=== PATIENT | female | born 1935 | race Caucasian/White ===

== ENCOUNTER → 2016-12-05 | Outpatient (CLI) | payer MEDICARE, BC ==
[2016-12-05 10:08] LABS: Basophils % (A) 1 %; CH 29.6; CHCM 33.4; Eosinophils # (A) 0.1 k/uL (0-0.7); Eosinophils % (A) 3 %; HCT 34.9 % (34.0-46.0); HDW 2.82; HGB 11.6 gm/dL (11.4-16.0); Luc # (Auto) 0.17; Luc % (Auto) 3; Lymphocytes # (A) 1.9 k/uL (1.0-4.8); Lymphocytes % (A) 37 %; MCH 29.6 pg (25.0-35.0); MCHC 33.3 g/dL (31.0-37.0); Mean Platelet Volume 8.1; Monocytes # (A) 0.3 k/uL (0-1.0); Monocytes % (A) 6 %; Neutrophils # (A) 2.6 k/uL (1.3-7.7); Neutrophils % (A) 51 %; RBC 3.92 m/uL (3.80-5.40); RDW 13.5 % (11.5-15.5); WBC 5.2 k/uL (3.8-10.6); WBC (Perox) 5.52
[2016-12-05 11:52] LABS: ALT 43 U/L (9-52); AST 40 U/L (14-36); Alkaline Phosphatase 68 U/L (38-126); Anion Gap 9 mmol/L; Blood Urea Nitrogen 17 mg/dL (7-17); Carbon Dioxide 29 mmol/L (22-30); Chloride 103 mmol/L (98-107); Cholesterol 133 mg/dL (<200); Creatine Kinase 32 U/L (30-135); Glucose 93 mg/dL (74-99); HDL Cholesterol 49 mg/dL (40-60); Iron 91 ug/dL (37-170); Non-African American GFR(MDRD) 43 (>60 ml/min/1.73 sqM); Potassium 4.4 mmol/L (3.5-5.1); Sodium 141 mmol/L (137-145); Total Bilirubin 0.9 mg/dL (0.2-1.3); Total Protein 6.9 g/dL (6.3-8.2); Triglycerides 230 mg/dL (<150)
[2016-12-05 12:06] LABS: % Iron Saturation 24.5 % (20-50); Total Iron Binding Capacity 371 ug/dL (265-497)
[2016-12-05 12:44] LABS: Vitamin B12 >1000 pg/mL
[2016-12-05 13:15] LABS: Hemoglobin A1C 5.3 % (4.2-6.1)
== END | disposition home or self-care (01) ==
LOC: LABWHC1 09:18
PROVIDERS: ATTEND Family Medicine
DX: M81.0 Age-related osteoporosis without current pathological fracture (principal); I10 Essential (primary) hypertension; N18.3 Chronic kidney disease, stage 3 (moderate); D50.9 Iron deficiency anemia, unspecified; E78.5 Hyperlipidemia, unspecified
CPT/HCPCS: 36415; 80053; 80061; 82306; 82550; 82607; 83036; 83540; 83550; 84439; 84443; 85025

== ENCOUNTER → 2017-01-06 | Outpatient (CLI) | payer MEDICARE, BC ==
--- NOTE | 2017-01-07 09:41 | MM ---
Reason for exam: screening (asymptomatic). Last mammogram was performed 1 year ago. History: Patient is postmenopausal. Family history of breast cancer in paternal aunt. Physical Findings: A clinical breast exam by your physician is recommended on an annual basis and results should be correlated with mammographic findings. MG 3D Screening Mammo W/Cad Bilateral CC and MLO view(s) were taken. Prior study comparison: January 04, 2016, bilateral MG 3d screening mammo w/cad. January 01, 2015, bilateral MG screening mammo w CAD. The breast tissue is almost entirely fat. There is no discrete abnormality. No significant changes when compared with prior studies. ASSESSMENT: Negative, BI-RAD 1 RECOMMENDATION: Routine screening mammogram of both breasts in 1 year.
== END | disposition home or self-care (01) ==
LOC: RADMAMWWP 13:24
PROVIDERS: ATTEND Family Medicine
DX: Z12.31 Encounter for screening mammogram for malignant neoplasm of breast (principal)
CPT/HCPCS: 77063; G0202

== ENCOUNTER → 2017-05-18 | Outpatient (CLI) | payer MEDICARE, BC ==
[2017-05-18 09:54] LABS: Basophils % (A) 0 %; CH 29.6; Eosinophils # (A) 0.1 k/uL (0-0.7); Eosinophils % (A) 3 %; HCT 34.3 % (34.0-46.0); HDW 2.78; Hypochromasia Slight; Luc # (Auto) 0.19; Luc % (Auto) 4; Lymphocytes % (A) 39 %; MCH 29.9 pg (25.0-35.0); MCHC 32.1 g/dL (31.0-37.0); MCV 93.2 fL (80.0-100.0); Mean Platelet Volume 8.5; Monocytes # (A) 0.3 k/uL (0-1.0); Monocytes % (A) 6 %; Neutrophils # (A) 2.4 k/uL (1.3-7.7); Neutrophils % (A) 48 %; RBC 3.68 m/uL (3.80-5.40); RDW 13.5 % (11.5-15.5); WBC 5.1 k/uL (3.8-10.6); WBC (Perox) 5.23
[2017-05-18 10:10] LABS: Calcium 9.6 mg/dL (8.4-10.2); Magnesium 1.6 mg/dL (1.6-2.3); Potassium 5.1 mmol/L (3.5-5.1); Total Bilirubin 0.8 mg/dL (0.2-1.3); Total Protein 6.8 g/dL (6.3-8.2)
== END | disposition home or self-care (01) ==
LOC: LABWHC1 09:21
PROVIDERS: ATTEND Family Medicine
DX: N18.3 Chronic kidney disease, stage 3 (moderate) (principal); M75.41 Impingement syndrome of right shoulder; K57.32 Diverticulitis of large intestine without perforation or abscess without bleeding; E78.5 Hyperlipidemia, unspecified
CPT/HCPCS: 36415; 80053; 80061; 82306; 82550; 82607; 83735; 84439; 84443; 85025

== ENCOUNTER → 2017-08-24 | Outpatient (CLI) | payer MEDICARE, BC ==
[2017-08-24 09:54] LABS: Basophils % (A) 1 %; Eosinophils # (A) 0.2 k/uL (0-0.7); Eosinophils % (A) 3 %; HCT 35.4 % (34.0-46.0); HGB 11.8 gm/dL (11.4-16.0); Lymphocytes # (A) 1.7 k/uL (1.0-4.8); Lymphocytes % (A) 31 %; MCH 29.1 pg (25.0-35.0); MCHC 33.2 g/dL (31.0-37.0); MCV 87.7 fL (80.0-100.0); Mean Platelet Volume 8.5; Monocytes # (A) 0.3 k/uL (0-1.0); Monocytes % (A) 5 %; Neutrophils # (A) 3.4 k/uL (1.3-7.7); Neutrophils % (A) 59 %; Platelet Count 193 k/uL (150-450); RBC 4.04 m/uL (3.80-5.40); WBC 5.7 k/uL (3.8-10.6)
[2017-08-24 10:12] LABS: Albumin 4.6 g/dL (3.5-5.0); Calcium 9.8 mg/dL (8.4-10.2); Potassium 4.4 mmol/L (3.5-5.1); Total Bilirubin 0.6 mg/dL (0.2-1.3)
[2017-08-24 10:18] LABS: T4, Free (Free Thyroxine) 0.99 ng/dL (0.78-2.19)
[2017-08-24 15:46] LABS: Iron Saturation 19.51 (12.00-45.00)
== END | disposition home or self-care (01) ==
LOC: LABWHC1 08:51
PROVIDERS: ATTEND Family Medicine
DX: G25.81 Restless legs syndrome (principal); E78.5 Hyperlipidemia, unspecified; I10 Essential (primary) hypertension; D50.9 Iron deficiency anemia, unspecified
CPT/HCPCS: 36415; 80053; 80061; 82607; 83540; 83550; 84439; 84443; 85025; 86304

== ENCOUNTER → 2017-09-17 | Outpatient (CLI) | payer MEDICARE, BC ==
--- NOTE | 2017-09-18 10:44 | BD ---
EXAMINATION TYPE: MG DEXA axial skeleton. DATE OF EXAM: 09/17/2017 COMPARISON: NONE CLINICAL HISTORY: Postmenopausal female. Osteoporosis screening. Height: 59 Weight: 114.6 FRAX RISK QUESTIONS: Alcohol (3 or more units per day): no Family History (Parent hip fracture): yes Glucocorticoids (More than 3mos): no (Ex: prednisone, prednisolone, methylprednisolone, dexamethasone, and hydrocortisone). History of Fracture in Adulthood: yes Secondary Osteoporosis: 1. Type 1 Diabetes: no 2. Hyperthyroidism: no 3. Menopause before 45: no 4. Malnutrition: no 5. Chronic liver disease: no Rheumatoid Arthritis: no Current Tobacco Use: no RISK FACTORS HISTORY OF: Surgery to Spine/Hip(right/left)/Wrist (right/left): no Family History of Osteoporosis: yes Active: sometimes Diet low in dairy products/other sources of calcium: yes Postmenopausal woman: around age 45 Lost more than 2 inches in height since high school: yes Frequent falls: no Poor Health: no Hyperparathyroidism: no Adrenal Insufficiency: no MEDICATIONS: blood pressure, cholesterol meds, vitamins aspirin, leg cramp meds Thyroid Medications: thyroid How Long: since 2008 Additional History: EXAM MEASUREMENTS: Bone mineral densitometry was performed using the [employer]. Bone mineral density as measured about the Lumbar spine is: ----- L1-L4(G/cm2): 1.006 T Score Values are as follows: ----- L2: -1.4 ----- L3: -1.8 ----- L4: -1.6 ----- L1-L4: -1.5 Bone mineral density has: increased 2.4 % since study of: 02.28.2015 Bone mineral density about the R hip (g/cm2): 0.736 Bone mineral density about the L hip (g/cm2): 0.769 T Score values are as follows: -----R Neck: -2.2 -----L Neck: -1.9 -----R Total: -1.3 -----L Total: -1.4 Bone mineral density has: decreased -2.3 % since study of: 02.28.2015 IMPRESSION: Osteopenia (T Score between -2.5 and -1) as noted by T score values with regards to the bilateral hip s. There is slightly increased risk of fracture and the patient may be considered for treatment. Re-Screen 2-5 years. NOTE: T-SCORE=SD OF THE YOUNG ADULT MEAN.
== END | disposition home or self-care (01) ==
LOC: RADBDWWP 14:49
PROVIDERS: ATTEND Family Medicine
DX: M85.852 Other specified disorders of bone density and structure, left thigh (principal); M85.851 Other specified disorders of bone density and structure, right thigh
CPT/HCPCS: 77080

== ENCOUNTER → 2017-09-22 | Outpatient (CLI) | payer MEDICARE, BC ==
[~2017-09-22] MED LIST: DENOSUMAB 60 MG/ML 1 ML SYRINGE SQ ONE
[2017-09-22 14:42] VITALS: BP 136/85; PULSE 65; RESP 16; TEMP 98.1
== END | disposition home or self-care (01) ==
LOC: PROCWHC3 14:04
PROVIDERS: ATTEND Family Medicine
DX: M81.0 Age-related osteoporosis without current pathological fracture (principal)
CPT/HCPCS: 96372; J0897

== ENCOUNTER → 2017-11-10 | Outpatient (CLI) | payer MEDICARE, BC ==
--- NOTE | 2017-11-10 10:43 | XR ---
EXAMINATION TYPE: XR chest 2V DATE OF EXAM: 11/10/2017 COMPARISON: 11/18/2010 HISTORY: Shortness of breath TECHNIQUE: Frontal and lateral views of the chest are obtained. FINDINGS: Scattered senescent parenchymal changes noted. Hyperinflation compatible with COPD. No evidence for infiltrate. No evidence for atelectasis. Heart size is stable. Mediastinal structures are stable and grossly unremarkable. No evidence for hilar prominence. Degenerative changes dorsal spine. IMPRESSION: 1. No evidence for acute pulmonary disease.
== END | disposition home or self-care (01) ==
LOC: RADXRMAIN 09:45
PROVIDERS: ATTEND Family Medicine
DX: R05 Cough (principal); R06.02 Shortness of breath
CPT/HCPCS: 71046

== ENCOUNTER → 2017-11-27 | Outpatient (CLI) | payer MEDICARE, BC ==
--- NOTE | 2017-11-28 15:00 | ECHOF ---
Referral Reason:R06.00 Dyspnea, unspecified MEASUREMENTS -------- HEIGHT: 144.8 cm WEIGHT: 54.0 kg BP: 188/91 RVIDd: 2.4 cm (< 3.3) IVSd: 1.1 cm (0.6 - 1.1) LVIDd: 3.3 cm (3.9 - 5.3) LVPWd: 1.1 cm (0.6 - 1.1) IVSs: 1.3 cm LVIDs: 2.0 cm LVPWs: 1.4 cm LAESV Index (A-L): 21.78 ml/m Ao Diam: 3.0 cm (2.0 - 3.7) AV Cusp: 1.6 cm (1.5 - 2.6) LA Diam: 3.0 cm (2.7 - 3.8) MV E Manuel: 0.67 m/s MV DecT: 292 ms MV A Manuel: 1.08 m/s MV E/A Ratio: 0.62 RAP: 5.00 mmHg RVSP: 35.64 mmHg FINDINGS -------- Sinus rhythm. This was a technically good study. The left ventricular size is normal. There is borderline concentric left ventricular hypertrophy. Overall left ventricular systolic function is normal with, an EF between 55 - 60 %. The right ventricle is normal in size and function. Normal LA size by volume 22+/-6 ml/m2. The right atrium is normal in size. Aortic valve is trileaflet and is mildly thickened. Trace amount of aortic regurgitation. There is no evidence of aortic stenosis. The mitral valve leaflets are mildly thickened. Mild mitral regurgitation is present. Tefd-hd-[id number] tricuspid regurgitation present. There is mild pulmonary hypertension. The right ventricular systolic pressure, as measured by Doppler, is 35.64mmHg. Trace/mild (physiologic) pulmonic regurgitation. The aortic root size is normal. Normal inferior vena cava with normal inspiratory collapse consistent with estimated right atrial pre ssure of 5 mmHg. There is no pericardial effusion. CONCLUSIONS -------- 1. Sinus rhythm. 2. This was a technically good study. 3. The left ventricular size is normal. 4. There is borderline concentric left ventricular hypertrophy. 5. Overall left ventricular systolic function is normal with, an EF between 55 - 60 %. 6. Normal LA size by volume 22+/-6 ml/m2. 7. Aortic valve is trileaflet and is mildly thickened. 8. Trace amount of aortic regurgitation. 9. The mitral valve leaflets are mildly thickened. 10. Mild mitral regurgitation is present. 11. Jwad-cl-gtpbxhpg tricuspid regurgitation present. 12. There is mild pulmonary hypertension. 13. Trace/mild (physiologic) pulmonic regurgitation. 14. The aortic root size is normal. 15. There is no pericardial effusion. DAIRY NUTRITIONIST: Jorge aNranjo RDCS
== END | disposition home or self-care (01) ==
LOC: RADECHMAIN 15:06
PROVIDERS: ATTEND Family Medicine
DX: I08.1 Rheumatic disorders of both mitral and tricuspid valves (principal); I27.20 Pulmonary hypertension, unspecified
CPT/HCPCS: 93306

== ENCOUNTER → 2017-11-30 | Outpatient (CLI) | payer MEDICARE, BC ==
[2017-11-30 09:53] LABS: Basophils % (A) 0 %; Eosinophils # (A) 0.1 k/uL (0-0.7); Eosinophils % (A) 2 %; HCT 37.9 % (34.0-46.0); HGB 12.5 gm/dL (11.4-16.0); Lymphocytes # (A) 1.9 k/uL (1.0-4.8); Lymphocytes % (A) 34 %; MCH 28.7 pg (25.0-35.0); MCHC 33.1 g/dL (31.0-37.0); MCV 86.7 fL (80.0-100.0); Mean Platelet Volume 8.2; Monocytes # (A) 0.3 k/uL (0-1.0); Monocytes % (A) 5 %; Neutrophils % (A) 55 %; Platelet Count 208 k/uL (150-450); RBC 4.37 m/uL (3.80-5.40); RDW 13.2 % (11.5-15.5); WBC 5.4 k/uL (3.8-10.6)
[2017-11-30 10:23] LABS: Albumin 4.6 g/dL (3.5-5.0); Calcium 9.8 mg/dL (8.4-10.2); Magnesium 2.1 mg/dL (1.6-2.3); Potassium 5.1 mmol/L (3.5-5.1); Total Bilirubin 0.8 mg/dL (0.2-1.3); Total Protein 7.1 g/dL (6.3-8.2)
[2017-11-30 10:34] LABS: T4, Free (Free Thyroxine) 1.05 ng/dL (0.78-2.19)
[2017-11-30 15:58] LABS: Vitamin D 25 Hydroxy 17.2 ng/mL (30.0-100.0)
[2017-11-30 18:41] LABS: Hemoglobin A1C 5.3 % (4.0-6.0)
== END | disposition home or self-care (01) ==
LOC: LABWHC1 08:54
PROVIDERS: ATTEND Family Medicine
DX: E78.5 Hyperlipidemia, unspecified (principal); N18.3 Chronic kidney disease, stage 3 (moderate); G25.81 Restless legs syndrome
CPT/HCPCS: 36415; 80053; 80061; 82306; 82607; 83036; 83735; 84439; 84443; 85025

== ENCOUNTER → 2017-12-18 | Outpatient (CLI) | payer MEDICARE, BC ==
--- NOTE | 2017-12-18 12:57 | XR ---
EXAMINATION TYPE: XR chest 2V DATE OF EXAM: 12/18/2017 COMPARISON: NONE TECHNIQUE: PA and lateral views submitted. HISTORY: short of Breath FINDINGS: The lungs are clear and there is no pneumothorax, pleural effusion, or focal pneumonia. Scattered s enescent parenchymal changes noted. Hyperinflation compatible with COPD. There is a hiatal hernia. Surgical clips in the abdomen. IMPRESSION: 1. No acute process.
--- NOTE | 2017-12-18 14:01 | NM ---
EXAMINATION TYPE: NM pul vent and perfuse DATE OF EXAM: 12/18/2017 COMPARISON: Chest x-ray 12/18/2017 HISTORY: Shortness of breath TECHNIQUE: Utilizing inhalation of 36.1 mCi Tc 99m DTPA aerosol and intravenous injection of 4.7 mCi of Tc 99m MAA, ventilation and perfusion images are acquired post injection in multiple projections. FINDINGS: There are matched defects in the upper lobes bilaterally. No sizable mismatch perfusion ventilation d efects. IMPRESSION: Matched defects in the upper lobes bilaterally consistent with intermediate probability for pulmonary embolus. This finding does not exclude chronic thromboembolic pulmonary hypertension.
--- NOTE | 2017-12-18 15:27 | CT ---
EXAMINATION TYPE: CT angio chest DATE OF EXAM: 12/18/2017 COMPARISON: NONE HISTORY: Primary pulmonary hypertension and shortness of breath, abnormal VQ scan CT DLP: 152 mGycm. Automated Exposure Control for Dose Reduction was Utilized. CONTRAST: CTA scan of the thorax is performed with IV Contrast, patient injected with 50 mL of Isovue 370, pulm onary embolism protocol. MIP Images are created on CT scanner and reviewed. FINDINGS: LUNGS: Mild underlying emphysematous changes felt present. The lungs are grossly clear, there is no c oncerning parenchymal mass or nodule identified. There is some lingular linear scarring or atelectasi s near calcified 4 mm nodule or granuloma axial image 105. There is no pleural effusion or pneumotho rax seen. The tracheobronchial tree is patent. MEDIASTINUM: There is satisfactory enhancement of the pulmonary artery and its branches, there is no CT evidence for pulmonary embolism. There are no greater than 1 cm noncalcified hilar or mediastinal lymph nodes. There are calcified subcentimeter left hilar lymph nodes. No cardiomegaly or pericardi al effusion is seen. Coronary artery calcification is present which is noted marker for coronary wero ry disease. There is nonvisualization of right thyroid lobe which may be surgically absent or asymmet rically smaller. Correlate clinically. OTHER: There is moderate size hiatal hernia. There are adjacent calcified subcentimeter lymph nodes o r less likely surgical clips. Correlate clinically. Cholecystectomy clips are present. There is mild perinephric fat stranding seen bilaterally. Osseous structures are demineralized. There is moderate t o severe multilevel spurring. Exaggerated thoracic kyphosis is noted. IMPRESSION: 1. No CT evidence for acute pulmonary embolism. No suspicious acute pulmonary process.
== END | disposition home or self-care (01) ==
LOC: RADNMMAIN 12:24
PROVIDERS: ATTEND Family Medicine
DX: R91.8 Other nonspecific abnormal finding of lung field (principal); I27.0 Primary pulmonary hypertension; R06.02 Shortness of breath; R06.00 Dyspnea, unspecified
CPT/HCPCS: 82565; 84520; 71046; 71275; 36415; 78582; A9540; A9567; Q9967

== ENCOUNTER → 2018-01-20 | Outpatient (CLI) | payer MEDICARE, BC ==
--- NOTE | 2018-01-25 13:30 | MM ---
Reason for exam: screening (asymptomatic). Last mammogram was performed 1 year ago. History: Patient is postmenopausal. Family history of breast cancer in paternal aunt. Physical Findings: A clinical breast exam by your physician is recommended on an annual basis and results should be correlated with mammographic findings. MG Screening Mammo w CAD Bilateral CC and MLO view(s) were taken. Prior study comparison: January 06, 2017, bilateral MG 3d screening mammo w/cad. January 04, 2016, bilateral MG 3d screening mammo w/cad. The breast tissue is almost entirely fat. There is chronic nodularity in the left breast. No significant changes when compared with prior studies. ASSESSMENT: Benign, BI-RAD 2 RECOMMENDATION: Routine screening mammogram of both breasts in 1 year.
== END | disposition home or self-care (01) ==
LOC: RADMAMWWP 12:59
PROVIDERS: ATTEND Family Medicine
DX: Z12.31 Encounter for screening mammogram for malignant neoplasm of breast (principal)
CPT/HCPCS: 77067

== ENCOUNTER → 2018-06-09 | Outpatient (CLI) | payer MEDICARE, BC ==
[2018-06-09 10:01] LABS: Basophils % (A) 0 %; Eosinophils # (A) 0.1 k/uL (0-0.7); Eosinophils % (A) 2 %; HCT 31.9 % (34.0-46.0); HGB 10.6 gm/dL (11.4-16.0); Lymphocytes # (A) 1.1 k/uL (1.0-4.8); Lymphocytes % (A) 25 %; MCH 29.2 pg (25.0-35.0); MCHC 33.2 g/dL (31.0-37.0); MCV 87.9 fL (80.0-100.0); Mean Platelet Volume 8.5; Monocytes # (A) 0.2 k/uL (0-1.0); Monocytes % (A) 5 %; Neutrophils # (A) 2.9 k/uL (1.3-7.7); Neutrophils % (A) 66 %; Platelet Count 169 k/uL (150-450); RBC 3.63 m/uL (3.80-5.40); RDW 13.2 % (11.5-15.5); WBC 4.4 k/uL (3.8-10.6)
[2018-06-09 18:03] LABS: Albumin 4.7 g/dL (3.80-4.90); Albumin/Globulin Ratio 3.13 (1.20-2.10); Anion Gap 7.9 mmol/L (4.00-12.00); Calcium 9.5 mg/dL (8.7-10.3); Carbon Dioxide 27.1 mmol/L (21.6-31.8); Globulin 1.5 g/dL (2.1-3.7); LDL Cholesterol,Calculated 36.6 mg/dL (0.0-131.0); Potassium 4.6 mmol/L (3.5-5.5); Total Bilirubin 0.8 mg/dL (0.3-1.2); Total Protein 6.2 g/dL (6.2-8.2); VLDL Calculation 26.4 mg/dL (5.00-40.00)
[2018-06-09 18:11] LABS: T4, Free (Free Thyroxine) 1.3 ng/dL (0.80-1.80)
== END | disposition home or self-care (01) ==
LOC: LABWHC1 08:48
PROVIDERS: ATTEND Family Medicine
DX: I27.24 Chronic thromboembolic pulmonary hypertension (principal); E78.5 Hyperlipidemia, unspecified
CPT/HCPCS: 36415; 80053; 80061; 82306; 82607; 84439; 84443; 85025; 85379

== ENCOUNTER → 2018-08-26 | Outpatient (CLI) | payer MEDICARE, BC ==
[2018-08-26 09:15] VITALS: BP 143/70; PULSE 78; RESP 18; TEMP 98.3
== END ==
LOC: PROCWHC3 08:42
PROVIDERS: ATTEND Family Medicine
DX: M81.0 Age-related osteoporosis without current pathological fracture (principal)
CPT/HCPCS: 96372; J0897

== ENCOUNTER → 2018-09-27 | Outpatient (CLI) | payer MEDICARE, BC ==
[2018-09-27 11:12] LABS: Basophils % (A) 0 %; Eosinophils # (A) 0.1 k/uL (0-0.7); Eosinophils % (A) 2 %; HCT 34.5 % (34.0-46.0); Lymphocytes # (A) 1.4 k/uL (1.0-4.8); Lymphocytes % (A) 31 %; MCH 28.4 pg (25.0-35.0); MCHC 31.9 g/dL (31.0-37.0); MCV 89.1 fL (80.0-100.0); Mean Platelet Volume 7.5; Monocytes # (A) 0.3 k/uL (0-1.0); Monocytes % (A) 6 %; Neutrophils # (A) 2.7 k/uL (1.3-7.7); Neutrophils % (A) 59 %; Platelet Count 190 k/uL (150-450); RBC 3.87 m/uL (3.80-5.40); RDW 13.4 % (11.5-15.5); WBC 4.5 k/uL (3.8-10.6)
[2018-09-27 17:21] LABS: Albumin 4.5 g/dL (3.80-4.90); Albumin/Globulin Ratio 2.81 (1.60-3.17); Anion Gap 8.1 mmol/L (4.00-12.00); Calcium 8.9 mg/dL (8.7-10.3); Carbon Dioxide 27.9 mmol/L (21.6-31.8); Globulin 1.6 g/dL (1.6-3.3); Potassium 5.1 mmol/L (3.5-5.5); Total Bilirubin 0.5 mg/dL (0.2-1.2); Total Protein 6.1 g/dL (6.2-8.2)
[2018-09-27 17:27] LABS: T4, Free (Free Thyroxine) 1.2 ng/dL (0.80-1.80)
[2018-09-27 22:54] LABS: Hemoglobin A1C 6.2 % (4.0-6.0)
== END | disposition home or self-care (01) ==
LOC: LABWHC1 09:26
PROVIDERS: ATTEND Family Medicine
DX: N18.3 Chronic kidney disease, stage 3 (moderate) (principal); G89.4 Chronic pain syndrome; R73.01 Impaired fasting glucose
CPT/HCPCS: 36415; 80053; 80061; 82607; 83036; 84439; 84443; 85025

== ENCOUNTER → 2018-10-19 | Day surgery (SDC) | payer MEDICARE, BC ==
[2018-10-13 10:13] VITALS: BMI 25.7
[~2018-10-19] MED LIST changes: -DENOSUMAB 60 MG/ML 1 ML SYRINGE SQ ONE; +SODIUM CHLORIDE 0.9% 1,000 ML IV SCH
[2018-10-19 11:31] VITALS: RESP 18; TEMP 98.2
--- NOTE | 2018-10-19 15:55 | P.PCN ---
Preoperative Diagnosis: Diagnosis Recurrent dizzy spells/syncope Twelve-lead ECG shows sinus rhythm normal [place] narrow QRS normal ST segments normal QT interval no delta waves no epsilon waves Tilt table test per protocol Baseline blood pressure 156/82 mmHg, Baseline heart rate 84 beats a minute Patient was tilted upright at 9070 per protocol there was minimal change in her blood pressure no change in her heart rate no evidence for neurocardiogenic syncope No evidence for any dysautonomia Impression Normal 12-lead ECG Normal heart rate and blood pressure response to upright tilting Baseline hypertension
[2018-10-19 16:50] VITALS: BP 112/84; PULSE 76
== END | disposition home or self-care (01) ==
LOC: CATHEP 10:51
PROVIDERS: ATTEND Internal Medicine Clinical Cardiac Electrophysiology
DX: R42 Dizziness and giddiness (principal); I10 Essential (primary) hypertension; Z88.8 Allergy status to other drugs, medicaments and biological substances
CPT/HCPCS: 93660

== ENCOUNTER → 2018-10-20 | Outpatient (CLI) | payer MEDICARE, BC ==
--- NOTE | 2018-10-20 14:02 | US ---
EXAMINATION TYPE: US carotid duplex BILAT DATE OF EXAM: 10/20/2018 COMPARISON: NONE CLINICAL HISTORY: vertigo R42. Tortuous vessels bilaterally. EXAM MEASUREMENTS: RIGHT: Peak Systolic Velocity (PSV) cm/sec ----- Right CCA: 55.1 ----- Right ICA: 70.2 ----- Right ECA: 66.4 ICA/CCA ratio: 1.3 RIGHT: End Diastole cm/sec ----- Right CCA: 22.2 ----- Right ICA: 28.5 ----- Right ECA: 8.3 LEFT: Peak Systolic Velocity (PSV) cm/sec ----- Left CCA: 55.2 ----- Left ICA: 116.0 ----- Left ECA: 73.7 ICA/CCA ratio: 2.1 LEFT: End Diastole cm/sec ----- Left CCA: 17.6 ----- Left ICA: 50.1 ----- Left ECA: 10.7 VERTEBRALS (direction of flow): Right Vertebral: Antegrade Left Vertebral: Antegrade Rhythm: Normal Tortuous vessels visualized bilaterally. Grayscale images show mild peripheral hyperechoic plaque centered at bilateral carotid bulbs. Peak sy stolic velocity of bilateral internal carotid arteries is within normal limits. IMPRESSION: Mild plaque bilaterally without convincing evidence for hemodynamic significant stenosis in either internal carotid artery . Criteria for Assigning % of Stenosis / Diameter reduction (Estimation based on the indirect measurements of the internal carotid artery velocities (ICA PSV). 1. Normal (no stenosis)=ICA PSV < 125 cm/s: ratio < 2.0: ICA EDV<40 cm/s. 2. Less than 50% stenosis=ICA PSV < 125 cm/s: ratio < 2.0: ICA EDV<40 cm/s. 3. 50 to 69% stenosis=ICA PSV of 125 to 230 cm/s: ration 2.0 ? 4.0: ICA EDV 40-100 cm/s. 4. Greater than 70% stenosis to near occlusion= ICA PSV > 230 cm/s: ratio > 4.0: ICA EDV > 100 cm/s. 5. Near occlusion= ICA PSV velocities may be low or undetectable: variable ratio and ICA EDV. 6. Total occlusion=unable to detect flow.
--- NOTE | 2018-10-20 18:07 | ECHOF ---
Referral Reason:I27.24 MEASUREMENTS -------- HEIGHT: 152.4 cm WEIGHT: 54.0 kg BP: RVIDd: 2.9 cm (< 3.3) IVSd: 1.0 cm (0.6 - 1.1) LVIDd: 3.3 cm (3.9 - 5.3) LVPWd: 1.0 cm (0.6 - 1.1) IVSs: 1.4 cm LVIDs: 2.2 cm LVPWs: 1.3 cm LAESV Index (A-L): 15.62 ml/m Ao Diam: 2.5 cm (2.0 - 3.7) AV Cusp: 1.5 cm (1.5 - 2.6) LA Diam: 2.1 cm (2.7 - 3.8) MV EXCURSION: 14.382 mm (> 18.000) MV EF SLOPE: 65 mm/s (70 - 150) EPSS: 0.4 cm MV E Manuel: 0.72 m/s MV DecT: 239 ms MV A Manuel: 0.94 m/s MV E/A Ratio: 0.77 RAP: 5.00 mmHg RVSP: 43.54 mmHg FINDINGS -------- Sinus rhythm. This was a technically good study. The left ventricular size is normal. Left ventricular wall thickness is normal. Overall left vent ricular systolic function is normal with, an EF between 55 - 60 %. The right ventricle is normal in size and function. Normal LA size by volume 22+/-6 ml/m2. RA appears enlarged. The aortic valve is trileaflet, and appears structurally normal. No aortic stenosis or regurgitation. The mitral valve leaflets are mildly thickened. There is trace to mild mitral regurgitation. Jfks-zo-bjjshxnq tricuspid regurgitation present. There is mild pulmonary hypertension. The right ventricular systolic pressure, as measured by Doppler, is 43.54mmHg. Trace/mild (physiologic) pulmonic regurgitation. The aortic root size is normal. Normal inferior vena cava with normal inspiratory collapse consistent with estimated right atrial pre ssure of 5 mmHg. There is no pericardial effusion. CONCLUSIONS -------- 1. Sinus rhythm. 2. This was a technically good study. 3. The left ventricular size is normal. 4. Left ventricular wall thickness is normal. 5. Overall left ventricular systolic function is normal with, an EF between 55 - 60 %. 6. Normal LA size by volume 22+/-6 ml/m2. 7. RA appears enlarged. 8. The aortic valve is trileaflet, and appears structurally normal. No aortic stenosis or regurgitati on. 9. The mitral valve leaflets are mildly thickened. 10. There is trace to mild mitral regurgitation. 11. Zdxz-pw-vsrjbxdf tricuspid regurgitation present. 12. There is mild pulmonary hypertension. 13. The right ventricular systolic pressure, as measured by Doppler, is 43.54mmHg. 14. Trace/mild (physiologic) pulmonic regurgitation. 15. The aortic root size is normal. 16. There is no pericardial effusion. PULMONARY NURSE PRACTITIONER: Jorge Caraballo RDCS
== END | disposition home or self-care (01) ==
LOC: RADUSWWP 12:19
PROVIDERS: ATTEND Family Medicine
DX: I27.20 Pulmonary hypertension, unspecified (principal); I08.1 Rheumatic disorders of both mitral and tricuspid valves; R42 Dizziness and giddiness
CPT/HCPCS: 93306; 93880

== ENCOUNTER → 2018-11-18 | Outpatient (CLI) | payer MEDICARE, BC ==
--- NOTE | 2018-11-18 11:59 | NM ---
EXAMINATION TYPE: NM pul vent and perfuse DATE OF EXAM: 11/18/2018 COMPARISON: Previous nuclear medicine exam 12/18/2017, CT chest 12/18/2017 HISTORY: Abnormal coagulation profile, difficulty breathing TECHNIQUE: Utilizing inhalation of 36.8 mCi Tc 99m DTPA aerosol and intravenous injection of 4.7 mCi of Tc 99m MAA, ventilation and perfusion images are acquired post injection in multiple projections. FINDINGS: Relatively homogenous radio pharmaceutical uptake present within the lungs, perfusion uptake is somew hat more homogenous than ventilation uptake. No ventilation/perfusion mismatches. IMPRESSION: Low probability for pulmonary embolism.
--- NOTE | 2018-11-18 12:49 | XR ---
EXAMINATION TYPE: XR chest 2V DATE OF EXAM: 11/18/2018 COMPARISON: Prior chest x-ray 12/18/2017 HISTORY: Primary pulmonary hypertension, shortness of breath TECHNIQUE: Frontal and lateral views of the chest are obtained. FINDINGS: Findings are similar to prior exam. There is hyperinflation. Surgical clips present near t he gastroesophageal junction level. Aorta is tortuous and dense. Heart size is stable and within norm al limits. No evident airspace disease, pneumothorax, or pleural effusion. Patient is rotated. Surgic al clips present in the right upper quadrant. Distal right clavicle shows probable postop change as o n prior. IMPRESSION: No acute cardiopulmonary process.
== END ==
LOC: RADNMMAIN 09:01
PROVIDERS: ATTEND Family Medicine
DX: R79.1 Abnormal coagulation profile (principal)
CPT/HCPCS: 71046; 78582; A9540; A9567

== ENCOUNTER → 2018-11-26 | Outpatient (CLI) | payer MEDICARE, BC | LOC: NEUROMAIN 11-17 08:15 | PROVIDERS: ATTEND Family Medicine | DX: H55.00 Unspecified nystagmus (principal) | CPT/HCPCS: 92537; 92540 ==

== ENCOUNTER → 2019-04-20 | Outpatient (CLI) | payer MEDICARE, BC ==
--- NOTE | 2019-04-20 10:39 | XR ---
EXAMINATION TYPE: XR cervical spine comp DATE OF EXAM: 04/20/2019 COMPARISON: NONE HISTORY: Pain TECHNIQUE: Four views are submitted. FINDINGS: The odontoid is intact. There are no compression deformities. The prevertebral soft tissue structur es are within normal limits. There is severe multilevel degenerative disc disease involving levels C 3-C6 with moderate changes at C6-C7. Multilevel facet arthropathy noted. Multilevel foraminal encroac hment suggested. Calcification the soft tissues the neck likely related atherosclerotic change of the carotid arteries. IMPRESSION: 1. Multilevel severe degenerative disc disease with foraminal encroachment recommend follow-up MRI. 2. Carotid artery atherosclerotic changes.
== END | disposition home or self-care (01) ==
LOC: RADXRMAIN 10:03
PROVIDERS: ATTEND Family Medicine
DX: M50.31 Other cervical disc degeneration, high cervical region (principal)
CPT/HCPCS: 72050

== ENCOUNTER → 2019-04-28 | Outpatient (CLI) | payer MEDICARE, BC ==
[~2019-04-28] MED LIST changes: +REGADENOSON 0.4 MG/5 ML SYRINGE IV ONE; -SODIUM CHLORIDE 0.9% 1,000 ML IV SCH
--- NOTE | 2019-04-28 13:14 | NM ---
EXAMINATION TYPE: NM stress lexiscan cardiolite DATE OF EXAM: 04/28/2019 COMPARISON: NONE HISTORY: Chest pain TECHNIQUE: After the intravenous administration of 10.23 mCi Tc 99m Sestamibi - Cardiolite resting S PECT images acquired 45 minutes post injection. The patient received 0.4mg Lexiscan, 25.4 mCi Tc 99m Sestamibi - Stress images obtained [address] injection FINDINGS: Review of stress and rest SPECT images demonstrates no distinct perfusion abnormality. Gated analysi s shows normal wall motion with an estimated left ventricular ejection fraction of 70 % on rest image s, 100% on stress images which is likely technical. IMPRESSION: No scintigraphic evidence for reversible ischemia. Elevated ejection fraction, recommend echocardiogr aphic relation.
--- NOTE | 2019-04-29 12:29 | EST ---
EXERCISE STRESS AGE: 83 SEX: F HT: 59" WT: 108 PROTOCOL: Lexiscan Cardiolite Stress Test HEART RATE REST: 68 BLOOD PRESSURE REST: 127/74 MAXIMUM HEART RATE ACHIEVED: 108 MAXIMUM BLOOD PRESSURE: 127/74 INDICATIONS: Chest pain. CLINICAL INFORMATION: STRESS DATA: Heart rate 68, pressure is 127/74 mmHg. Baseline EKG showed sinus mechanism, 0.4 mg of Lexiscan given over 15 seconds per protocol. Max heart rate was 108 beats per minute and maximum pressure was 127/74. Clinically, no symptoms reported. The EKG did not show any significant ST or T-wave abnormalities. CONCLUSION: 1. Nondiagnostic electrocardiogram stress testing in response to Lexiscan. 2. Please follow up on the Cardiolite portion on a separate report from the Radiology Department. MMODL / IJN: [id number] /
== END | disposition home or self-care (01) ==
LOC: RADNMMAIN 08:15
PROVIDERS: ATTEND Family Medicine
DX: R07.9 Chest pain, unspecified (principal)
CPT/HCPCS: 93017; 78452; A9500; J2785

== ENCOUNTER → 2019-05-27 | Outpatient (CLI) | payer MEDICARE, BC ==
--- NOTE | 2019-05-27 15:07 | US ---
EXAMINATION TYPE: US carotid duplex BILAT DATE OF EXAM: 05/27/2019 COMPARISON: US 10/20/2018 CLINICAL HISTORY: I65.29 Carotid stenosis. EXAM MEASUREMENTS: RIGHT: Peak Systolic Velocity (PSV) cm/sec ----- Right CCA: 47.4 ----- Right ICA: 68.8 ----- Right ECA: 136.1 ICA/CCA ratio: 1.5 RIGHT: End Diastole cm/sec ----- Right CCA: 14.7 ----- Right ICA: 18.2 ----- Right ECA: 0.0 LEFT: Peak Systolic Velocity (PSV) cm/sec ----- Left CCA: 66.0 ----- Left ICA: 85.3 ----- Left ECA: 64.4 ICA/CCA ratio: 1.3 LEFT: End Diastole cm/sec ----- Left CCA: 19.7 ----- Left ICA: 30.3 ----- Left ECA: 0.0 VERTEBRALS (direction of flow): Right Vertebral: Antegrade Left Vertebral: Antegrade Rhythm: Normal No significant stenosis seen. Tortuous vessels. IMPRESSION: Mild degree of grayscale atheromatous plaquing with no sonographically evident hemodynam ically significant stenosis within either visualized carotid arterial system. Criteria for Assigning % of Stenosis / Diameter reduction (Estimation based on the indirect measurements of the internal carotid artery velocities (ICA PSV). 1. Normal (no stenosis)=ICA PSV < 125 cm/s: ratio < 2.0: ICA EDV<40 cm/s. 2. Less than 50% stenosis=ICA PSV < 125 cm/s: ratio < 2.0: ICA EDV<40 cm/s. 3. 50 to 69% stenosis=ICA PSV of 125 to 230 cm/s: ration 2.0 ? 4.0: ICA EDV 40-100 cm/s. 4. Greater than 70% stenosis to near occlusion= ICA PSV > 230 cm/s: ratio > 4.0: ICA EDV > 100 cm/s. 5. Near occlusion= ICA PSV velocities may be low or undetectable: variable ratio and ICA EDV. 6. Total occlusion=unable to detect flow.
== END ==
LOC: RADUSWWP 14:05
PROVIDERS: ATTEND Family Medicine
DX: I65.23 Occlusion and stenosis of bilateral carotid arteries (principal)
CPT/HCPCS: 93880

== ENCOUNTER → 2019-09-15 | Outpatient (CLI) | payer MEDICARE, BC ==
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
== END | disposition home or self-care (01) ==
LOC: RADMRIMAIN 12:55
PROVIDERS: ATTEND Family Medicine
DX: M43.12 Spondylolisthesis, cervical region (principal); M47.812 Spondylosis without myelopathy or radiculopathy, cervical region
CPT/HCPCS: 72141

== ENCOUNTER 2019-09-24 06:37 | Inpatient (IN) | payer MEDICARE, BC ==
[2019-09-24] MEDS ORDERED: ASPIRIN 81 MG PO STA (06:59)
[2019-09-24] MEDS ORDERED: amLODIPine 5 MG TAB PO STA (07:00)
--- NOTE | 2019-09-24 07:04 | ED ---
General Adult HPI - General Chief complaint: Chest Pain Stated complaint: shortness of breath Time Seen by Provider: 09/24/19 06:43 Source: patient, RN notes reviewed Mode of arrival: ambulatory Limitations: no limitations - History of Present Illness Initial comments: This is an 83-year-old female presents emergency Department with chief complaint of shortness of breath. Patient states that she developed cold like symptoms over a week ago. She states is progressively gotten worse. She states today that symptoms worsened overnight time states that she feels that she cannot get a deep breath in. She states there is some discomfort associated with this. She does admit that she's had a prior pulmonary embolism in which she was on Eliquis up until last month. Patient states that she does have some bloating, abdominal discomfort. Patient denies any recent fevers or chills but states that she has had some on-and-off throughout her cold. She does admit that she's had prior history of hypertension, hyperlipidemia and which she takes medica tions for she was a smoker at age 15 states that she quit shortly after starting. Patient states that she has not taken her morning blood pressure medication. Patient does feel very anxious at this time. - Related Data Home Medications Medication Instructions Recorded Confirmed Aspirin [Adult Low Dose Aspirin EC] 81 mg PO DAILY 08/26/18 10/13/18 Cholecalciferol [Vitamin D3] 2,000 unit PO MOTUWETH 08/26/18 10/13/18 Cyanocobalamin (Vitamin B-12) 1,000 mcg PO MOWEFR 08/26/18 10/13/18 [Vitamin B-12] Ferrous Sulfate [Iron (65 MG 65 mg PO HS 08/26/18 10/13/18 Elemental)] Levothyroxine Sodium [Tirosint] 25 mcg PO QAM 08/26/18 10/13/18 Pantoprazole Sodium 40 mg PO QAM 08/26/18 10/13/18 Triamterene/Hydrochlorothiazid 1 each PO DAILY PRN 08/26/18 10/13/18 [Triamterene-Hctz 37.5-25 mg Tb] Vit C/E/Zn/Coppr/Lutein/Zeaxan 1 each PO BID 08/26/18 10/13/18 [Preservision Areds 2 Softgel] amLODIPine [Norvasc] 5 mg PO DAILY 08/26/18 10/13/18 rOPINIRole HCL [Requip] 0.5 mg PO HS PRN 08/26/18 10/13/18 Cholecalciferol [Vitamin D3] 4,000 unit PO SUFRSA 10/13/18 10/13/18 HYDROcodone/APAP 5-325MG [[place] 1 tab PO Q6HR PRN 10/13/18 10/13/18 5-325] Simvastatin 10 mg PO HS 10/13/18 10/13/18 Allergies Allergy/AdvReac Type Severity Reaction Status Date / Time egg AdvReac Intermediate Unknown Verified 10/13/18 09:52 milk AdvReac Intermediate Diarrhea Verified 10/13/18 09:52 prednisone AdvReac Intermediate Unknown Verified 10/13/18 09:52 corn AdvReac Nausea & Verified 09/24/19 06:44 Vomiting & Diarrhea duloxetine AdvReac Nausea & Verified 09/24/19 06:44 Vomiting & Diarrhea garlic AdvReac Nausea & Verified 09/24/19 06:44 Vomiting & Diarrhea peanut AdvReac Nausea & Verified 09/24/19 06:44 Vomiting & Diarrhea wheat AdvReac Nausea & Verified 09/24/19 06:44 Vomiting & Diarrhea Review of Systems ROS Statement: Those systems with pertinent positive or pertinent negative responses have been documented in the HPI. ROS Other: All systems not noted in ROS Statement are negative. Past Medical History Past Medical History: Eye Disorder, GERD/Reflux, Hearing Disorder / Deafness, Hyperlipidemia, Hypertension, Memory Impairment, Osteoarthritis (OA), Pneumonia, Pulmonary Embolus (PE), Thyroid Disorder Additional Past Medical History / Comment(s): Hx pneumonia as a child. MACULAR D EGENERATION. Use of hearing aids. OSTEOPOROSIS. "Blood clots in lungs, December 2017." History of Any Multi-Drug Resistant Organisms: None Reported Past Surgical History: Cholecystectomy, Hernia Repair, Orthopedic Surgery, Tubal Ligation Additional Past Surgical History / Comment(s): Hernia repair X2. RIGHT SHOULDER SURGERY. Right thyroidectomy. Past Anesthesia/Blood Transfusion Reactions: No Reported Reaction Past Psychological History: No Psychological Hx Reported Smoking Status: Former smoker Past Alcohol Use History: Rare Past Drug Use History: None Reported - Past Family History Mother Family Medical History: Cancer Additional Family Medical History / Comment(s): LUNG CANCER. Father Family Medical History: Diabetes Mellitus, Myocardial Infarction (NH) General Exam Limitations: no limitations General appearance: alert, in no apparent distress Head exam: Present: atraumatic, normocephalic, normal inspection Eye exam: Present: normal appearance, PERRL, EOMI. Absent: scleral icterus, conjunctival injection, periorbital swelling ENT exam: Present: normal exam, normal oropharynx, mucous membranes moist, TM's normal bilaterally Neck exam: Present: normal inspection, full ROM. Absent: tenderness, meningismus, lymphadenopathy Respiratory exam: Present: normal lung sounds bilaterally. Absent: respiratory distress, wheezes, rales, rhonchi, stridor Cardiovascular Exam: Present: regular rate, normal rhythm, normal heart sounds. Absent: systolic murmur, diastolic murmur, rubs, gallop, clicks GI/Abdominal exam: Present: soft, normal bowel sounds. Absent: distended, tenderness, guarding, rebound, rigid Neurological exam: Present: alert, oriented X3, CN II-XII intact Skin exam: Present: warm, dry, intact, normal color. Absent: rash Course Vital Signs 09/24/19 09/24/19 09/24/19 06:39 07:30 08:42 Temperature 98.2 F Pulse Rate 85 64 65 Respiratory 18 18 16 Rate Blood Pressure 182/109 146/78 169/90 O2 Sat by Pulse 99 100 100 Oximetry 09/24/19 09:01 Temperature Pulse Rate 64 Respiratory 18 Rate Blood Pressure 134/90 O2 Sat by Pulse 100 Oximetry EKG Findings - EKG Comments: EKG Findings:: EKG performed at 6:54 normal sinus rhythm rate of 82 MT 140 QRS 74 QT/QTC 374/[address] elevation or depression Medical Decision Making - Medical Decision Making Patient had workup including labs EKG chest x-ray and CT of the chest. Patient finger for PE, EKG does not show any acute changes at this time. Patient continues to have dyspnea, exertional dyspnea some mild chest. Patient will be admitted for serial enzymes, cardiology evaluation and echocardiogram. - Lab Data Result diagrams: 09/24/19 07:03 09/24/19 07:03 Lab Results 09/24/19 09/24/19 09/24/19 Range/Units 07:03 07:03 07:03 WBC 6.7 (3.8-10.6) k/uL RBC 4.34 (3.80-5.40) m/uL Hgb 12.5 (11.4-16.0) gm/dL Hct 36.8 (34.0-46.0) % MCV 84.9 (80.0-100.0) fL MCH 28.9 (25.0-35.0) pg MCHC 34.0 (31.0-37.0) g/dL RDW 12.6 (11.5-15.5) % Plt Count 190 (150-450) k/uL Neutrophils % 65 % Lymphocytes % 25 % Monocytes % 5 % Eosinophils % 2 % Basophils % 1 % Neutrophils # 4.4 (1.3-7.7) k/uL Lymphocytes # 1.6 (1.0-4.8) k/uL Monocytes # 0.3 (0-1.0) k/uL Eosinophils # 0.1 (0-0.7) k/uL Basophils # 0.0 (0-0.2) k/uL PT 9.5 (9.0-12.0) sec INR 0.9 (<1.2) APTT 22.0 (22.0-30.0) sec D-Dimer 0.73 H (<0.60) mg/L FEU Sodium 128 L (137-145) mmol/L Potassium 4.6 (3.5-5.1) mmol/L Chloride 94 L (98-107) mmol/L Carbon Dioxide 22 (22-30) mmol/L Anion Gap 12 mmol/L BUN 17 (7-17) mg/dL Creatinine 1.00 (0.52-1.04) mg/dL Est GFR (CKD-EPI)AfAm 61 (>60 ml/min/1.73 sqM) Est GFR (CKD-EPI)NonAf 53 (>60 ml/min/1.73 sqM) Glucose 104 H (74-99) mg/dL Calcium 10.3 H (8.4-10.2) mg/dL Magnesium 1.7 (1.6-2.3) mg/dL Total Bilirubin 1.0 (0.2-1.3) mg/dL AST 33 (14-36) U/L ALT 17 (4-34) U/L Alkaline Phosphatase 62 (38-126) U/L Troponin I (0.000-0.034) ng/mL NT-Pro-B Natriuret Pep pg/mL Total Protein 7.4 (6.3-8.2) g/dL Albumin 4.9 (3.5-5.0) g/dL Lipase 70 (23-300) U/L Influenza Type A RNA (Not Detectd) Influenza Type B (PCR) (Not Detectd) 09/24/19 09/24/19 09/24/19 Range/Units 07:03 07:03 07:20 WBC (3.8-10.6) k/uL RBC (3.80-5.40) m/uL Hgb (11.4-16.0) gm/dL Hct (34.0-46.0) % MCV (80.0-100.0) fL MCH (25.0-35.0) pg MCHC (31.0-37.0) g/dL RDW (11.5-15.5) % Plt Count (150-450) k/uL Neutrophils % % Lymphocytes % % Monocytes % % Eosinophils % % Basophils % % Neutrophils # (1.3-7.7) k/uL Lymphocytes # (1.0-4.8) k/uL Monocytes # (0-1.0) k/uL Eosinophils # (0-0.7) k/uL Basophils # (0-0.2) k/uL PT (9.0-12.0) sec INR (<1.2) APTT (22.0-30.0) sec D-Dimer (<0.60) mg/L FEU Sodium (137-145) mmol/L Potassium (3.5-5.1) mmol/L Chloride (98-107) mmol/L Carbon Dioxide (22-30) mmol/L Anion Gap mmol/L BUN (7-17) mg/dL Creatinine (0.52-1.04) mg/dL Est GFR (CKD-EPI)AfAm (>60 ml/min/1.73 sqM) Est GFR (CKD-EPI)NonAf (>60 ml/min/1.73 sqM) Glucose (74-99) mg/dL Calcium (8.4-10.2) mg/dL Magnesium (1.6-2.3) mg/dL Total Bilirubin (0.2-1.3) mg/dL AST (14-36) U/L ALT (4-34) U/L Alkaline Phosphatase (38-126) U/L Troponin I <0.012 (0.000-0.034) ng/mL NT-Pro-B Natriuret Pep 109 pg/mL Total Protein (6.3-8.2) g/dL Albumin (3.5-5.0) g/dL Lipase (23-300) U/L Influenza Type A RNA Not Detected (Not Detectd) Influenza Type B (PCR) Not Detected (Not Detectd) Disposition Clinical Impression: Chest pain, Exertional dyspnea Disposition: ADMITTED IP TO THIS HOSP Condition: Fair Referrals: Chela Carlin MD [Primary Care Provider] - 1-2 days
[2019-09-24 07:12] LABS: Basophils % (A) 1 %; Eosinophils # (A) 0.1 k/uL (0-0.7); Eosinophils % (A) 2 %; HCT 36.8 % (34.0-46.0); HGB 12.5 gm/dL (11.4-16.0); Lymphocytes # (A) 1.6 k/uL (1.0-4.8); Lymphocytes % (A) 25 %; MCH 28.9 pg (25.0-35.0); MCV 84.9 fL (80.0-100.0); Mean Platelet Volume 8.1; Monocytes # (A) 0.3 k/uL (0-1.0); Monocytes % (A) 5 %; Neutrophils # (A) 4.4 k/uL (1.3-7.7); Neutrophils % (A) 65 %; Platelet Count 190 k/uL (150-450); RBC 4.34 m/uL (3.80-5.40); RDW 12.6 % (11.5-15.5); WBC 6.7 k/uL (3.8-10.6)
[2019-09-24 07:27] LABS: Albumin 4.9 g/dL (3.5-5.0); Calcium 10.3 mg/dL (8.4-10.2); Magnesium 1.7 mg/dL (1.6-2.3); Potassium 4.6 mmol/L (3.5-5.1); Total Protein 7.4 g/dL (6.3-8.2)
[2019-09-24 07:28] LABS: INR 0.9 (<1.2); Prothrombin Time 9.5 sec (9.0-12.0)
--- NOTE | 2019-09-24 07:31 | XR ---
EXAMINATION TYPE: XR chest 2V DATE OF EXAM: 09/24/2019 HISTORY: Chest Pain. REFERENCE: Previous study dated 11/18/2018 heart size upper limits of normal. The lungs are clear. Pleu ral spaces are clear. FINDINGS: Heart size is upper limits of normal. The lungs are clear. Pleural spaces are clear. IMPRESSION: NO ACUTE CARDIOTHORACIC ABNORMALITY.
[2019-09-24 08:00] LABS: D-Dimer 0.73 mg/L FEU (<0.60)
--- NOTE | 2019-09-24 09:01 | CT ---
EXAMINATION TYPE: CT chest angio for PE DATE OF EXAM: 09/24/2019 COMPARISON: None. HISTORY: SOB CT DLP: 226 mGycm Automated exposure control for dose reduction was used. CONTRAST: CT Chest for pulmonary embolism performed with with IV Contrast, patient injected with 66 mL of Isovu e 370. FINDINGS: The lungs appear clear. There is no significant axillary, internal mammary, mediastinal or hilar adenopathy. There is no evidence of pulmonary embolus. The aorta is normal in caliber without evidence of dissection. Heart size upper limits of normal. The re is no pleural or pericardial fluid. There is a prominent sliding hiatal hernia. Visualized portions of the upper abdomen are otherwise unremarkable. There is degenerative disc disease and hypertrophic spondylosis within the spine. IMPRESSION: 1. THIS EXAMINATION IS NEGATIVE FOR PULMONARY EMBOLUS. 2. BORDERLINE CARDIOMEGALY. 3. PROMINENT HIATAL HERNIA.
[2019-09-24] MEDS ORDERED: HEPARIN SODIUM,PORCINE 5,000 UNIT/ML 1 ML VIAL IV PRN (09:11)
[2019-09-24] MEDS ORDERED: HEPARIN SODIUM,PORCINE 5,000 UNIT/ML 1 ML VIAL IV ONE (09:11)
[2019-09-24] MEDS ORDERED: NITROGLYCERIN SL TABS 0.4 MG TAB SUBLINGUAL PRN ×2 (09:11→13:47)
[2019-09-24] MEDS ORDERED: HEPARIN SOD,PORK IN 0.45% NACL 25,000 UNIT in 0.45% NACL 1 250ML.BAG IV SCH (09:15)
[2019-09-24] MEDS: SODIUM CHLORIDE 0.9% 1,000 ML IV SCH ×2 (09:31→22:50)
[2019-09-24] MEDS ORDERED: KETOROLAC 30 MG/ML 1 ML VIAL IVP STA (09:33)
[2019-09-24] MEDS ORDERED: FLUTICASONE 50MCG/SPRAY NASAL 16GM EA NOSTRIL PRN (13:47)
[2019-09-24] MEDS ORDERED: TRIAMTERENE-HCTZ 37.5-25MG 1 EACH TAB PO PRN (13:47)
--- NOTE | 2019-09-24 15:49 | P.HPIM ---
History of Present Illness H&P Date: 09/24/19 Chief Complaint: Chest pain shortness of breath This is a pleasant 83-year-old lady one of my clinic patients, has underlying history of hyperlipidemia, hypertension, memory impairment, GERD, osteoporosis, and chronic venous thromboembolic pulmonary hypertension diagnosed in 2018, required 6 months of oral eliquis presenting with shortness of breath, difficulty breathing,, thereafter her shortness of breath has improved, CTA of the time was negative, she has secondary pulmonary hypertension and an elevated d-dimer, and intermediate VQ scan. We have attempted to wean her off the eliquis, and was restarted again in 2018, with completion of the 6 month eliquis treatment in August 2019. Her last dose was approximately 4 weeks ago, patient now comes in with shortness of breath, chest pain, cough, shortness of breath with exertion, patient has dysphagia, pleurisy, patient denies any CHF diagnosis in the past no previous history of [place], heart cath none in the past, stress test was 05/06/2019 with no stress induced induced ischemia and elevated ejection fraction, Other imaging noted on 09/15/2019, cervical spine MRI showing spondylolisthesis all throughout see 3TC 7, with moderate disc space narrowing C3-C4 receive through C5-C6 grade 1O's listhesis, with broad-based disc protrusion effacing the ventral a cholestatic with mild to moderate bilateral neural foraminal narrowing on C3-C4 C4-C5 C5-C6 C6-C7. Carotid ultrasound are shows no hemodynamically significant stenosis within the carotid arterial system In the emergency room, d-dimer was 0.73, INR 0.9, calcium 10.3, creatinine 1.0, glucose 104, sodium low at 128, WBC count of 6.7 troponin 0.012, 0.012,, lipase normal 70, influenza A and B is negative, CORRECTIONAL TREATMENT SPECIALIST proBNP is 109 patient was admitted for chest pain, and exertional dyspnea, chest x-ray, CT A for PE, shows negative for pulmonary emboli, borderline cardiomegaly, prominent hiatal hernia, consult with cardiology, patient's ruled out for myocardial infarction, will reques esophagram dysphagia workup as the patient has dysphagia to solid foods, echocardiogram IgE levels, no evidence of CHF at this time, Review of Systems Constitutional: Reports as per HPI, Denies anorexia, Denies chills, Denies c hronic headaches, Denies chronic pain, Denies daytime sleepiness, Denies fatigue, Denies fever, Denies lethargy, Denies malaise, Denies night sweats, Denies poor appetite, Denies sweats, Denies weakness, Denies weight gain, Denies weight loss Ears, nose, mouth and throat: Reports as per HPI, Reports ant. neck pain (Chronic) Cardiovascular: Reports as per HPI, Reports chest pain, Reports dyspnea on exertion Respiratory: Reports as per HPI, Denies congestion, Denies cough, Denies cough with sputum, Denies dyspnea, Denies excessive sputum, Denies hemoptysis, Denies home oxygen, Denies pain, Denies pain on inspiration, Denies pleurisy, Denies respiratory infections, Denies sleep apnea, Denies snoring, Denies wheezing Gastrointestinal: Reports as per HPI, Reports dyspepsia Genitourinary: Reports as per HPI, Denies abnormal vaginal bleeding, Denies decreased libido, Denies difficulty conceiving, Denies difficulty voiding, Denies dysmenorrhea, Denies dyspareunia, Denies dysuria, Denies flank pain, Denies genital sores, Denies hematuria, Denies hot flashes, Denies incomplete emptying, Denies kidney stones, Denies menorrhagia, Denies mixed incontinence, Denies nocturia, Denies pelvic pain, Denies post void dribbling, Denies , Denies prolapse symptoms, Denies stress incontinence, Denies urge incontinence, Denies urgency, Denies urinary frequency, Denies vaginal discharge, Denies vaginal dryness, Denies vaginal itching, Denies vaginal odor Menstruation: Reports as per HPI, Denies amenorrhea, Denies amenorrhea on BC, Denies currently menstrual, Denies cycle < 21 days, Denies cycle > 35 days, Denies cycle variable, Denies menses 1-7 days, Denies menses 8 or > days, Denies menses variable, Denies period heavy, Denies period light, Denies period normal, Denies period spotting, Denies post hysterectomy, Denies postmenopausal, Denies premenarcheal Musculoskeletal: Reports as per HPI Integumentary: Reports as per HPI, Denies acne, Denies boils, Denies brittle nails, Denies change in hair/nails, Denies color changes, Denies darkening of skin, Denies depigmentation, Denies dryness, Denies foot/leg ulcers, Denies growths, Denies hirsutism, Denies lesions, Denies onychomycosis, Denies pruritus, Denies rash, Denies sores, Denies striae, Denies unusual bruising, Denies wounds Neurological: Reports as per HPI, Denies aphasia, Denies ataxia, Denies balance difficulties, Denies burning pain, Denies change in mentation, Denies change in smell/taste, Denies change in speech, Denies confusion, Denies convulsions, Denies double vision, Denies gait dysfunction, Denies head injury, Denies headaches, Denies hearing difficulties, Denies lack of coordination, Denies loss of vision, Denies memory loss, Denies migraines, Denies motor disturbance, Denies numbness, Denies paralysis, Denies paresthesias, Denies seizures, Denies sensory deficit, Denies spasticity, Denies syncope, Denies tic, Denies tingling, Denies transient paralysis, Denies tremors, Denies vertigo, Denies weakness, Denies visual changes Psychiatric: Reports as per HPI, Denies anhedonia, Denies anxiety, Denies anxiety attacks, Denies change in appetite, Denies change in libido, Denies change in sleep habits, Denies confusion, Denies depression, Denies difficulty concentrating, Denies disorientation, Denies hallucinations, Denies hopelessness, Denies hypersomnia, Denies insomnia, Denies irritability, Denies memory loss, Denies mood swings, Denies paranoia, Denies sadness/tearfulness, Denies sleep disturbances, Denies suicidal ideation Endocrine: Reports as per HPI, Denies cold intolerance, Denies deepening of the voice, Denies excessive sweating, Denies excessive thirst, Denies fatigue, Denies flushing, Denies heat intolerance, Denies high blood sugars, Denies increase in ring/shoe/hat size, Denies low blood sugars, Denies nocturia, Denies palpitations, Denies polydipsia, Denies polyphagia, Denies polyuria, Denies proptosis, Denies recent glucocorticoid use, Denies thyroid mass, Denies weight change Hematologic/Lymphatic: Reports as per HPI Allergic/Immunologic: Reports as per HPI, Denies allergic rhinitis, Denies anaphylaxis, Denies angioedema, Denies gluten intolerance, Denies persistent infections, Denies seasonal allergies, Denies urticaria, Denies wheezing Past Medical History Past Medical History: Eye Disorder, GERD/Reflux, Hearing Disorder / Deafness, Hyperlipidemia, Hypertension, Memory Impairment, Osteoarthritis (OA), Pneumonia, Pulmonary Embolus (PE), Thyroid Disorder Additional Past Medical History / Comment(s): Hx pneumonia as a child. MACULAR DEGENERATION. Use of hearing aids. OSTEOPOROSIS. "Blood clots in lungs, December 2017." History of Any Multi-Drug Resistant Organisms: None Reported Past Surgical History: Cholecystectomy, Hernia Repair, Orthopedic Surgery, Tubal Ligation Additional Past Surgical History / Comment(s): Hernia repair X2. RIGHT SHOULDER SURGERY. Right thyroidectomy. Past Anesthesia/Blood Transfusion Reactions: No Reported Reaction Past Psychological History: No Psychological Hx Reported Smoking Status: Former smoker Past Alcohol Use History: Rare Past Drug Use History: None Reported - Past Family History Mother Family Medical History: Cancer Additional Family Medical History / Comment(s): LUNG CANCER. Father Family Medical History: Diabetes Mellitus, Myocardial Infarction ([place]) Medications and Allergies Home Medications Medication Instructions Recorded Confirmed Type Aspirin [Adult Low Dose Aspirin EC] 81 mg PO BID 08/26/18 09/24/19 History Cholecalciferol [Vitamin D3] 2,000 unit PO MOTUWETH 08/26/18 09/24/19 History Cyanocobalamin (Vitamin B-12) 1,000 mcg PO MOWEFR 08/26/18 09/24/19 History [Vitamin B-12] Ferrous Sulfate [Iron (65 MG 325 mg PO HS 08/26/18 09/24/19 History Elemental)] Levothyroxine Sodium [Tirosint] 25 mcg PO QAM 08/26/18 09/24/19 History Pantoprazole Sodium 40 mg PO QAM 08/26/18 09/24/19 History Triamterene/Hydrochlorothiazid 1 tab PO DAILY PRN 08/26/18 09/24/19 History [Triamterene-Hctz 37.5-25 mg Tb] Vit C/E/Zn/Coppr/Lutein/Zeaxan 1 cap PO BID 08/26/18 09/24/19 History [Preservision Areds 2 Softgel] amLODIPine [Norvasc] 2.5 mg PO DAILY 08/26/18 09/24/19 History rOPINIRole HCL [Requip] 0.5 - 1 mg PO HS PRN 08/26/18 09/24/19 History Cholecalciferol [Vitamin D3] 4,000 unit PO SUFRSA 10/13/18 09/24/19 History Simvastatin 10 mg PO HS 10/13/18 09/24/19 History Fluticasone Nasal Niotaze [Flonase 2 spr EA NOSTRIL DAILY PRN 09/24/19 09/24/19 History Nasal Niotaze] HYDROcodone/APAP 7.5-325MG [Cade 1 tab PO TID PRN 09/24/19 09/24/19 History 7.5-325] Nitroglycerin Sl Tabs [Nitrostat] 0.4 mg SUBLINGUAL Q5M PRN 09/24/19 09/24/19 History Allergies Allergy/AdvReac Type Severity Reaction Status Date / Time egg AdvReac Intermediate Unknown Verified 09/24/19 09:20 milk AdvReac Intermediate Diarrhea Verified 09/24/19 09:20 prednisone AdvReac Intermediate Unknown Verified 09/24/19 09:20 corn AdvReac Nausea & Verified 09/24/19 09:20 Vomiting & Diarrhea duloxetine AdvReac Nausea & Verified 09/24/19 09:20 Vomiting & Diarrhea garlic AdvReac Nausea & Verified 09/24/19 09:20 Vomiting & Diarrhea peanut AdvReac Nausea & Verified 09/24/19 09:20 Vomiting & Diarrhea wheat AdvReac Nausea & Verified 09/24/19 09:20 Vomiting & Diarrhea Physical Exam Vitals: Vital Signs Temp Pulse Resp BP Pulse Ox 09/24/19 10:02 67 18 135/85 100 09/24/19 09:01 64 18 134/90 100 09/24/19 08:42 65 16 169/90 100 09/24/19 07:30 64 18 146/78 100 09/24/19 06:39 98.2 F 85 18 182/109 99 Intake and Output 09/24/19 09/24/19 09/24/19 06:59 14:59 22:59 Intake Total 36.271 Balance 36.271 Intake: Intake, IV Titration 36.271 Amount Heparin Sod,Pork in 0.45% 36.271 NaCl 25,000 unit In 0.45 % NaCl 1 250ml.bag @ 12 UNITS/KG/HR 6.477 mls/hr IV .Q24H [facility] Rx#: [id number] Other: Weight 53.977 kg - Constitutional General appearance: cooperative, no acute distress - EENT Eyes: EOMI, PERRLA, dentition normal, normal appearance ENT: NA/AT, normal oropharynx - Neck Neck: normal ROM - Respiratory Respiratory: bilateral: CTA, negative: diminished, dullness, rales, rhonchi, wheezing - Cardiovascular Rhythm: regular Heart sounds: normal: S1, S2 Abnormal Heart Sounds: no systolic murmur, no diastolic murmur, no rub, no S3 Gallop, no S4 Gallop, no click, no other - Gastrointestinal General gastrointestinal: normal bowel sounds, soft - Integumentary Integumentary: decreased turgor, normal - Neurologic Neurologic: CNII-XII intact - Musculoskeletal Musculoskeletal: gait normal, strength equal bilaterally - Psychiatric Psychiatric: A&O x's 3, appropriate affect, intact judgment & insight Results CBC & Chem 7: 09/24/19 07:03 09/24/19 07:03 Labs: Abnormal Lab Results - Last 24 Hours (Table) 09/24/19 09/24/19 09/24/19 Range/Units 07:03 07:03 14:03 APTT 43.7 H (22.0-30.0) sec D-Dimer 0.73 H (<0.60) mg/L FEU Sodium 128 L (137-145) mmol/L Chloride 94 L (98-107) mmol/L Glucose 104 H (74-99) mg/dL Calcium 10.3 H (8.4-10.2) mg/dL Laboratory Results WBC 6.7 k/uL (3.8-10.6) 09/24/19 07:03 RBC 4.34 m/uL (3.80-5.40) 09/24/19 07:03 Hgb 12.5 gm/dL (11.4-16.0) 09/24/19 07:03 Hct 36.8 % (34.0-46.0) 09/24/19 07:03 MCV 84.9 fL (80.0-100.0) 09/24/19 07:03 MCH 28.9 pg (25.0-35.0) 09/24/19 07:03 MCHC 34.0 g/dL (31.0-37.0) 09/24/19 07:03 RDW 12.6 % (11.5-15.5) 09/24/19 07:03 Plt Count 190 k/uL (150-450) 09/24/19 07:03 Neutrophils % 65 % 09/24/19 07:03 Lymphocytes % 25 % 09/24/19 07:03 Monocytes % 5 % 09/24/19 07:03 Eosinophils % 2 % 09/24/19 07:03 Basophils % 1 % 09/24/19 07:03 Neutrophils # 4.4 k/uL (1.3-7.7) 09/24/19 07:03 Lymphocytes # 1.6 k/uL (1.0-4.8) 09/24/19 07:03 Monocytes # 0.3 k/uL (0-1.0) 09/24/19 07:03 Eosinophils # 0.1 k/uL (0-0.7) 09/24/19 07:03 Basophils # 0.0 k/uL (0-0.2) 09/24/19 07:03 PT 9.5 sec (9.0-12.0) 09/24/19 07:03 INR 0.9 (<1.2) 09/24/19 07:03 APTT 43.7 sec (22.0-30.0) H 09/24/19 14:03 D-Dimer 0.73 mg/L FEU (<0.60) H 09/24/19 07:03 Sodium 128 mmol/L (137-145) L 09/24/19 07:03 Potassium 4.6 mmol/L (3.5-5.1) 09/24/19 07:03 Chloride 94 mmol/L (98-107) L 09/24/19 07:03 Carbon Dioxide 22 mmol/L (22-30) 09/24/19 07:03 Anion Gap 12 mmol/L 09/24/19 07:03 BUN 17 mg/dL (7-17) 09/24/19 07:03 Creatinine 1.00 mg/dL (0.52-1.04) 09/24/19 07:03 Est GFR (CKD-EPI)AfAm 61 (>60 ml/min/1.73 sqM) 09/24/19 07:03 Est GFR (CKD-EPI)NonAf 53 (>60 ml/min/1.73 sqM) 09/24/19 07:03 Glucose 104 mg/dL (74-99) H 09/24/19 07:03 Calcium 10.3 mg/dL (8.4-10.2) H 09/24/19 07:03 Magnesium 1.7 mg/dL (1.6-2.3) 09/24/19 07:03 Total Bilirubin 1.0 mg/dL (0.2-1.3) 09/24/19 07:03 AST 33 U/L (14-36) 09/24/19 07:03 ALT 17 U/L (4-34) 09/24/19 07:03 Alkaline Phosphatase 62 U/L (38-126) 09/24/19 07:03 Troponin I <0.012 ng/mL (0.000-0.034) 09/24/19 14:03 NT-Pro-B Natriuret Pep 109 pg/mL 09/24/19 07:03 Total Protein 7.4 g/dL (6.3-8.2) 09/24/19 07:03 Albumin 4.9 g/dL (3.5-5.0) 09/24/19 07:03 Lipase 70 U/L (23-300) 09/24/19 07:03 Influenza Type A RNA Not Detected (Not Detectd) 09/24/19 07:20 Influenza Type B (PCR) Not Detected (Not Detectd) 09/24/19 07:20 Thrombosis Risk Factor Assmnt - DVT/VTE Prophylaxis DVT/VTE Prophylaxis: Low risk, early ambulation encouraged - Choose All That Apply Each Risk Factor Represents 3 Points: Age 75 years or older Thrombosis Risk Factor Assessment Total Risk Factor Score: 3 Thrombosis Risk Factor Assessment Level: Moderate Risk Assessment and Plan Plan: 1. Acute shortness of breath, with prior history of chronic venous thromboembolic pulmonary hypertension, with treatment provided for the past 2 years off and on, last eliquis dose was in August 2019, during this entire treatment patient did not have any shortness breath with exertion, d-dimer slightly elevated during this admission, however her CTA pulmonary tree is negative for PE, we'll going to obtain a VQ scan and an echocardiogram, evaluate for pulmonary hypertension as well as small pulmonary emboli's, IgE to be done, patient would need full PFTs as an outpatient, NT BNP is normal, stress test May 2019 failed to reveal any reversible ischemia, patient currently is on IV heparin on till the VQ scan is done, patient would have a stress test as recommended by cardiology, 2. Cervical disc disease with retrolisthesis, C3-C4 all through C6-C7, on chronic pain medications 3. Hypothyroidism on levothyroxine 25 mg daily 4. Restless leg syndrome, on Requip 1 mg at bedtime when necessary 5. Hyponatremia most likely secondary to Dyazide, continue to monitor, might need to replace these with Lasix and potassium 6. Hypertension and hyperlipidemia, on amlodipine 2.5 mg daily Lipitor 10 mg daily, Maxide daily 7. Known history of mild to moderate tricuspid regurgitation, mitral valve thickening without any prolapse, no aortic stenosis or regurgitation 8. Dysphagia, to solid foods, esophagram to be done, patient might need endoscopic evaluation, could be done as an outpatient 8 GI prophylaxis and DVT prophylaxis
--- NOTE | 2019-09-24 16:31 | ECHOF ---
Referral Reason:Chest pain, dyspnea MEASUREMENTS -------- HEIGHT: 149.9 cm WEIGHT: 54.0 kg BP: 134/90 RVIDd: 2.8 cm (< 3.3) IVSd: 1.1 cm (0.6 - 1.1) LVIDd: 3.3 cm (3.9 - 5.3) LVPWd: 1.1 cm (0.6 - 1.1) IVSs: 1.3 cm LVIDs: 2.2 cm LVPWs: 1.4 cm LA Diam: 2.3 cm (2.7 - 3.8) LAESV Index (A-L): 18.09 ml/m Ao Diam: 2.6 cm (2.0 - 3.7) AV Cusp: 1.7 cm (1.5 - 2.6) MV EXCURSION: 8.590 mm (> 18.000) MV EF SLOPE: 24 mm/s (70 - 150) EPSS: 0.4 cm MV E Manuel: 0.49 m/s MV DecT: 301 ms MV A Manuel: 0.98 m/s MV E/A Ratio: 0.50 RAP: 5.00 mmHg RVSP: 26.36 mmHg FINDINGS -------- Sinus rhythm. This was a technically good study. The left ventricular size is normal. There is borderline concentric left ventricular hypertrophy. Overall left ventricular systolic function is normal with, an EF between 60 - 65 %. The right ventricle is normal in size. Normal LA size by volume 22+/-6 ml/m2. The right atrium is normal in size. Interatrial and interventricular septum intact. The aortic valve is trileaflet and appears structurally normal. The mitral valve leaflets are mildly thickened. Mild mitral annular calcification present. Mild tricuspid regurgitation present. Right ventricular systolic pressure is normal at < 35 mmHg. Trace/mild (physiologic) pulmonic regurgitation. The aortic root size is normal. Normal inferior vena cava with normal inspiratory collapse consistent with estimated right atrial pre ssure of 5 mmHg. There is no pericardial effusion. CONCLUSIONS -------- 1. Sinus rhythm. 2. This was a technically good study. 3. The left ventricular size is normal. 4. There is borderline concentric left ventricular hypertrophy. 5. Overall left ventricular systolic function is normal with, an EF between 60 - 65 %. 6. The right ventricle is normal in size. 7. Normal LA size by volume 22+/-6 ml/m2. 8. The right atrium is normal in size. 9. Interatrial and interventricular septum intact. 10. The aortic valve is trileaflet and appears structurally normal. 11. The mitral valve leaflets are mildly thickened. 12. Mild mitral annular calcification present. 13. Mild tricuspid regurgitation present. 14. Right ventricular systolic pressure is normal at < 35 mmHg. 15. Trace/mild (physiologic) pulmonic regurgitation. 16. The aortic root size is normal. 17. Normal inferior vena cava with normal inspiratory collapse consistent with estimated right atrial pressure of 5 mmHg. 18. There is no pericardial effusion. BILL BOARD POSTER: Shantal Page RDCS
[2019-09-24] MEDS: HYDROcodone/APAP 7.5-325MG 1 EACH TAB PO PRN ×2 (16:35→22:53)
--- NOTE | 2019-09-24 18:47 | NM ---
EXAMINATION TYPE: NM pul perfusion DATE OF EXAM: 09/24/2019 COMPARISON: NONE HISTORY: Pulmonary hypertension. Chronic venous thromboembolism. Following administration of 5.3 mCi Tc 99m MAA. Images obtained post injection. FINDINGS: There is fairly uniform perfusion of both lungs. I see no segmental type defect. There is no subsegme ntal defect. IMPRESSION: Negative exam. There is a very low probability of pulmonary embolism.
[2019-09-24] MEDS: VIT A,C & E-LUTEIN-MINERALS 1 EACH TAB PO SCH (19:54)
[2019-09-24] MEDS ORDERED: FERROUS SULFATE 325 MG TAB PO SCH (21:00)
[2019-09-24] MEDS ORDERED: ATORVASTATIN 10 MG TAB PO SCH (21:00)
[2019-09-24] MEDS ORDERED: NON FORMULARY DRUG (Aspirin [Adult Low Dose Aspirin Ec] 81 MG) PO SCH (21:00)
--- NOTE | 2019-09-24 22:11 | CONS ---
CONSULTATION Madyson is an 83-year-old lady who was admitted to hospital with shortness of breath. She has history of venous thromboembolism and had been evaluated by Cardiology in the past. She used to be on oral anticoagulant that have been stopped in August. She states that she has been becoming progressively short of breath over the last several weeks. An echocardiogram in October of 2018 revealed normal LV systolic function with moderate pulmonary hypertension. She had a negative stress test in April of 2019 with normal myocardial perfusion function. The patient had a CTA of the chest on this admission that is negative for pulmonary embolism. The patient had a perfusion scan of the lungs in November of last year that showed low probability for chronic thromboembolic disease. The patient had a tilt-table test last year that was negative. At the time of my evaluation, patient appears comfortable at rest, hemodynamically stable and in no apparent distress. PAST MEDICAL HISTORY: Significant for hypertension. CURRENT MEDICATIONS: Include Requip, Norvasc, Dyazide, Protonix, [place], Flonase, and aspirin. ALLERGIES: Are as charted and I reviewed them. FAMILY HISTORY: Negative for premature coronary artery disease. SOCIAL HISTORY: Negative for smoking, EtOH abuse, or drug abuse. REVIEW OF SYSTEMS: HEENT is unremarkable. Cardiac as described above. Respiratory as described above. GI negative. Genitourinary negative. Allergy/Immunology: Negative. Skin negative. Musculoskeletal significant for arthritis. Psychosocial negative. Endocrine negative. Derm: Negative. Constitutional: Negative. ONCOLOGICAL: Negative LUNCHROOM AIDE negative. Rest of the system review is not relevant. EXAM: Comfortable at rest. Vital signs are stable. There is no jugular venous distention. Carotid upstroke is normal. There is no bruit. Chest exam reveals good air entry bilaterally. Heart exam reveals first and second heart sounds. No gallop. No murmur. No rub. Abdomen is soft, nontender. Exam of extremities did not reveal edema. Peripheral pulses are felt. Influenza is negative. Creatinine is normal at 1. Troponin is negative. BNP is normal. Hemoglobin is normal. Chest CTA is negative. EKG shows sinus rhythm with poor R-wave progression. Echo results are pending at this time. ASSESSMENT: Shortness of breath, rule out cardiac causes. PLAN: So far, patient does not have pulmonary embolism. Prior V/Q scans were negative. Echocardiogram in the past revealed mild pulmonary hypertension. I am not quite sure if this quite explains her shortness of breath. She is not anemic, does not have renal insufficiency. I will follow the echo results and decide on further course of action. She is on IV heparin. If the patient was on oral anticoagulants and she was benefitting from it, one option we have is to put her back on the oral anticoagulants and stop the heparin with a presumptive diagnosis of venous thromboembolic disease, but so far we have not found any evidence for this. Thank you for letting me participate in the care of this lady. KELVIN / CHARLES: [id number] /
[2019-09-25 00:42] VITALS: RESP 18
[2019-09-25 06:05] LABS: Basophils % (A) 0 %; Eosinophils # (A) 0.1 k/uL (0-0.7); Eosinophils % (A) 3 %; HCT 31.1 % (34.0-46.0); HGB 10.4 gm/dL (11.4-16.0); Lymphocytes # (A) 1.6 k/uL (1.0-4.8); Lymphocytes % (A) 35 %; MCH 28.7 pg (25.0-35.0); MCHC 33.4 g/dL (31.0-37.0); MCV 86.1 fL (80.0-100.0); Mean Platelet Volume 8.9; Monocytes # (A) 0.3 k/uL (0-1.0); Monocytes % (A) 7 %; Neutrophils # (A) 2.3 k/uL (1.3-7.7); Neutrophils % (A) 52 %; Platelet Count 167 k/uL (150-450); RBC 3.61 m/uL (3.80-5.40); RDW 12.9 % (11.5-15.5); WBC 4.5 k/uL (3.8-10.6)
[2019-09-25] MEDS ORDERED: LEVOTHYROXINE 25 MCG TAB PO SCH (06:30)
[2019-09-25 07:21] LABS: Cholesterol 128 mg/dL (<200); HDL Cholesterol 51 mg/dL (40-60); LDL Cholesterol,Calculated 56 mg/dL (0-99); Triglycerides 105 mg/dL (<150)
[2019-09-25] MEDS ORDERED: amLODIPine 2.5 MG TAB PO SCH (09:00)
[2019-09-25] MEDS ORDERED: ASPIRIN 325 MG TAB PO SCH (09:00)
[2019-09-25] MEDS ORDERED: PANTOPRAZOLE 40 MG TABLET PO SCH (09:00)
[2019-09-25] MEDS: VIT A,C & E-LUTEIN-MINERALS 1 EACH TAB PO SCH (09:47)
[2019-09-25 11:19] VITALS: TEMP 98.2
[2019-09-25 12:14] VITALS: BP 138/71; PULSE 66
--- NOTE | 2019-09-25 14:34 | P.PN ---
Subjective Progress Note Date: 09/25/19 This is an 83-year-old female with past medical history of venous thromboembolism. Patient presented to the hospital due to shortness of breath progressive over the last several weeks. Echocardiogram in October 2018 revealed normal LV systolic function and moderate pulmonary hypertension. She had a negative stress test in April 2019 with normal myocardial perfusion function. She had a CTA at that time that was negative for pulmonary embolism. Perfusion scan in the lungs in November 2018 showed low probability chronic thromboembolic disease. She had a tilt table test last year that was negative. Patient presents to the hospital due to shortness of breath. She underwent a VQ scan that showed low probability. Echocardiogram reveals EF of 60-65%, mild tricuspid regurgitation, RVSP less than 35. Patient denies any new complaints. Patient denies having any chest pain or shortness of breath. No lightheadedness or dizziness. Gen: This is an 83-year-old female. Patient is resting in bed and appears to be comfortable and in no acute distress. VS: Afebrile, heart rate 68, blood pressure 137/60, pulse ox 100% on room air. HEENT: Head is atraumatic, normocephalic. Pupils equal, round. Sclerae is anicteric. NECK: Supple. No JVD. No lymphadenopathy. No thyromegaly. LUNGS: Clear to auscultation. No wheezes or rhonchi. No intercostal retractions. HEART: Regular rate and rhythm. No murmur. ABDOMEN: Soft. Bowel sounds are present. No masses. No tenderness. EXTREMITIES: No pedal edema. No calf tenderness. NEUROLOGICAL: Patient is awake, alert and oriented x3. Cranial nerves 2 through 12 are grossly intact. Assessment: Shortness of breath, ruled out cardiac cause Pulmonary embolism ruled out by VQ scan Plan: Patient is cleared for discharge from cardiology Continue current medications Nurse practitioner note has been reviewed, I agree with documented findings and plan of care. Patient was seen and examined. Objective - Vital Signs Vital signs: Vital Signs Temp 98.2 F 09/25/19 08:00 Pulse 68 09/25/19 08:00 Resp 18 09/25/19 08:00 BP 137/68 09/25/19 08:00 Pulse Ox 100 09/25/19 08:00 Intake & Output 09/24/19 09/25/19 09/25/19 18:59 06:59 18:59 Intake Total 36.271 114.406 240 Balance 36.271 114.406 240 Weight 53.977 kg 51.4 kg Intake: Intake, IV Titration 36.271 114.406 Amount Heparin Sod,Pork in 0.45% 36.271 114.406 NaCl 25,000 unit In 0.45 % NaCl 1 250ml.bag @ 12 UNITS/KG/HR 6.477 mls/hr IV .Q24H [facility] Rx#: [id number] Oral 240 Other: Voiding Method Toilet Toilet Toilet # Voids 1 - Exam Gen: This is a [ ] VS: HEENT: Head is atraumatic, normocephalic. Pupils equal, round. Sclerae is anicteric. NECK: Supple. No JVD. No lymphadenopathy. No thyromegaly. LUNGS: Clear to auscultation. No wheezes or rhonchi. No intercostal retractions. HEART: Regular rate and rhythm. No murmur. ABDOMEN: Soft. Bowel sounds are present. No masses. No tenderness. EXTREMITIES: No pedal edema. No calf tenderness. NEUROLOGICAL: Patient is awake, alert and oriented x3. Cranial nerves 2 through 12 are grossly intact. - Labs CBC & Chem 7: 09/25/19 05:19 09/24/19 07:03 Labs: Abnormal Lab Results - Last 24 Hours (Table) 09/24/19 09/25/19 09/25/19 Range/Units 14:03 05:19 05:19 RBC 3.61 L (3.80-5.40) m/uL Hgb 10.4 L (11.4-16.0) gm/dL Hct 31.1 L (34.0-46.0) % APTT 43.7 H 70.7 H (22.0-30.0) sec
--- NOTE | 2019-09-25 14:36 | P.DS ---
Providers Date of admission: 09/24/19 09:08 Expected date of discharge: 09/25/19 Attending physician: Chela Carlin Consults: 09/24/19 09:11 Consult Physician Urgent Consulting Provider: Jose Karimi Consult Reason/Comments: chest pain Do you want consulting provider notified?: Yes Primary care physician: Chela Carlin [place] [facility] Course: This is a pleasant 83-year-old lady one of my clinic patients, has underlying history of hyperlipidemia, hypertension, memory impairment, GERD, osteoporosis, and chronic venous thromboembolic pulmonary hypertension diagnosed in 2017, required 6 months of oral eliquis presenting with shortness of breath, difficulty breathing,, thereafter her shortness of breath has improved, CTA of the time was negative, she has secondary pulmonary hypertension and an elevated d-dimer, and intermediate VQ scan. We have attempted to wean her off the eliquis, and was restarted again in 2018, with completion of the 6 month eliquis treatment in August 2019. Her last dose was approximately 4 weeks ago, patient now comes in with shortness of breath, chest pain, cough, shortness of breath with exertion, patient has dysphagia, pleurisy, patient denies any CHF diagnosis in the past no previous history of FL, heart cath none in the past, stress test was 05/06/2019 with no stress induced induced ischemia and elevated ejection fraction, Other imaging noted on 09/15/2019, cervical spine MRI showing spondylolisthesis all throughout see 3TC 7, with moderate disc space narrowing C3-C4 receive through C5-C6 grade 1O's listhesis, with broad-based disc prot rusion effacing the ventral a cholestatic with mild to moderate bilateral neural foraminal narrowing on C3-C4 C4-C5 C5-C6 C6-C7. Carotid ultrasound are shows no hemodynamically significant stenosis within the carotid arterial system In the emergency room, d-dimer was 0.73, INR 0.9, calcium 10.3, creatinine 1.0, glucose 104, sodium low at 128, WBC count of 6.7 troponin 0.012, 0.012,, lipase normal 70, influenza A and B is negative, [employer] proBNP is 109 patient was admitted for chest pain, and exertional dyspnea, chest x-ray, CT A for PE, shows negative for pulmonary emboli, borderline cardiomegaly, prominent hiatal hernia, consult with cardiology, patient's ruled out for myocardial infarction, will reques esophagram dysphagia workup as the patient has dysphagia to solid foods, echocardiogram IgE levels, no evidence of CHF at this time, 03/25:She underwent a VQ scan that showed low probability. Echocardiogram reveals EF of 60-65%, mild tricuspid regurgitation, RVSP less than 35. Patient denies any new complaints. Patient denies having any chest pain or shortness of breath. No lightheadedness or dizziness. Afebrile, heart rate 68, blood pressure 137/60, pulse ox 100% on room air. Repeat blood work reveals hemoglobin 10.4. Lipid panel normal. Patient will be discharged home today in stable condition. Esophagram will be scheduled as an outpatient. Discharge diagnoses: 1. Acute shortness of breath, with prior history of chronic venous thromboembolic pulmonary hypertension, with treatment provided for the past 2 years off and on, last eliquis dose was in August 2019, during this entire treatment patient did not have any shortness breath with exertion, d-dimer slightly elevated during this admission, however her CTA pulmonary tree is negative for PE, we'll going to obtain a VQ scan and an echocardiogram, evaluate for pulmonary hypertension as well as small pulmonary emboli's, IgE to be done, patient would need full PFTs as an outpatient, NT BNP is normal, stress test May 2019 failed to reveal any reversible ischemia, patient currently is on IV heparin on till the VQ scan is done, patient would have a stress test as recommended by cardiology, 2. Cervical disc disease with retrolisthesis, C3-C4 all through C6-C7, on chronic pain medications 3. Hypothyroidism on levothyroxine 25 mg daily 4. Restless leg syndrome, on Requip 1 mg at bedtime when necessary 5. Hyponatremia most likely secondary to Dyazide, continue to monitor, might need to replace these with Lasix and potassium 6. Hypertension and hyperlipidemia, on amlodipine 2.5 mg daily Lipitor 10 mg daily, Maxide daily 7. Known history of mild to moderate tricuspid regurgitation, mitral valve thickening without any prolapse, no aortic stenosis or regurgitation 8. Dysphagia, to solid foods--outpatient esophagram Discharge plan: Home Impression and plan of care have been directed as dictated by the signing physician. Lise Iqbal nurse practitioner acting as scribe for signing physician., Patient Condition at Discharge: Good Plan - Discharge Summary Discharge Rx Participant: Yes New Discharge Prescriptions: New Loratadine-Pseudoeph 5-120 mg [Claritin-D 12 Hour] 1 tab PO DAILY #30 tab Continue rOPINIRole HCL [Requip] 0.5 - 1 mg PO HS PRN PRN Reason: See Comments Vit C/E/Zn/Coppr/Lutein/Zeaxan [Preservision Areds 2 Softgel] 1 cap PO BID Cyanocobalamin (Vitamin B-12) [Vitamin B-12] 1,000 mcg PO MOWEFR Aspirin [Adult Low Dose Aspirin EC] 81 mg PO BID Ferrous Sulfate [Iron (65 MG Elemental)] 325 mg PO HS amLODIPine [Norvasc] 2.5 mg PO DAILY Levothyroxine Sodium [Tirosint] 25 mcg PO QAM Pantoprazole Sodium 40 mg PO QAM Cholecalciferol [Vitamin D3 (25 Mcg = 1000 Iu)] 2,000 unit PO MOTUWETH Triamterene/Hydrochlorothiazid [Triamterene-Hctz 37.5-25 mg Tb] 1 tab PO DAILY PRN PRN Reason: Edema Simvastatin 10 mg PO HS Cholecalciferol [Vitamin D3 (25 Mcg = 1000 Iu)] 4,000 unit PO SUFRSA Nitroglycerin Sl Tabs [Nitrostat] 0.4 mg SUBLINGUAL Q5M PRN PRN Reason: Chest Pain HYDROcodone/APAP 7.5-325MG [[place] 7.5-325] 1 tab PO TID PRN PRN Reason: Pain Changed Fluticasone Nasal [place] [Flonase Nasal [place]] 2 spr EA NOSTRIL BID #0 Discharge Medication List Aspirin [Adult Low Dose Aspirin EC] 81 mg PO BID 08/26/18 [History] Cholecalciferol [Vitamin D3 (25 Mcg = 1000 Iu)] 2,000 unit PO MOTUWETH 08/26/18 [History] Cyanocobalamin (Vitamin B-12) [Vitamin B-12] 1,000 mcg PO MOWEFR 08/26/18 [History] Ferrous Sulfate [Iron (65 MG Elemental)] 325 mg PO HS 08/26/18 [History] Levothyroxine Sodium [Tirosint] 25 mcg PO QAM 08/26/18 [History] Pantoprazole Sodium 40 mg PO QAM 08/26/18 [History] Triamterene/Hydrochlorothiazid [Triamterene-Hctz 37.5-25 mg Tb] 1 tab PO DAILY PRN 08/26/18 [History] Vit C/E/Zn/Coppr/Lutein/Zeaxan [Preservision Areds 2 Softgel] 1 cap PO BID 08/26/18 [History] amLODIPine [Norvasc] 2.5 mg PO DAILY 08/26/18 [History] rOPINIRole HCL [Requip] 0.5 - 1 mg PO HS PRN 08/26/18 [History] Cholecalciferol [Vitamin D3 (25 Mcg = 1000 Iu)] 4,000 unit PO SUFRSA 10/13/18 [History] Simvastatin 10 mg PO HS 10/13/18 [History] HYDROcodone/APAP 7.5-325MG [[place] 7.5-325] 1 tab PO TID PRN 09/24/19 [History] Nitroglycerin Sl Tabs [Nitrostat] 0.4 mg SUBLINGUAL Q5M PRN 09/24/19 [History] Fluticasone Nasal [place] [Flonase Nasal [place]] 2 spr EA NOSTRIL BID #0 09/25/19 [Rx] Loratadine-Pseudoeph 5-120 mg [Claritin-D 12 Hour] 1 tab PO DAILY #30 tab 09/25/19 [Rx] Follow up Appointment(s)/Referral(s): Chela Carlin MD [Primary Care Provider] - 1 Week Activity/Diet/Wound Care/Special Instructions: Esophagram to be scheduled as Outpatient PLEASE CALL [phone] to schedule appointment Discharge Disposition: HOME SELF-CARE
[2019-09-26] MEDS ORDERED: CHOLECALCIFEROL 1,000 UNIT TAB PO SCH (09:00)
== END 2019-09-25 15:44 | disposition home or self-care (01) | DRG 204 ==
LOC: EC 06:37 → 3SCARD 09:08
PROVIDERS: ADMIT Family Medicine; ATTEND Family Medicine
DX: R06.02 Shortness of breath (principal); E87.1 Hypo-osmolality and hyponatremia; I27.24 Chronic thromboembolic pulmonary hypertension; I07.1 Rheumatic tricuspid insufficiency; G25.81 Restless legs syndrome; I10 Essential (primary) hypertension; E78.5 Hyperlipidemia, unspecified; R13.10 Dysphagia, unspecified; E89.0 Postprocedural hypothyroidism; M50.31 Other cervical disc degeneration, high cervical region; H35.30 Unspecified macular degeneration; H91.90 Unspecified hearing loss, unspecified ear; M81.0 Age-related osteoporosis without current pathological fracture; K21.9 Gastro-esophageal reflux disease without esophagitis; M19.90 Unspecified osteoarthritis, unspecified site; Z79.82 Long term (current) use of aspirin; Z79.890 Hormone replacement therapy; Z79.899 Other long term (current) drug therapy; Z86.718 Personal history of other venous thrombosis and embolism; Z86.711 Personal history of pulmonary embolism; Z90.49 Acquired absence of other specified parts of digestive tract; Z87.891 Personal history of nicotine dependence; Z87.01 Personal history of pneumonia (recurrent); Z98.51 Tubal ligation status; Z91.012 Allergy to eggs; Z91.011 Allergy to milk products; Z91.010 Allergy to peanuts; Z88.8 Allergy status to other drugs, medicaments and biological substances; Z91.018 Allergy to other foods; Z80.1 Family history of malignant neoplasm of trachea, bronchus and lung; Z82.49 Family history of ischemic heart disease and other diseases of the circulatory system; Z83.3 Family history of diabetes mellitus
CPT/HCPCS: 36415; 71046; 71275; 78580; 80053; 80061; 82785; 83690; 83735; 83880; 84484; 85025; 85379; 85610; 85730; 87502; 93005; 93306; 96365; 96375; 96376; 99285

== ENCOUNTER → 2019-09-28 | Outpatient (CLI) | payer MEDICARE, BC ==
--- NOTE | 2019-09-28 11:09 | FL ---
EXAMINATION TYPE: FL barium swallow DATE OF EXAM: 09/28/2019 CLINICAL HISTORY: Prior hiatal hernia repair. Difficulty breathing. Dysphagia. TECHNIQUE: A single contrast esophagram is performed utilizing air and barium. A total of 45 second s of fluoroscopic time was utilized during procedure. 26 fluoroscopic images were saved during the ex amination. COMPARISON: None FINDINGS: The esophagus shows normal motility and emptying into the stomach. No evidence of strictur e noted. There is a recurrent moderate hiatal hernia most evident on supine imaging. No significant g astroesophageal reflux was seen during real time performance of this study. 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 IMPRESSION: 1. Recurrent moderate hiatal hernia. 2. Incidentally noted cricopharyngeal bar.
== END | disposition home or self-care (01) ==
LOC: RADUSWWP 09:49
PROVIDERS: ATTEND Family Medicine
DX: K44.9 Diaphragmatic hernia without obstruction or gangrene (principal); R13.10 Dysphagia, unspecified
CPT/HCPCS: 74220

== ENCOUNTER 2019-10-12 21:00 | Inpatient (IN) | payer MEDICARE, BC ==
--- NOTE | 2019-10-12 21:27 | ED ---
Chest Pain HPI - General Chief Complaint: Chest Pain Stated Complaint: L shoulder pain Time Seen by Provider: 10/12/19 21:08 Source: patient, family, EMS Mode of arrival: EMS Limitations: no limitations - History of Present Illness Initial Comments: This patient is an 83-year-old woman who presents to be evaluated for left chest pain. When I interview the patient, she states that it had come on around 4 PM. The patient had been throwing up with the pain came on. Patient did not recall having an injury to the left shoulder. Patient's also states she was complaining of left chest pain and she does recall this when reminded. Patient states that she took 3 nitroglycerin tablets which did not seem to affect the symptoms. She denies dyspnea, diaphoresis, palpitations, lightheadedness or syncope. MD Complaint: chest pain Onset/Timin -: hour(s) Pain Location: left chest Consistency: now resolved Improves With: nothing Worsens With: nothing Anginal Symptoms: vomiting Treatments Prior to Arrival: nitroglycerin - Related Data Home Medications Medication Instructions Recorded Confirmed Aspirin [Adult Low Dose Aspirin EC] 81 mg PO BID 08/26/18 09/24/19 Cholecalciferol [Vitamin D3 (25 2,000 unit PO MOTUWETH 08/26/18 09/24/19 Mcg = 1000 Iu)] Cyanocobalamin (Vitamin B-12) 1,000 mcg PO MOWEFR 08/26/18 09/24/19 [Vitamin B-12] Ferrous Sulfate [Iron (65 MG 325 mg PO HS 08/26/18 09/24/19 Elemental)] Levothyroxine Sodium [Tirosint] 25 mcg PO QAM 08/26/18 09/24/19 Pantoprazole Sodium 40 mg PO QAM 08/26/18 09/24/19 Triamterene/Hydrochlorothiazid 1 tab PO DAILY PRN 08/26/18 09/24/19 [Triamterene-Hctz 37.5-25 mg Tb] Vit C/E/Zn/Coppr/Lutein/Zeaxan 1 cap PO BID 08/26/18 09/24/19 [Preservision Areds 2 Softgel] amLODIPine [Norvasc] 2.5 mg PO DAILY 08/26/18 09/24/19 rOPINIRole HCL [Requip] 0.5 - 1 mg PO HS PRN 08/26/18 09/24/19 Cholecalciferol [Vitamin D3 (25 4,000 unit PO SUFRSA 10/13/18 09/24/19 Mcg = 1000 Iu)] Simvastatin 10 mg PO HS 10/13/18 09/24/19 HYDROcodone/APAP 7.5-325MG [[place] 1 tab PO TID PRN 09/24/19 09/24/19 7.5-325] Nitroglycerin Sl Tabs [Nitrostat] 0.4 mg SUBLINGUAL Q5M PRN 09/24/19 09/24/19 Previous Rx's Medication Instructions Recorded Fluticasone Nasal [place] [Flonase 2 spr EA NOSTRIL BID #0 09/25/19 Nasal [place]] Loratadine-Pseudoeph 5-120 mg 1 tab PO DAILY #30 tab 09/25/19 [Claritin-D 12 Hour] Allergies Allergy/AdvReac Type Severity Reaction Status Date / Time egg AdvReac Intermediate Unknown Verified 10/12/19 21:12 milk AdvReac Intermediate Diarrhea Verified 10/12/19 21:12 prednisone AdvReac Intermediate Unknown Verified 10/12/19 21:12 corn AdvReac Nausea & Verified 10/12/19 21:12 Vomiting & Diarrhea duloxetine AdvReac Nausea & Verified 10/12/19 21:12 Vomiting & Diarrhea garlic AdvReac Nausea & Verified 10/12/19 21:12 Vomiting & Diarrhea peanut AdvReac Nausea & Verified 10/12/19 21:12 Vomiting & Diarrhea wheat AdvReac Nausea & Verified 10/12/19 21:12 Vomiting & Diarrhea Review of Systems ROS Statement: Those systems with pertinent positive or pertinent negative responses have been documented in the HPI. ROS Other: All systems not noted in ROS Statement are negative. Constitutional: Denies: fever, chills Respiratory: Denies: cough, dyspnea, wheezes Cardiovascular: Reports: as per HPI, chest pain. Denies: palpitations, edema, syncope Gastrointestinal: Reports: nausea, vomiting. Denies: abdominal pain, diarrhea, constipation Genitourinary: Denies: dysuria, hematuria Musculoskeletal: Denies: back pain Skin: Denies: rash Neurological: Denies: headache, weakness, numbness EKG Findings - EKG Results: EKG: interpreted by ERMD, WNL, sinus rhythm (Rate 75 bpm), normal axis, normal QRS, normal ST/T, no acute changes Past Medical History Past Medical History: Eye Disorder, GERD/Reflux, Hearing Disorder / Deafness, Hyperlipidemia, Hypertension, Memory Impairment, Osteoarthritis (OA), Pneumonia, Pulmonary Embolus (PE), Thyroid Disorder Additional Past Medical History / Comment(s): Hx pneumonia as a child. MACULAR DEGENERATION. Use of hearing aids. OSTEOPOROSIS. "Blood clots in lungs, December 2017." History of Any Multi-Drug Resistant Organisms: None Reported Past Surgical History: Cholecystectomy, Hernia Repair, Orthopedic Surgery, Tubal Ligation Additional Past Surgical History / Comment(s): Hernia repair X2. RIGHT SHOULDER SURGERY. Right thyroidectomy. Past Anesthesia/Blood Transfusion Reactions: No Reported Reaction Past Psychological History: No Psychological Hx Reported Smoking Status: Former smoker Past Alcohol Use History: Rare Past Drug Use History: None Reported - Past Family History Mother Family Medical History: Cancer Additional Family Medical History / Comment(s): LUNG CANCER. Father Family Medical History: Diabetes Mellitus, Myocardial Infarction ([place]) General Exam Limitations: no limitations General appearance: alert, in no apparent distress Head exam: Present: atraumatic, normocephalic Eye exam: Present: normal appearance. Absent: scleral icterus, conjunctival injection ENT exam: Present: normal oropharynx Neck exam: Present: normal inspection Respiratory exam: Present: normal lung sounds bilaterally. Absent: respiratory distress, wheezes, rales, rhonchi, stridor Cardiovascular Exam: Present: regular rate, normal rhythm, normal heart sounds. Absent: systolic murmur, diastolic murmur, rubs, gallop GI/Abdominal exam: Present: soft. Absent: distended, tenderness, guarding, rebound, rigid, mass Extremities exam: Present: normal inspection, normal capillary refill. Absent: pedal edema, calf tenderness Back exam: Present: normal inspection. Absent: CVA tenderness (R), CVA tenderness (L) Neurological exam: Present: alert Skin exam: Present: warm, dry, intact, normal color. Absent: rash Course Vital Signs 10/12/19 10/12/19 21:04 22:03 Temperature 98.7 F Pulse Rate 82 77 Respiratory 20 18 Rate Blood Pressure 169/108 117/90 O2 Sat by Pulse 100 97 Oximetry Disposition Clinical Impression: Hyponatremia, Chest pain Disposition: ADMITTED IP TO THIS HOSP Condition: Poor Is patient prescribed a controlled substance at d/c from ED?: No Referrals: Chela Carlin MD [Primary Care Provider] - 1-2 days
[2019-10-12 21:49] LABS: Albumin 4.9 g/dL (3.5-5.0); Calcium 10.1 mg/dL (8.4-10.2); Magnesium 1.5 mg/dL (1.6-2.3); Potassium 3.8 mmol/L (3.5-5.1); Total Bilirubin 0.7 mg/dL (0.2-1.3); Total Protein 7.1 g/dL (6.3-8.2)
--- NOTE | 2019-10-12 21:56 | XR ---
EXAMINATION TYPE: XR chest 2V DATE OF EXAM: 10/12/2019 COMPARISON: NONE HISTORY: Short of breath and cough TECHNIQUE: FINDINGS: Heart is normal. Lungs are clear of infiltrate. There is no pleural effusion. Thoracic aort a is atheromatous. There are chest leads. There is mild spurring in the thoracic spine. There is no c ompression fracture. IMPRESSION: No active cardiopulmonary disease. Normal heart.
--- NOTE | 2019-10-12 21:58 | XR ---
EXAMINATION TYPE: XR shoulder complete LT DATE OF EXAM: 10/12/2019 COMPARISON: NONE HISTORY: Shoulder pain TECHNIQUE: 3 views FINDINGS: I see no fracture nor dislocation. There is minor spurring at the glenohumeral joint. There is spurring at the AC joint. This calcification at the greater tuberosity of the humerus. IMPRESSION: Mild osteoarthritis. Calcific tendinitis. No fracture seen.
[2019-10-12 22:00] LABS: INR 0.9 (<1.2); Prothrombin Time 9.8 sec (9.0-12.0)
[2019-10-12 22:02] LABS: Partial Thromboplastin Time 21.7 sec (22.0-30.0)
[2019-10-12 22:03] LABS: Basophils % (A) 0 %; Eosinophils % (A) 0 %; HCT 34.5 % (34.0-46.0); HGB 12.3 gm/dL (11.4-16.0); Hyperchromasia Slight; Lymphocytes % (A) 11 %; MCH 28.9 pg (25.0-35.0); MCHC 35.7 g/dL (31.0-37.0); Mean Platelet Volume 8.5; Monocytes # (A) 0.3 k/uL (0-1.0); Monocytes % (A) 4 %; Neutrophils # (A) 7.5 k/uL (1.3-7.7); Neutrophils % (A) 83 %; Platelet Count 244 k/uL (150-450); RBC 4.27 m/uL (3.80-5.40); RDW 12.2 % (11.5-15.5); WBC 9.1 k/uL (3.8-10.6)
[2019-10-12 22:05] LABS: MCV 80.9 fL (80.0-100.0)
[2019-10-12] MEDS ORDERED: SODIUM CHLORIDE 0.9% 500 ML 500 ML IV STA (22:27)
[2019-10-12] MEDS ORDERED: NALOXONE 0.4 MG/ML 1 ML VIAL IV PRN (22:38)
[2019-10-12] MEDS ORDERED: ACETAMINOPHEN TAB 325 MG TAB PO PRN (22:38)
[2019-10-12] MEDS ORDERED: NITROGLYCERIN SL TABS 0.4 MG TAB SUBLINGUAL PRN (22:41)
[2019-10-12 22:54] LABS: Creatinine,Urine Random 33.3 mg/dL
[2019-10-12] MEDS: SODIUM CHLORIDE 0.9% 1,000 ML IV SCH (23:40)
[2019-10-13] MEDS ORDERED: LEVOTHYROXINE 50 MCG TAB PO SCH (06:30)
[2019-10-13] MEDS ORDERED: Magnesium Replacement Protocol 1 EACH MISC MISCELLANE PRN (06:33)
[2019-10-13] MEDS ORDERED: BENZOCAINE/MENTHOL LOZENG 1 EACH LOZENGE MUCOUS MEM PRN (06:35)
[2019-10-13 06:38] LABS: Basophils % (A) 0 %; Eosinophils % (A) 1 %; HCT 30.9 % (34.0-46.0); HGB 10.9 gm/dL (11.4-16.0); Lymphocytes # (A) 1.4 k/uL (1.0-4.8); Lymphocytes % (A) 17 %; MCH 29.1 pg (25.0-35.0); MCHC 35.4 g/dL (31.0-37.0); MCV 82.3 fL (80.0-100.0); Mean Platelet Volume 8.7; Monocytes # (A) 0.5 k/uL (0-1.0); Monocytes % (A) 6 %; Neutrophils % (A) 75 %; Platelet Count 202 k/uL (150-450); RBC 3.76 m/uL (3.80-5.40)
[2019-10-13] MEDS: LEVOTHYROXINE 25 MCG TAB PO SCH (06:43)
[2019-10-13] MEDS: MAGNESIUM SULFATE-D5W PMX 1 GM in DEXTROSE/WATER 1 100ML.BAG IVPB SCH ×2 (06:45→08:41)
[2019-10-13 06:46] LABS: Albumin 3.9 g/dL (3.5-5.0); Calcium 9.1 mg/dL (8.4-10.2); Potassium 3.4 mmol/L (3.5-5.1); Total Bilirubin 0.6 mg/dL (0.2-1.3)
[2019-10-13] MEDS: PANTOPRAZOLE 40 MG TABLET PO SCH (08:42)
[2019-10-13] MEDS: amLODIPine 5 MG TAB PO SCH (08:42)
[2019-10-13] MEDS: ASPIRIN 81 MG PO SCH ×2 (08:42→20:15)
[2019-10-13] MEDS: CHOLECALCIFEROL 1,000 UNIT TAB PO SCH (08:42)
[2019-10-13] MEDS: SODIUM CHLORIDE 0.9% 1,000 ML IV SCH (08:45)
[2019-10-13] MEDS ORDERED: ASPIRIN 81 MG PO SCH (09:00)
--- NOTE | 2019-10-13 13:30 | P.HPIM ---
History of Present Illness H&P Date: 10/13/19 Chief Complaint: Left shoulder pain This is an 83-year-old female patient of Dr. Carlin with past medical history of hypertension, hyperlipidemia, gastroesophageal reflux disease, hypothyroidism, macular degeneration, osteoporosis, PE December 2017. Patient had a recent hospitalization September 24 through September 25 for acute shortness of breath with negative CTA, hyponatremia secondary to Dyazide. Patient states that she developed left shoulder pains that were sharp. She denies any chest pain, no shortness of breath. She denies any history of COPD of emphysema. She does not utilize nebulizer or oxygen. She complains of a sore throat and mild hoarseness. She has had some weight loss since recently hospitalized of 7 pounds. Patient utilizes Dyazide at home on an as-needed basis for lower extremity edema. Patient states that she has not been urinating very much. She states she has been constipated but did have a bowel movement today. She does have chronic memory trouble. She denies any recent syncopal episodes. She lives at home with her . Patient presented to [facility] emergency center for evaluation. Initial blood pressure 169/108, afebrile, heart rate 82, pulse ox 100% on room air. CBC unremarkable, sodium 118, potassium 3.8, chloride 78, CO2 26, BUN 19 creatinine 0.98, glucose 115, osmolality 249, magnesium 1.5, AST 40, troponin negative, TSH 1.380. Urine osmolality 204, urine creatinine 33.3, urine sodium 23, potassium 26. Group A strep rapid screen is negative. Patient was placed on the cardiac stepdown unit and consult with nephrology. Repeat blood work this morning reveals sodium of 124, potassium 3.4 and chloride 88, CO2 26. Review of Systems Constitutional: Reports fatigue, Reports weakness, Reports weight loss, Denies chills, Denies fever Eyes: denies blurred vision, denies pain Ears, nose, mouth and throat: Reports dysphagia, Reports sore throat, Denies epistaxis, Denies nasal congestion Cardiovascular: Denies chest pain, Denies edema, Denies leg edema, Denies lightheadedness, Denies syncope Respiratory: Denies cough, Denies cough with sputum, Denies excessive sputum, Denies hemoptysis, Denies home oxygen Gastrointestinal: Reports constipation, Reports loss of appetite, Denies abdominal pain, Denies diarrhea, Denies nausea, Denies vomiting Genitourinary: Denies dysuria, Denies hematuria, Denies urgency, Denies urinary frequency Musculoskeletal: Reports muscle weakness, Denies frequent falls, Denies myalgias Integumentary: Denies pruritus, Denies rash, Denies wounds Neurological: Denies change in mentation, Denies change in speech, Denies numbness, Denies seizures, Denies weakness Psychiatric: Denies anxiety, Denies depression Endocrine: Denies fatigue, Denies weight change Past Medical History Past Medical History: Eye Disorder, GERD/Reflux, Hearing Disorder / Deafness, Hyperlipidemia, Hypertension, Memory Impairment, Osteoarthritis (OA), Pneumonia, Pulmonary Embolus (PE), Thyroid Disorder Additional Past Medical History / Comment(s): Hx pneumonia as a child. MACULAR DEGENERATION. Use of hearing aids. OSTEOPOROSIS. "Blood clots in lungs, December 2017." History of Any Multi-Drug Resistant Organisms: None Reported Past Surgical History: Cholecystectomy, Hernia Repair, Orthopedic Surgery, Tubal Ligation Additional Past Surgical History / Comment(s): Hernia repair X2. RIGHT SHOULDER SURGERY. Right thyroidectomy. Past Anesthesia/Blood Transfusion Reactions: No Reported Reaction Past Psychological History: No Psychological Hx Reported Smoking Status: Never smoker Past Alcohol Use History: Rare Additional Past Alcohol Use History / Comment(s): Patient smoked briefly only while she was in school. She drinks alcohol about 2 times per year. She lives at home with her . She does not utilize CPAP, oxygen, nebulizer. 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 Past Drug Use History: None Reported - Past Family History Mother Family Medical History: Cancer Additional Family Medical History / Comment(s): Mother at age 90 from lung cancer, nonsmoker. Father Family Medical History: Diabetes Mellitus, Myocardial Infarction (DC) Additional Family Medical History / Comment(s): Father at age 82 from myocardial infarction. Brother(s) Additional Family Medical History / Comment(s): Patient has 1 brother and he lives in [place]. He has some type of cancer patient does not know details. Sister(s) Additional Family Medical History / Comment(s): Patient has 2 sisters living with no major medical problems. Patient has one sister that from COPD. Patient has 4 children with no major medical problems. Medications and Allergies Home Medications Medication Instructions Recorded Confirmed Type Cholecalciferol [Vitamin D3 (25 2,000 unit PO MOTUWETH 08/26/18 10/12/19 History Mcg = 1000 Iu)] Cyanocobalamin (Vitamin B-12) 1,000 mcg PO MOWEFR 08/26/18 10/12/19 History [Vitamin B-12] Ferrous Sulfate [Iron (65 MG 325 mg PO Q48H 08/26/18 10/12/19 History Elemental)] Pantoprazole Sodium 40 mg PO DAILY 08/26/18 10/12/19 History Vit C/E/Zn/Coppr/Lutein/Zeaxan 1 cap PO BID 08/26/18 10/12/19 History [Preservision Areds 2 Softgel] amLODIPine [Norvasc] 2.5 mg PO HS 08/26/18 10/12/19 History rOPINIRole HCL [Requip] 0.5 - 1 mg PO HS PRN 08/26/18 10/12/19 History Cholecalciferol [Vitamin D3 (25 4,000 unit PO SUFRSA 10/13/18 10/12/19 History Mcg = 1000 Iu)] HYDROcodone/APAP 7.5-325MG [Vidalia 1 tab PO TID PRN 09/24/19 10/12/19 History 7.5-325] Nitroglycerin Sl Tabs [Nitrostat] 0.4 mg SUBLINGUAL Q5M PRN 09/24/19 10/12/19 History Loratadine-Pseudoeph 5-120 mg 1 tab PO DAILY #30 tab 09/25/19 10/12/19 Rx [Claritin-D 12 Hour] Aspirin 162 mg PO BID 10/12/19 10/12/19 History Fluticasone Nasal [place] [Flonase 2 sprays EA NOSTRIL BID 10/12/19 10/12/19 History Nasal [place]] Levothyroxine Sodium 25 mcg PO DAILY 10/12/19 10/12/19 History Simvastatin [Zocor] 10 mg PO HS 10/12/19 10/12/19 History Triamterene-Hctz 37.5-25Mg 1 cap PO DAILY PRN 10/12/19 10/12/19 History [Dyazide 37.5-25 Capsule] Allergies Allergy/AdvReac Type Severity Reaction Status Date / Time egg AdvReac Intermediate Unknown Verified 10/12/19 23:10 milk AdvReac Intermediate Diarrhea Verified 10/12/19 23:10 prednisone AdvReac Intermediate Unknown Verified 10/12/19 23:10 corn AdvReac Nausea & Verified 10/12/19 23:10 Vomiting & Diarrhea duloxetine AdvReac Nausea & Verified 10/12/19 23:10 Vomiting & Diarrhea garlic AdvReac Nausea & Verified 10/12/19 23:10 Vomiting & Diarrhea peanut AdvReac Nausea & Verified 10/12/19 23:10 Vomiting & Diarrhea wheat AdvReac Nausea & Verified 10/12/19 23:10 Vomiting & Diarrhea Physical Exam Vitals: Vital Signs Temp Pulse Pulse Resp BP BP Pulse Ox 10/13/19 08:00 98.5 F 77 18 138/68 98 10/13/19 04:00 98.3 F 80 16 132/61 98 10/13/19 00:00 98.7 F 83 18 161/77 98 10/12/19 23:52 93 L 10/12/19 23:00 98.6 F 71 16 117/82 98 10/12/19 22:03 77 18 117/90 97 10/12/19 21:04 98.7 F 82 20 169/108 100 Intake and Output 10/12/19 10/13/19 10/13/19 22:59 06:59 14:59 Intake Total 358 Output Total 800 Balance -800 358 Intake: Oral 358 Output: Urine 800 Other: # Voids 1 Weight 51.256 kg 48.2 kg Gen: This is a frail-appearing 83-year-old female. Patient is resting in bed sleeping and awakens easily to verbal stimuli. HEENT: Head is atraumatic, normocephalic. Pupils equal, round. Sclerae is anicteric. Patient is significantly hard of hearing. NECK: Supple. No JVD. No lymphadenopathy. No thyromegaly. LUNGS: Clear to auscultation. No wheezes or rhonchi. No intercostal retractions. HEART: Regular rate and rhythm. No murmur. ABDOMEN: Soft. Bowel sounds are present. No masses. No tenderness. EXTREMITIES: No pedal edema. No calf tenderness. NEUROLOGICAL: Patient is awake, alert and oriented x3. Cranial nerves 2 through 12 are grossly intact. Results CBC & Chem 7: 10/13/19 06:01 10/13/19 06:01 Labs: Abnormal Lab Results - Last 24 Hours (Table) 10/12/19 10/12/19 10/12/19 Range/Units 21:18 21:18 21:18 RBC (3.80-5.40) m/uL Hgb (11.4-16.0) gm/dL Hct (34.0-46.0) % APTT 21.7 L (22.0-30.0) sec Sodium 118 L* (137-145) mmol/L Potassium (3.5-5.1) mmol/L Chloride 78 L (98-107) mmol/L BUN 19 H (7-17) mg/dL Glucose 115 H (74-99) mg/dL Osmolality 249 L* (280-301) mosm/kg Magnesium 1.5 L (1.6-2.3) mg/dL AST 40 H (14-36) U/L Total Protein (6.3-8.2) g/dL 10/13/19 10/13/19 Range/Units 06:01 06:01 RBC 3.76 L (3.80-5.40) m/uL Hgb 10.9 L (11.4-16.0) gm/dL Hct 30.9 L (34.0-46.0) % APTT (22.0-30.0) sec Sodium 124 L (137-145) mmol/L Potassium 3.4 L (3.5-5.1) mmol/L Chloride 88 L (98-107) mmol/L BUN (7-17) mg/dL Glucose (74-99) mg/dL Osmolality (280-301) mosm/kg Magnesium (1.6-2.3) mg/dL AST (14-36) U/L Total Protein 6.0 L (6.3-8.2) g/dL Microbiology - Last 24 Hours (Table) 10/12/19 23:20 Group A Strep Throat Culture - Preliminary Throat Thrombosis Risk Factor Assmnt - DVT/VTE Prophylaxis DVT/VTE Prophylaxis: Pharmacologic Prophylaxis ordered - Choose All That Apply Each Risk Factor Represents 3 Points: Age 75 years or older Thrombosis Risk Factor Assessment Total Risk Factor Score: 3 Thrombosis Risk Factor Assessment Level: Moderate Risk Assessment and Plan Plan: 1. Hyponatremia. Patient is currently on IV fluids. Recheck sodium this afternoon and in the morning. Consult with nephrology 2. Left shoulder pain most likely secondary to osteoarthritis. Patient denies having chest pain. 3. Recent hospitalization for shortness of breath with negative CTA followed by a negative VQ scan for PE. 4. Hypertension. Continue amlodipine 2.5 mg daily. 5. Hyperlipidemia. Continue atorvastatin 10 mg at bedtime. 6. Hypothyroidism. Continue levothyroxine at current dose. 7. Cervical disc disease with retrolisthesis, stable. Continue Vidalia as needed for pain. 8. History of dysphagia to solid foods. 9. Sore throat with negative strep screen. Cepacol lozenges. 10. DVT prophylaxis. Heparin subcu. Patient will be admitted to the hospital for a minimum of 2 night stay. Discharge plan: To be determined. PT and OT added. Impression and plan of care have been directed as dictated by the signing physician. Lise Iqbal nurse practitioner acting as scribe for signing physician.
[2019-10-13 15:25] LABS: Calcium 9.2 mg/dL (8.4-10.2); Potassium 3.4 mmol/L (3.5-5.1)
[2019-10-13] MEDS ORDERED: FUROSEMIDE 10 MG/ML 2 ML VIAL IV ONE (15:28)
[2019-10-13] MEDS: FLUTICASONE 50MCG/SPRAY NASAL 16GM EA NOSTRIL SCH ×2 (15:41→20:15)
[2019-10-13] MEDS: HYDROcodone/APAP 7.5-325MG 1 EACH TAB PO PRN ×2 (15:45→22:51)
[2019-10-13] MEDS: IPRATROPIUM-ALBUTEROL 3 ML NEB INHALATION SCH ×2 (16:22→20:33)
[2019-10-13] MEDS: HEPARIN SODIUM,PORCINE 5,000 UNIT/ML 1 ML VIAL SQ SCH (20:15)
[2019-10-13] MEDS: ATORVASTATIN 10 MG TAB PO SCH (20:15)
[2019-10-13] MEDS: FERROUS SULFATE 325 MG TAB PO SCH (20:15)
[2019-10-13] MEDS ORDERED: SIMVASTATIN 10 MG PO SCH (21:00)
[2019-10-13] MEDS ORDERED: POTASSIUM CHLORIDE ER 20 MEQ TAB.ER PO STA (21:50)
--- NOTE | 2019-10-13 23:14 | CONS ---
CONSULTATION REASON FOR CONSULT: Hyponatremia. HISTORY OF PRESENT ILLNESS: Patient is an 83-year-old female who was admitted to the hospital yesterday with a history of shortness of breath and left shoulder pain. Patient has not been eating much over the past few days, as she did have some sore throat. Patient is maintained on Dyazide at home, but she states that she has not been taking it regularly. At this time not able to get a detailed history from the patient. She denies any previous history of hyponatremia. Serum sodium on admission was 118 mEq/L yesterday. It was up to 124 this morning and then 125 at about 3 p.m. today. Overall patient states she feels slightly better. Urine osmolality was 204. Blood pressure has been slightly on the lower side more recently, but previously it was not low; in fact on the higher side. Patient is off of thiazide diuretics currently. Patient was maintained on normal saline; however, it appears that later on today she got a dose of IV Lasix and her fluids are now discontinued. PAST MEDICAL HISTORY: Hypertension, gastroesophageal reflux disease, hearing disorder, hyperlipidemia, dementia, pneumonia, history of PE, hypothyroidism, macular degeneration, osteoporosis. PAST SURGICAL HISTORY: Cholecystectomy, hernia repair, tubal ligation, right shoulder surgery, right thyroidectomy. SOCIAL HISTORY: Negative for smoking, drug abuse or alcohol abuse. MEDICATIONS: Medications at home prior to admission included vitamin D3, vitamin B12, pantoprazole, Norvasc, Requip, Claritin, Synthroid, Zocor, Dyazide. ALLERGIES: MULTIPLE, INCLUDING EGG, MILK, PREDNISONE, CORN, DULOXETINE, GARLIC, PEANUT, WHEAT. REVIEW OF SYSTEMS: As per HPI. PHYSICAL EXAMINATION: On examination, patient is currently comfortable, awake, not in any acute distress. Blood pressure this afternoon was 105/58, heart rate of 80 per minute. Patient is afebrile. EXAMINATION OF THE HEART: S1 and S2. EXAMINATION OF LUNGS: Bilateral breath sounds are heard. ABDOMEN: Soft, non-tender. Examination of lower extremities shows no significant edema. STITCH MARKER exam is grossly intact. LABS: Sodium of 125 this evening. Yesterday it was 118. Potassium 3.4, BUN 14, serum creatinine 0.89. Hemoglobin was 10.9 g/dL. ASSESSMENT: 1. Hyponatremia; appears to be hypovolemic and improved with normal saline. It looks like saline has now been discontinued and patient also received a dose of IV Lasix. Therefore she may have had an element of hypervolemia sometime this evening. We can maintain her off of normal saline for now and repeat labs in a.m. I will check a chest x-ray as well in a.m. Patient is encouraged to increase her oral protein intake. TSH was not elevated. A serum cortisol level will be ordered as well. Review of previous labs shows no prior history of hyponatremia, although we do have a serum sodium of 128 on 09/24/2019, but prior to that it was around 140. Patient should stay off of the thiazide diuretics at home and she can use loop diuretics for volume overload. 2. Hypokalemia secondary to poor oral intake and use of thiazide diuretics prior to admission. Will replace. Do not see any supplementation. 3. Hypertension; blood pressure not significantly elevated. Continue current antihypertensive regimen. PLAN: Continue off of saline for now, as it was discontinued later on this evening. Check chest x-ray in a.m. Replace potassium and check serum cortisol level. Thank you for this consultation. Will continue to follow the patient with you during her hospitalization. MMODL / IJN: [id number] /
[2019-10-14 06:24] LABS: Calcium 9.6 mg/dL (8.4-10.2); Potassium 3.9 mmol/L (3.5-5.1)
[2019-10-14] MEDS: LEVOTHYROXINE 25 MCG TAB PO SCH (06:25)
--- NOTE | 2019-10-14 07:50 | XR ---
EXAMINATION TYPE: XR chest 1V DATE OF EXAM: 10/14/2019 COMPARISON: Prior chest x-ray 10/12/2019 HISTORY: Congestive heart failure TECHNIQUE: Single frontal view of the chest is obtained. FINDINGS: There is no significant interval change. Patient is rotated. There are overlying cardiac l francisco j. Aorta is dense. Heart size within normal limits. No airspace disease, pneumothorax, or pleural effusion. IMPRESSION: Stable exam, no acute cardiopulmonary disease.
[2019-10-14] MEDS: HEPARIN SODIUM,PORCINE 5,000 UNIT/ML 1 ML VIAL SQ SCH ×2 (07:58→21:42)
[2019-10-14] MEDS: ASPIRIN 81 MG PO SCH ×2 (07:58→21:43)
[2019-10-14] MEDS: PANTOPRAZOLE 40 MG TABLET PO SCH (07:59)
[2019-10-14] MEDS: FLUTICASONE 50MCG/SPRAY NASAL 16GM EA NOSTRIL SCH ×2 (07:59→21:44)
[2019-10-14] MEDS: CYANOCOBALAMIN 500 MCG TAB PO SCH (07:59)
[2019-10-14] MEDS: CHOLECALCIFEROL 1,000 UNIT TAB PO SCH (07:59)
[2019-10-14] MEDS: amLODIPine 5 MG TAB PO SCH (07:59)
[2019-10-14] MEDS: IPRATROPIUM-ALBUTEROL 3 ML NEB INHALATION SCH ×4 (08:37→20:12)
[2019-10-14] MEDS ORDERED: FUROSEMIDE 10 MG/ML 4 ML VIAL IV STA (10:55)
--- NOTE | 2019-10-14 11:39 | P.PN ---
Subjective Progress Note Date: 10/14/19 This is an 83-year-old female patient of Dr. Carlin with past medical history of hypertension, hyperlipidemia, gastroesophageal reflux disease, hypothyroidism, macular degeneration, osteoporosis, PE December 2017. Patient had a recent hospitalization September 24 through September 25 for acute shortness of breath with negative CTA, hyponatremia secondary to Dyazide. Patient states that she developed left shoulder pains that were sharp. She denies any chest pain, no shortness of breath. She denies any history of COPD of emphysema. She does not utilize nebulizer or oxygen. She complains of a sore throat and mild hoarseness. She has had some weight loss since recently hospitalized of 7 pounds. Patient utilizes Dyazide at home on an as-needed basis for lower extremity edema. Patient states that she has not been urinating very much. She states she has been constipated but did have a bowel movement today. She does have chronic memory trouble. She denies any recent syncopal episodes. She lives at home with her . Patient presented to [facility] emergency center for evaluation. Initial blood pressure 169/108, afebrile, heart rate 82, pulse ox 100% on room air. CBC unremarkable, sodium 118, potassium 3.8, chloride 78, CO2 26, BUN 19 creatinine 0.98, glucose 115, osmolality 249, magnesium 1.5, AST 40, troponin negative, TSH 1.380. Urine osmolality 204, urine creatinine 33.3, urine sodium 23, potassium 26. Group A strep rapid screen is negative. Patient was placed on the cardiac stepdown unit and consult with nephrology. Repeat blood work this morning reveals sodium of 124, potassium 3.4 and chloride 88, CO2 26. 28: Yesterday afternoon, patient was complaining of shortness of breath and IV fluids were discontinued and patient given 1 dose of IV Lasix 20 mg. Patient continues to have coughing that seems to be causing her shortness of breath. Saline lock remains in place. We did order a second dose of Lasix 40 mg this morning. Chest x-ray showed no acute cardiopulmonary disease. Pulse ox is 100% on room air. Heart rate 72, blood pressure 109/62, afebrile. Sodium today is at 127. Patient is followed by nephrology. Patient is worked with physical therapy and recommendations for home. Anticipate patient will be ready for discharge tomorrow. Objective - Vital Signs Vital signs: Vital Signs Temp 97.5 F L 10/14/19 08:00 Pulse 72 10/14/19 08:00 Resp 18 10/14/19 08:00 BP 109/62 10/14/19 08:00 Pulse Ox 100 10/14/19 08:00 Intake & Output 10/13/19 10/14/19 10/14/19 18:59 06:59 18:59 Intake Total 838 400 360 Output Total 325 200 Balance 838 75 160 Weight 47.7 kg Intake: Oral 838 400 360 Output: Urine 325 200 Other: # Voids 5 1 # Bowel Movements 4 1 - Exam Review of Systems Constitutional: Reports fatigue, Reports weakness, Reports weight loss, Denies chills, Denies fever Eyes: denies blurred vision, denies pain Ears, nose, mouth and throat: Reports dysphagia, Reports sore throat, Denies epistaxis, Denies nasal congestion Cardiovascular: Denies chest pain, Denies edema, Denies leg edema, Denies lightheadedness, Denies syncope Respiratory: Reports cough, denies cough with sputum, Denies excessive sputum, Denies hemoptysis, Denies home oxygen Gastrointestinal: Reports constipation, Reports loss of appetite, Denies abdominal pain, Denies diarrhea, Denies nausea, Denies vomiting Genitourinary: Denies dysuria, Denies hematuria, Denies urgency, Denies urinary frequency Musculoskeletal: Reports muscle weakness, Denies frequent falls, Denies myalgias Integumentary: Denies pruritus, Denies rash, Denies wounds Neurological: Denies change in mentation, Denies change in speech, Denies numbness, Denies seizures, Denies weakness Psychiatric: Denies anxiety, Denies depression Endocrine: Denies fatigue, Denies weight change Physical exam Gen: This is a frail-appearing 83-year-old female. Patient is resting in bed sleeping and awakens easily to verbal stimuli. is at bedside. HEENT: Head is atraumatic, normocephalic. Pupils equal, round. Sclerae is anicteric. Patient is significantly hard of hearing. NECK: Supple. No JVD. No lymphadenopathy. No thyromegaly. LUNGS: Slightly diminished in the bases. No intercostal retractions. HEART: Regular rate and rhythm. No murmur. ABDOMEN: Soft. Bowel sounds are present. No masses. No tenderness. EXTREMITIES: No pedal edema. No calf tenderness. NEUROLOGICAL: Patient is awake, alert and oriented x3. Cranial nerves 2 through 12 are grossly intact. - Labs CBC & Chem 7: 10/13/19 06:01 10/14/19 05:37 Labs: Abnormal Lab Results - Last 24 Hours (Table) 10/13/19 10/14/19 Range/Units 14:52 05:37 Sodium 125 L 127 L (137-145) mmol/L Potassium 3.4 L (3.5-5.1) mmol/L Chloride 89 L 91 L (98-107) mmol/L Microbiology - Last 24 Hours (Table) 10/12/19 23:20 Group A Strep Throat Culture - Preliminary Throat Assessment and Plan Plan: 1. Hyponatremia. IV fluids discontinued. Recheck in the morning. Consult with nephrology appreciated. 2. Left shoulder pain most likely secondary to osteoarthritis. Patient denies having chest pain. 3. Recent hospitalization for shortness of breath with negative CTA followed by a negative VQ scan for PE. 4. Hypertension. Continue amlodipine 2.5 mg daily. 5. Hyperlipidemia. Continue atorvastatin 10 mg at bedtime. 6. Hypothyroidism. Continue levothyroxine at current dose. 7. Cervical disc disease with retrolisthesis, stable. Continue [place] as needed for pain. 8. History of dysphagia to solid foods. 9. Sore throat with negative strep screen. Cepacol lozenges. 10. DVT prophylaxis. Heparin subcu. 11. Cough with shortness of breath most likely due to tracheobronchitis. Chest x-ray negative. Discharge plan: Home without home care most likely on Thursday. Impression and plan of care have been directed as dictated by the signing physician. Lise Iqbal nurse practitioner acting as scribe for signing physician.
[2019-10-14 14:06] VITALS: BMI 21.2
[2019-10-14] MEDS: HYDROcodone/APAP 7.5-325MG 1 EACH TAB PO PRN ×2 (16:17→21:42)
--- NOTE | 2019-10-14 16:27 | PN ---
PROGRESS NOTE Patient is seen for followup for hyponatremia which was hypovolemic initially. However, patient developed volume overload yesterday and she received one dose of IV Lasix and IV fluids were discontinued. She states she is feeling better. Her breathing has improved. Serum sodium is up to 127 today. PHYSICAL EXAMINATION: On examination, blood pressure was 123/84, heart rate 72 per minute. Patient is afebrile. EXAMINATION OF THE HEART: S1 and S2. EXAMINATION OF LUNGS: Bilateral breath sounds are heard. ABDOMEN: Soft, non-tender. Examination of lower extremities shows no evidence of edema. [employer] exam is grossly intact. LABS: Sodium 127, potassium 3.9, chloride 91, BUN 14, creatinine 0.9 mg/dL. ASSESSMENT: 1. Hyponatremia, initially hypovolemic and improved with normal saline; however, patient developed congestive heart failure and volume overload yesterday. She received a dose of IV Lasix and IV fluids were discontinued. She is feeling much better today. Serum sodium continues to rise. We will repeat it in a.m. Continue off of IV fluids and diuretics for now. Encourage increased protein intake. 2. Hypokalemia secondary to poor oral intake and use of thiazide diuretics prior to admission. PLAN: Continue off of thiazides. Continue off of IV fluids and other diuretics as well. Repeat labs in a.m. MMODL / IJN: [id number] /
[2019-10-14] MEDS: ATORVASTATIN 10 MG TAB PO SCH (21:42)
[2019-10-14] MEDS: FERROUS SULFATE 325 MG TAB PO SCH (21:42)
[2019-10-15] MEDS: LEVOTHYROXINE 25 MCG TAB PO SCH (06:03)
[2019-10-15 06:39] LABS: Calcium 9.5 mg/dL (8.4-10.2); Potassium 3.5 mmol/L (3.5-5.1)
[2019-10-15] MEDS: IPRATROPIUM-ALBUTEROL 3 ML NEB INHALATION SCH ×4 (08:29→19:47)
[2019-10-15] MEDS: amLODIPine 5 MG TAB PO SCH (09:11)
[2019-10-15] MEDS: HEPARIN SODIUM,PORCINE 5,000 UNIT/ML 1 ML VIAL SQ SCH ×2 (09:11→21:50)
[2019-10-15] MEDS: ASPIRIN 81 MG PO SCH ×2 (09:11→21:51)
[2019-10-15] MEDS: CHOLECALCIFEROL 1,000 UNIT TAB PO SCH (09:12)
[2019-10-15] MEDS: PANTOPRAZOLE 40 MG TABLET PO SCH (09:12)
[2019-10-15] MEDS: FLUTICASONE 50MCG/SPRAY NASAL 16GM EA NOSTRIL SCH ×2 (09:12→21:51)
[2019-10-15] MEDS: HYDROcodone/APAP 7.5-325MG 1 EACH TAB PO PRN ×3 (09:12→21:49)
[2019-10-15] MEDS: CYANOCOBALAMIN 500 MCG TAB PO SCH (09:12)
--- NOTE | 2019-10-15 10:44 | P.PN ---
Subjective Progress Note Date: 10/15/19 This is an 83-year-old female patient of Dr. Carlin with past medical history of hypertension, hyperlipidemia, gastroesophageal reflux disease, hypothyroidism, macular degeneration, osteoporosis, PE December 2017. Patient had a recent hospitalization September 24 through September 25 for acute shortness of breath with negative CTA, hyponatremia secondary to Dyazide. Patient states that she developed left shoulder pains that were sharp. She denies any chest pain, no shortness of breath. She denies any history of COPD of emphysema. She does not utilize nebulizer or oxygen. She complains of a sore throat and mild hoarseness. She has had some weight loss since recently hospitalized of 7 pounds. Patient utilizes Dyazide at home on an as-needed basis for lower extremity edema. Patient states that she has not been urinating very much. She states she has been constipated but did have a bowel movement today. She does have chronic memory trouble. She denies any recent syncopal episodes. She lives at home with her . Patient presented to [facility] emergency center for evaluation. Initial blood pressure 169/108, afebrile, heart rate 82, pulse ox 100% on room air. CBC unremarkable, sodium 118, potassium 3.8, chloride 78, CO2 26, BUN 19 creatinine 0.98, glucose 115, osmolality 249, magnesium 1.5, AST 40, troponin negative, TSH 1.380. Urine osmolality 204, urine creatinine 33.3, urine sodium 23, potassium 26. Group A strep rapid screen is negative. Patient was placed on the cardiac stepdown unit and consult with nephrology. Repeat blood work this morning reveals sodium of 124, potassium 3.4 and chloride 88, CO2 26. 10/14: Yesterday afternoon, patient was complaining of shortness of breath and IV fluids were discontinued and patient given 1 dose of IV Lasix 20 mg. Patient continues to have coughing that seems to be causing her shortness of breath. Saline lock remains in place. We did order a second dose of Lasix 40 mg this morning. Chest x-ray showed no acute cardiopulmonary disease. Pulse ox is 100% on room air. Heart rate 72, blood pressure 109/62, afebrile. Sodium today is at 127. Patient is followed by nephrology. Patient is worked with physical therapy and recommendations for home. Anticipate patient will be ready for discharge tomorrow. : patient is sitting up in bed , with poor appetite and her sodium is down to 126 today from 128, we will liberate salt intake we will continue with Fluid restriction to 1000 ml in 24 hours and will check serum osmolality and urine osmolality and if her sodium is stable tomorrow will discharge home in AM, she may need Samska(Tolvaptan). Objective - Vital Signs Vital signs: Vital Signs Temp 97.9 F 10/14/19 16:00 Pulse 77 10/15/19 05:00 Resp 18 10/15/19 05:00 BP 106/60 10/15/19 05:00 Pulse Ox 97 10/15/19 05:00 Intake & Output 10/14/19 10/15/19 10/15/19 18:59 06:59 18:59 Intake Total 1080 Output Total 200 Balance 880 Weight 47.7 kg 47.6 kg Intake: Oral 1080 Output: Urine 200 Other: # Voids 2 1 # Bowel Movements 1 - Exam - Exam Review of Systems Constitutional: Reports fatigue, Reports weakness, Reports weight loss, Denies chills, Denies fever Eyes: denies blurred vision, denies pain Ears, nose, mouth and throat: Reports dysphagia, Reports sore throat, Denies epistaxis, Denies nasal congestion Cardiovascular: Denies chest pain, Denies edema, Denies leg edema, Denies lightheadedness, Denies syncope Respiratory: Reports cough, denies cough with sputum, Denies excessive sputum, Denies hemoptysis, Denies home oxygen Gastrointestinal: Reports constipation, Reports loss of appetite, Denies abd ominal pain, Denies diarrhea, Denies nausea, Denies vomiting Genitourinary: Denies dysuria, Denies hematuria, Denies urgency, Denies urinary frequency Musculoskeletal: Reports muscle weakness, Denies frequent falls, Denies myalgias Integumentary: Denies pruritus, Denies rash, Denies wounds Neurological: Denies change in mentation, Denies change in speech, Denies numbness, Denies seizures, Denies weakness Psychiatric: Denies anxiety, Denies depression Endocrine: Denies fatigue, Denies weight change Physical exam Gen: This is a frail-appearing 83-year-old female. Patient is resting in bed sleeping and awakens easily to verbal stimuli. is at bedside. HEENT: Head is atraumatic, normocephalic. Pupils equal, round. Sclerae is anicteric. Patient is significantly hard of hearing. NECK: Supple. No JVD. No lymphadenopathy. No thyromegaly. LUNGS: Slightly diminished in the bases. No intercostal retractions. HEART: Regular rate and rhythm. No murmur. ABDOMEN: Soft. Bowel sounds are present. No masses. No tenderness. EXTREMITIES: No pedal edema. No calf tenderness. NEUROLOGICAL: Patient is awake, alert and oriented x3. Cranial nerves 2 through 12 are grossly intact. - Labs CBC & Chem 7: 10/13/19 06:01 10/15/19 05:51 Labs: Abnormal Lab Results - Last 24 Hours (Table) 10/15/19 Range/Units 05:51 Sodium 126 L (137-145) mmol/L Chloride 89 L (98-107) mmol/L Creatinine 1.08 H (0.52-1.04) mg/dL Assessment and Plan Assessment: Assessment and Plan Plan: 1. Hyponatremia. 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 2. Left shoulder pain most likely secondary to osteoarthritis. Patient denies having chest pain. 3. Recent hospitalization for shortness of breath with negative CTA followed by a negative VQ scan for PE. 4. Hypertension. Continue amlodipine 2.5 mg daily. 5. Hyperlipidemia. Continue atorvastatin 10 mg at bedtime. 6. Hypothyroidism. Continue levothyroxine at current dose. 7. Cervical disc disease with retrolisthesis, stable. Continue [place] as needed for pain. 8. History of dysphagia to solid foods. 9. Sore throat with negative strep screen. Cepacol lozenges. 10. DVT prophylaxis. Heparin subcu. 11. Cough with shortness of breath most likely due to tracheobronchitis. Chest x-ray negative. 12. If sodium is better or same tomorrow will send home.
--- NOTE | 2019-10-15 13:07 | P.PN ---
Subjective Progress Note Date: 10/15/19 Follow-up for hyponatremia. Sodium stable around 125-127. No nausea vomiting or diarrhea. Admits drinking a lot of fluids and was on sites at home. Objective - Vital Signs Vital signs: Vital Signs Temp 97.7 F 10/15/19 11:43 Pulse 88 10/15/19 11:43 Resp 18 10/15/19 11:43 BP 104/73 10/15/19 11:43 Pulse Ox 98 10/15/19 11:43 Intake & Output 10/14/19 10/15/19 10/15/19 18:59 06:59 18:59 Intake Total 1080 180 Output Total 200 Balance 880 180 Weight 47.7 kg 47.6 kg Intake: Oral 1080 180 Output: Urine 200 Other: # Voids 2 1 # Bowel Movements 1 - Exam No acute distress S1-S2 heard Lungs clear No edema - Labs CBC & Chem 7: 10/13/19 06:01 10/15/19 05:51 Labs: Abnormal Lab Results - Last 24 Hours (Table) 10/15/19 10/15/19 Range/Units 05:51 05:51 Sodium 126 L (137-145) mmol/L Chloride 89 L (98-107) mmol/L Creatinine 1.08 H (0.52-1.04) mg/dL Osmolality 264 L (280-301) mosm/kg Assessment and Plan Assessment: #1 hypotonic hyponatremia, initially was behaving like hypovolemic. Rule out SIADH #2 essential hypertension Plan: #1 agree with holding IV fluids, Lasix. Give a dose of tall N repeat labs in the morning.
[2019-10-15] MEDS ORDERED: TOLVAPTAN 15 MG 1/2 TABLET PO ONE (14:00)
[2019-10-15] MEDS: FERROUS SULFATE 325 MG TAB PO SCH (21:50)
[2019-10-15] MEDS: ATORVASTATIN 10 MG TAB PO SCH (21:51)
[2019-10-16] MEDS ORDERED: SENNOSIDES 8.6 MG TAB PO PRN (01:51)
[2019-10-16 06:22] LABS: Basophils % (A) 0 %; Eosinophils # (A) 0.1 k/uL (0-0.7); Eosinophils % (A) 1 %; HCT 33.1 % (34.0-46.0); HGB 11.5 gm/dL (11.4-16.0); Lymphocytes # (A) 1.4 k/uL (1.0-4.8); Lymphocytes % (A) 17 %; MCH 28.9 pg (25.0-35.0); MCHC 34.9 g/dL (31.0-37.0); MCV 82.8 fL (80.0-100.0); Mean Platelet Volume 8.5; Monocytes # (A) 0.3 k/uL (0-1.0); Monocytes % (A) 4 %; Neutrophils # (A) 6.6 k/uL (1.3-7.7); Neutrophils % (A) 77 %; Platelet Count 219 k/uL (150-450); RDW 12.1 % (11.5-15.5); WBC 8.6 k/uL (3.8-10.6)
[2019-10-16] MEDS: LEVOTHYROXINE 25 MCG TAB PO SCH (06:31)
[2019-10-16 06:40] LABS: Albumin 4.2 g/dL (3.5-5.0); Calcium 9.9 mg/dL (8.4-10.2); Potassium 4.1 mmol/L (3.5-5.1); Total Bilirubin 0.8 mg/dL (0.2-1.3); Total Protein 6.4 g/dL (6.3-8.2)
[2019-10-16] MEDS: HEPARIN SODIUM,PORCINE 5,000 UNIT/ML 1 ML VIAL SQ SCH ×2 (08:15→20:38)
[2019-10-16] MEDS: IPRATROPIUM-ALBUTEROL 3 ML NEB INHALATION SCH ×4 (08:18→20:16)
[2019-10-16] MEDS: ASPIRIN 81 MG PO SCH ×2 (08:24→20:37)
[2019-10-16] MEDS: HYDROcodone/APAP 7.5-325MG 1 EACH TAB PO PRN ×2 (08:24→20:43)
[2019-10-16] MEDS: PANTOPRAZOLE 40 MG TABLET PO SCH (08:24)
[2019-10-16] MEDS: CHOLECALCIFEROL 1,000 UNIT TAB PO SCH (08:24)
[2019-10-16] MEDS: amLODIPine 5 MG TAB PO SCH (08:26)
[2019-10-16] MEDS: FLUTICASONE 50MCG/SPRAY NASAL 16GM EA NOSTRIL SCH ×2 (08:27→20:38)
--- NOTE | 2019-10-16 09:40 | P.PN ---
Subjective Progress Note Date: 10/16/19 This is an 83-year-old female patient of Dr. Carlin with past medical history of hypertension, hyperlipidemia, gastroesophageal reflux disease, hypothyroidism, macular degeneration, osteoporosis, PE December 2017. Patient had a recent hospitalization September 24 through September 25 for acute shortness of breath with negative CTA, hyponatremia secondary to Dyazide. Patient states that she developed left shoulder pains that were sharp. She denies any chest pain, no shortness of breath. She denies any history of COPD of emphysema. She does not utilize nebulizer or oxygen. She complains of a sore throat and mild hoarseness. She has had some weight loss since recently hospitalized of 7 pounds. Patient utilizes Dyazide at home on an as-needed basis for lower extremity edema. Patient states that she has not been urinating very much. She states she has been constipated but did have a bowel movement today. She does have chronic memory trouble. She denies any recent syncopal episodes. She lives at home with her . Patient presented to [facility] emergency center for evaluation. Initial blood pressure 169/108, afebrile, heart rate 82, pulse ox 100% on room air. CBC unremarkable, sodium 118, potassium 3.8, chloride 78, CO2 26, BUN 19 creatinine 0.98, glucose 115, osmolality 249, magnesium 1.5, AST 40, troponin negative, TSH 1.380. Urine osmolality 204, urine creatinine 33.3, urine sodium 23, potassium 26. Group A strep rapid screen is negative. Patient was placed on the cardiac stepdown unit and consult with nephrology. Repeat blood work this morning reveals sodium of 124, potassium 3.4 and chloride 88, CO2 26. 10/14: Yesterday afternoon, patient was complaining of shortness of breath and IV fluids were discontinued and patient given 1 dose of IV Lasix 20 mg. Patient continues to have coughing that seems to be causing her shortness of breath. Saline lock remains in place. We did order a second dose of Lasix 40 mg this morning. Chest x-ray showed no acute cardiopulmonary disease. Pulse ox is 100% on room air. Heart rate 72, blood pressure 109/62, afebrile. Sodium today is at 127. Patient is followed by nephrology. Patient is worked with physical therapy and recommendations for home. Anticipate patient will be ready for discharge tomorrow. : patient is sitting up in bed , with poor appetite and her sodium is down to 126 today from 128, we will liberate salt intake we will continue with Fluid restriction to 1000 ml in 24 hours and will check serum osmolality and urine osmolality and if her sodium is stable tomorrow will discharge home in AM, she may need Samska(Tolvaptan). 10/15: Patient is laying down in bed she appears weak today her sodium dropped to 125 from yesterday, she did receive a dose of Tolvaptan yesterday without any her change in her sodium she may need to continue to be on that and hopefully keep her in the hospital for another 24 hours and reevaluated the next 24 hours she denies any headache at this time she has no blurred vision or double vision, she has no muscle twitches, she has no abdominal pain, nausea, vomiting, and she is eating a bit better today more liberate her food and more salt in her diet Objective - Vital Signs Vital signs: Vital Signs Temp 98 F 10/16/19 08:00 Pulse 74 10/16/19 08:00 Resp 18 10/16/19 08:00 BP 99/58 10/16/19 08:00 Pulse Ox 94 L 10/16/19 08:00 Intake & Output 10/15/19 10/16/19 10/16/19 18:59 06:59 18:59 Intake Total 420 Output Total 200 Balance 420 -200 Weight 47.3 kg Intake: Oral 420 Output: Urine 200 Other: # Voids 2 - Exam - Exam Review of Systems Constitutional: Reports fatigue, Reports weakness, Reports weight loss, Denies chills, Denies fever Eyes: denies blurred vision, denies pain Ears, nose, mouth and throat: Reports dysphagia, Reports sore throat, Denies epistaxis, Denies nasal congestion Cardiovascular: Denies chest pain, Denies edema, Denies leg edema, Denies lightheadedness, Denies syncope Respiratory: Reports cough, denies cough with sputum, Denies excessive sputum, Denies hemoptysis, Denies home oxygen Gastrointestinal: Reports constipation, Reports loss of appetite, Denies abdominal pain, Denies diarrhea, Denies nausea, Denies vomiting Genitourinary: Denies dysuria, Denies hematuria, Denies urgency, Denies urinary frequency Musculoskeletal: Reports muscle weakness, Denies frequent falls, Denies myalgias Integumentary: Denies pruritus, Denies rash, Denies wounds Neurological: Denies change in mentation, Denies change in speech, Denies numbness, Denies seizures, Denies weakness Psychiatric: Denies anxiety, Denies depression Endocrine: Denies fatigue, Denies weight change Physical exam Gen: This is a frail-appearing 83-year-old female. Patient is resting in bed sleeping and awakens easily to verbal stimuli. is at bedside. HEENT: Head is atraumatic, normocephalic. Pupils equal, round. Sclerae is anicteric. Patient is significantly hard of hearing. NECK: Supple. No JVD. No lymphadenopathy. No thyromegaly. LUNGS: Slightly diminished in the bases. No intercostal retractions. HEART: Regular rate and rhythm. No murmur. ABDOMEN: Soft. Bowel sounds are present. No masses. No tenderness. EXTREMITIES: No pedal edema. No calf tenderness. NEUROLOGICAL: Patient is awake, alert and oriented x3. Cranial nerves 2 through 12 are grossly intact. - Labs CBC & Chem 7: 10/16/19 05:30 10/16/19 05:30 Labs: Abnormal Lab Results - Last 24 Hours (Table) 10/15/19 10/16/19 10/16/19 Range/Units 05:51 05:30 05:30 Hct 33.1 L (34.0-46.0) % Sodium 125 L (137-145) mmol/L Chloride 87 L (98-107) mmol/L Creatinine 1.13 H (0.52-1.04) mg/dL Osmolality 264 L (280-301) mosm/kg Microbiology - Last 24 Hours (Table) 10/12/19 23:20 Group A Strep Throat Culture - Final Throat Assessment and Plan Assessment: Assessment and Plan Plan: 1. Hyponatremia. 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 2. Left shoulder pain most likely secondary to osteoarthritis. Patient denies having chest pain. 3. Recent hospitalization for shortness of breath with negative CTA followed by a negative VQ scan for PE. 4. Hypertension. Continue amlodipine 2.5 mg daily. 5. Hyperlipidemia. Continue atorvastatin 10 mg at bedtime. 6. Hypothyroidism. Continue levothyroxine at current dose. 7. Cervical disc disease with retrolisthesis, stable. Continue [place] as needed for pain. 8. History of dysphagia to solid foods. 9. Sore throat with negative strep screen. Cepacol lozenges. 10. DVT prophylaxis. Heparin subcu. 11. Cough with shortness of breath most likely due to tracheobronchitis. Chest x-ray negative. 12. If sodium is better or same tomorrow will send home.
[2019-10-16 11:54] LABS: Appearance,Urine Clear (Clear); Bilirubin,Urine Negative (Negative); Blood,Urine Negative (Negative); Color,Urine Colorless; Glucose,Urine (UA) Negative (Negative); Ketones,Urine Negative (Negative); Leukocyte Esterase,Urine Moderate (Negative); Nitrite,Urine Negative (Negative); Protein,Urine Negative (Negative); RBC,Urine 1 /hpf (0-5); Specific Gravity,Urine 1.003 (1.001-1.035); Urobilinogen,Urine <2.0 mg/dL (<2.0); WBC,Urine 3 /hpf (0-5)
--- NOTE | 2019-10-16 12:11 | P.PN ---
Subjective Progress Note Date: 10/16/19 Follow-up for hyponatremia. Sodium stable around 125-127. No nausea vomiting or diarrhea. Admits drinking lot of fluids at home. Objective - Vital Signs Vital signs: Vital Signs Temp 97.9 F 10/16/19 11:25 Pulse 77 10/16/19 11:25 Resp 18 10/16/19 11:25 BP 123/69 10/16/19 11:25 Pulse Ox 100 10/16/19 11:25 Intake & Output 10/15/19 10/16/19 10/16/19 18:59 06:59 18:59 Intake Total 420 Output Total 200 Balance 420 -200 Weight 47.3 kg Intake: Oral 420 Output: Urine 200 Other: # Voids 2 - Exam No acute distress S1-S2 heard Lungs clear No edema - Labs CBC & Chem 7: 10/16/19 05:30 10/16/19 05:30 Labs: Abnormal Lab Results - Last 24 Hours (Table) 10/16/19 10/16/19 10/16/19 Range/Units 05:30 05:30 11:31 Hct 33.1 L (34.0-46.0) % Sodium 125 L (137-145) mmol/L Chloride 87 L (98-107) mmol/L Creatinine 1.13 H (0.52-1.04) mg/dL Ur Leukocyte Esterase Moderate H (Negative) Microbiology - Last 24 Hours (Table) 10/12/19 23:20 Group A Strep Throat Culture - Final Throat Assessment and Plan Assessment: #1 hypotonic hyponatremia, secondary to SIADH. #2 essential hypertension Plan: #1 Samsca was given yesterday. No response. Give 1 more dose today. #2 labs in the morning
[2019-10-16] MEDS ORDERED: TOLVAPTAN 15 MG 1/2 TABLET PO ONE (12:30)
[2019-10-16] MEDS ORDERED: TOLVAPTAN 30 MG TABLET PO ONE (12:30)
[2019-10-16] MEDS: ATORVASTATIN 10 MG TAB PO SCH (20:37)
[2019-10-16] MEDS: FERROUS SULFATE 325 MG TAB PO SCH (20:37)
[2019-10-17] MEDS: LEVOTHYROXINE 25 MCG TAB PO SCH (06:19)
[2019-10-17] MEDS: IPRATROPIUM-ALBUTEROL 3 ML NEB INHALATION SCH ×4 (08:52→20:41)
[2019-10-17] MEDS: FLUTICASONE 50MCG/SPRAY NASAL 16GM EA NOSTRIL SCH ×2 (09:14→20:22)
[2019-10-17] MEDS: ASPIRIN 81 MG PO SCH ×2 (09:14→20:21)
[2019-10-17] MEDS: PANTOPRAZOLE 40 MG TABLET PO SCH (09:14)
[2019-10-17] MEDS: CYANOCOBALAMIN 500 MCG TAB PO SCH (09:15)
[2019-10-17] MEDS: HEPARIN SODIUM,PORCINE 5,000 UNIT/ML 1 ML VIAL SQ SCH ×2 (09:15→20:22)
[2019-10-17] MEDS: CHOLECALCIFEROL 1,000 UNIT TAB PO SCH (09:15)
[2019-10-17] MEDS: amLODIPine 5 MG TAB PO SCH (09:18)
--- NOTE | 2019-10-17 10:06 | P.PN ---
Subjective Patient is seen in follow-up for hyponatremia. Sodium level was 125 as of yesterday. She received second dose of Samsca yesterday. No edema. Good urine output. Vital signs are stable. General: The patient appeared well nourished and normally developed. HEENT: Head exam is unremarkable. Neck is without jugular venous distension. LUNGS: Lungs are clear to auscultation and percussion. Breath sounds decreased. HEART: Rate and Rhythm are regular. First and second heart sounds normal. No murmurs, rubs or gallops. ABDOMEN: Abdominal exam reveals normal bowel sounds. Non-tender and non- distended. No evidence of peritonitis. EXTREMITITES: No clubbing, cyanosis, or edema. Objective - Vital Signs Vital signs: Vital Signs Temp 98 F 10/17/19 08:00 Pulse 86 10/17/19 08:00 Resp 16 10/17/19 08:00 BP 113/62 10/17/19 08:00 Pulse Ox 100 10/17/19 08:00 Intake & Output 10/16/19 10/17/19 10/17/19 18:59 06:59 18:59 Intake Total 420 360 Output Total 360 Balance 420 -360 360 Weight 47.7 kg Intake: Oral 420 360 Output: Urine 360 Other: Voiding Method Toilet # Voids 0 - Labs CBC & Chem 7: 10/16/19 05:30 10/16/19 05:30 Labs: Abnormal Lab Results - Last 24 Hours (Table) 10/16/19 Range/Units 11:31 Ur Leukocyte Esterase Moderate H (Negative) Assessment and Plan Plan: Assessment: 1. Hyponatremia. Currently appears euvolemic. Component of poor solute intake and excessive fluid intake. Urine osmolality noted to be low at 204. She was also on hydrochlorothiazide which is currently held. 2. Benign hypertension. Controlled. Plan: Check TSH and uric acid level. Add 1200 mL fluid restriction. Encourage oral intake, particularly protein. Add ensure 3 times daily. Avoid thiazide diuretics in the future. Follow-up morning labs.
[2019-10-17 10:54] LABS: Magnesium 1.9 mg/dL (1.6-2.3); Potassium 5.3 mmol/L (3.5-5.1); Uric Acid 6.7 mg/dL (3.7-7.4)
[2019-10-17] MEDS ORDERED: SODIUM CHLORIDE TAB 1 GM TAB PO STA (12:21)
--- NOTE | 2019-10-17 15:10 | P.PN ---
Subjective Progress Note Date: 10/17/19 This is an 83-year-old female patient of Dr. Carlin with past medical history of hypertension, hyperlipidemia, gastroesophageal reflux disease, hypothyroidism, macular degeneration, osteoporosis, PE December 2017. Patient had a recent hospitalization September 24 through September 25 for acute shortness of breath with negative CTA, hyponatremia secondary to Dyazide. Patient states that she developed left shoulder pains that were sharp. She denies any chest pain, no shortness of breath. She denies any history of COPD of emphysema. She does not utilize nebulizer or oxygen. She complains of a sore throat and mild hoarseness. She has had some weight loss since recently hospitalized of 7 pounds. Patient utilizes Dyazide at home on an as-needed basis for lower extremity edema. Patient states that she has not been urinating very much. She states she has been constipated but did have a bowel movement today. She does have chronic memory trouble. She denies any recent syncopal episodes. She lives at home with her . Patient presented to [facility] emergency center for evaluation. Initial blood pressure 169/108, afebrile, heart rate 82, pulse ox 100% on room air. CBC unremarkable, sodium 118, potassium 3.8, chloride 78, CO2 26, BUN 19 creatinine 0.98, glucose 115, osmolality 249, magnesium 1.5, AST 40, troponin negative, TSH 1.380. Urine osmolality 204, urine creatinine 33.3, urine sodium 23, potassium 26. Group A strep rapid screen is negative. Patient was placed on the cardiac stepdown unit and consult with nephrology. Repeat blood work this morning reveals sodium of 124, potassium 3.4 and chloride 88, CO2 26. 10/14: Yesterday afternoon, patient was complaining of shortness of breath and IV fluids were discontinued and patient given 1 dose of IV Lasix 20 mg. Patient continues to have coughing that seems to be causing her shortness of breath. Saline lock remains in place. We did order a second dose of Lasix 40 mg this morning. Chest x-ray showed no acute cardiopulmonary disease. Pulse ox is 100% on room air. Heart rate 72, blood pressure 109/62, afebrile. Sodium today is at 127. Patient is followed by nephrology. Patient is worked with physical therapy and recommendations for home. Anticipate patient will be ready for discharge tomorrow. : patient is sitting up in bed , with poor appetite and her sodium is down to 126 today from 128, we will liberate salt intake we will continue with Fluid restriction to 1000 ml in 24 hours and will check serum osmolality and urine osmolality and if her sodium is stable tomorrow will discharge home in AM, she may need Samska(Tolvaptan). 10/15: Patient is laying down in bed she appears weak today her sodium dropped to 125 from yesterday, she did receive a dose of Tolvaptan yesterday without any her change in her sodium she may need to continue to be on that and hopefully keep her in the hospital for another 24 hours and reevaluated the next 24 hours she denies any headache at this time she has no blurred vision or double vision, she has no muscle twitches, she has no abdominal pain, nausea, vomiting, and she is eating a bit better today more liberate her food and more salt in her diet 10/16: Repeat sodium today is 127. Patient is feeling much improved and back to her baseline. She denies any nausea, no edema. She has been encouraged to continue taking ensure. Patient is currently on a 1200 L fluid restriction. Nephrology has added in sodium and chloride tablet 1 g twice daily and plan to monitor overnight. Plan is for discharge home tomorrow. Objective - Vital Signs Vital signs: Vital Signs Temp 98 F 10/17/19 08:00 Pulse 86 10/17/19 08:00 Resp 16 10/17/19 08:00 BP 113/62 10/17/19 08:00 Pulse Ox 100 10/17/19 08:00 Intake & Output 10/16/19 10/17/19 10/17/19 18:59 06:59 18:59 Intake Total 420 360 Output Total 360 Balance 420 -360 360 Weight 47.7 kg Intake: Oral 420 360 Output: Urine 360 Other: Voiding Method Toilet # Voids 0 - Exam Review of Systems Constitutional: Denies fatigue, denies weakness, Reports weight loss, Denies chills, Denies fever Eyes: denies blurred vision, denies pain Ears, nose, mouth and throat: Reports dysphagia, Reports sore throat, Denies epistaxis, Denies nasal congestion Cardiovascular: Denies chest pain, Denies edema, Denies leg edema, Denies lightheadedness, Denies syncope Respiratory: Denies cough, denies cough with sputum, Denies excessive sputum, Denies hemoptysis, Denies home oxygen Gastrointestinal: Denies constipation, denies loss of appetite, Denies abdominal pain, Denies diarrhea, Denies nausea, Denies vomiting Genitourinary: Denies dysuria, Denies hematuria, Denies urgency, Denies urinary frequency Musculoskeletal: Reports muscle weakness, Denies frequent falls, Denies myalgias Integumentary: Denies pruritus, Denies rash, Denies wounds Neurological: Denies change in mentation, Denies change in speech, Denies numbness, Denies seizures, Denies weakness Psychiatric: Denies anxiety, Denies depression Endocrine: Denies fatigue, Denies weight change Physical exam Gen: This is a frail-appearing 83-year-old female. Patient sitting in chair and appears to be comfortable and in no acute distress. is at bedside. HEENT: Head is atraumatic, normocephalic. Pupils equal, round. Sclerae is anicteric. Patient is significantly hard of hearing. NECK: Supple. No JVD. No lymphadenopathy. No thyromegaly. LUNGS: Slightly diminished in the bases. No intercostal retractions. HEART: Regular rate and rhythm. No murmur. ABDOMEN: Soft. Bowel sounds are present. No masses. No tenderness. EXTREMITIES: No pedal edema. No calf tenderness. Dorsalis pedis +2 peterson aterally. NEUROLOGICAL: Patient is awake, alert and oriented x3. Cranial nerves 2 through 12 are grossly intact. - Labs CBC & Chem 7: 10/16/19 05:30 10/17/19 10:28 Labs: Abnormal Lab Results - Last 24 Hours (Table) 10/16/19 Range/Units 11:31 Ur Leukocyte Esterase Moderate H (Negative) Assessment and Plan Plan: 1. 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 Patient is on fluid restriction status post [facility]. Consult with nephrology appreciated. Sodium chloride 1 g twice daily added. Repeat blood work in the morning. 2. Left shoulder pain most likely secondary to osteoarthritis. Patient denies having chest pain. 3. Recent hospitalization for shortness of breath with negative CTA followed by a negative VQ scan for PE. 4. Hypertension. Continue amlodipine 2.5 mg daily. 5. Hyperlipidemia. Continue atorvastatin 10 mg at bedtime. 6. Hypothyroidism. Continue levothyroxine at current dose. 7. Cervical disc disease with retrolisthesis, stable. Continue [place] as needed for pain. 8. History of dysphagia to solid foods. 9. Sore throat with negative strep screen. Cepacol lozenges. 10. DVT prophylaxis. Heparin subcu. 11. Cough with shortness of breath most likely due to tracheobronchitis. Chest x-ray negative. Discharge plan: Home tomorrow. Impression and plan of care have been directed as dictated by the signing physician. Lise Iqbal nurse practitioner acting as scribe for signing physician.
[2019-10-17] MEDS: ATORVASTATIN 10 MG TAB PO SCH (20:21)
[2019-10-17] MEDS: FERROUS SULFATE 325 MG TAB PO SCH (20:21)
[2019-10-17] MEDS: HYDROcodone/APAP 7.5-325MG 1 EACH TAB PO PRN (20:27)
[2019-10-17] MEDS: SODIUM CHLORIDE TAB 1 GM TAB PO SCH (20:35)
[2019-10-18] MEDS ORDERED: MELATONIN 3 MG TABLET PO PRN (00:34)
[2019-10-18 05:03] VITALS: RESP 16
[2019-10-18] MEDS: LEVOTHYROXINE 25 MCG TAB PO SCH (05:52)
[2019-10-18] MEDS: IPRATROPIUM-ALBUTEROL 3 ML NEB INHALATION SCH ×2 (07:11→12:37)
[2019-10-18 07:59] VITALS: BP 110/74; PULSE 73; TEMP 97.7
[2019-10-18] MEDS: SODIUM CHLORIDE TAB 1 GM TAB PO SCH (08:55)
[2019-10-18] MEDS: PANTOPRAZOLE 40 MG TABLET PO SCH (08:56)
[2019-10-18] MEDS: HEPARIN SODIUM,PORCINE 5,000 UNIT/ML 1 ML VIAL SQ SCH (08:56)
[2019-10-18] MEDS: CHOLECALCIFEROL 1,000 UNIT TAB PO SCH (08:56)
[2019-10-18] MEDS: amLODIPine 5 MG TAB PO SCH (08:56)
[2019-10-18] MEDS: ASPIRIN 81 MG PO SCH (08:56)
[2019-10-18] MEDS: FLUTICASONE 50MCG/SPRAY NASAL 16GM EA NOSTRIL SCH (09:00)
[2019-10-18 09:47] LABS: Calcium 10.1 mg/dL (8.4-10.2); Potassium 5.4 mmol/L (3.5-5.1)
--- NOTE | 2019-10-18 12:14 | P.PN ---
Subjective Patient is seen in follow-up for hyponatremia. Sodium level 130 today. No edema. Good urine output. Vital signs are stable. General: The patient appeared well nourished and normally developed. HEENT: Head exam is unremarkable. Neck is without jugular venous distension. LUNGS: Lungs are clear to auscultation and percussion. Breath sounds decreased. HEART: Rate and Rhythm are regular. First and second heart sounds normal. No murmurs, rubs or gallops. ABDOMEN: Abdominal exam reveals normal bowel sounds. Non-tender and non- distended. No evidence of peritonitis. EXTREMITITES: No clubbing, cyanosis, or edema. Objective - Vital Signs Vital signs: Vital Signs Temp 97.7 F 10/18/19 07:58 Pulse 73 10/18/19 07:58 Resp 16 10/18/19 07:58 BP 110/74 10/18/19 07:58 Pulse Ox 100 10/18/19 07:58 Intake & Output 10/17/19 10/18/19 10/18/19 18:59 06:59 18:59 Intake Total 1180 400 Balance 1180 400 Weight 47.7 kg 48.3 kg Intake: Oral 1180 400 Other: Voiding Method Toilet Toilet Toilet # Voids 2 1 2 - Labs CBC & Chem 7: 10/16/19 05:30 10/18/19 07:56 Labs: Abnormal Lab Results - Last 24 Hours (Table) 10/18/19 Range/Units 07:56 Sodium 130 L (137-145) mmol/L Potassium 5.4 H (3.5-5.1) mmol/L Chloride 92 L (98-107) mmol/L Creatinine 1.19 H (0.52-1.04) mg/dL Glucose 102 H (74-99) mg/dL Assessment and Plan Plan: Assessment: 1. Hyponatremia. Currently appears euvolemic. Component of poor solute intake and excessive fluid intake. Urine osmolality noted to be low at 204. She was also on hydrochlorothiazide which is currently held. Better. TSH and uric acid normal. 2. Benign hypertension. Controlled. Plan: 1200 mL fluid restriction. Encourage oral intake, particularly protein. Added ensure 3 times daily. Avoid thiazide diuretics in the future. Maintain salt tabs. Anticipate discharge soon. Repeat BMP in 2-3 days postdischarge. Follow up outpatient in 1-2 weeks.
[2019-10-18] MEDS: HYDROcodone/APAP 7.5-325MG 1 EACH TAB PO PRN (12:30)
--- NOTE | 2019-10-19 09:29 | P.DS ---
Providers Date of admission: 10/12/19 22:40 Expected date of discharge: 10/18/19 Attending physician: Chela Carlin Consults: 10/12/19 22:38 Consult Physician Routine Consulting Provider: Nasra Acosta Consult Reason/Comments: hyponatremia Do you want consulting provider notified?: Yes Primary care physician: Chela Carlin [facility] Course: This is an 83-year-old female patient of Dr. Carlin with past medical history of hypertension, hyperlipidemia, gastroesophageal reflux disease, hypothyroidism, macular degeneration, osteoporosis, PE December 2017. Patient had a recent hospitalization September 24 through September 25 for acute shortness of breath with negative CTA, hyponatremia secondary to Dyazide. Patient states that she developed left shoulder pains that were sharp. She denies any chest pain, no shortness of breath. She denies any history of COPD of emphysema. She does not utilize nebulizer or oxygen. She complains of a sore throat and mild hoarseness. She has had some weight loss since recently hospitalized of 7 pounds. Patient utilizes Dyazide at home on an as-needed basis for lower extremity edema. Patient states that she has not been urinating very much. She states she has been constipated but did have a bowel movement today. She does have chronic memory trouble. She denies any recent syncopal episodes. She lives at home with her . Patient presented to [facility] emergency center for evaluation. Initial blood pressure 169/108, afebrile, heart rate 82, pulse ox 100% on room air. CBC unremarkable, sodium 118, potassium 3.8, chloride 78, CO2 26, BUN 19 creatinine 0.98, glucose 115, osmolality 249, magnesium 1.5, AST 40, troponin negative, TSH 1.380. Urine osmolality 204, urine creatinine 33.3, urine sodium 23, potassium 26. Group A strep rapid screen is negative. Patient was placed on the cardiac stepdown unit and consult with nephrology. Repeat blood work this morning reveals sodium of 124, potassium 3.4 and chloride 88, CO2 26. 2/28: Yesterday afternoon, patient was complaining of shortness of breath and IV fluids were discontinued and patient given 1 dose of IV Lasix 20 mg. Patient continues to have coughing that seems to be causing her shortness of breath. Saline lock remains in place. We did order a second dose of Lasix 40 mg this morning. Chest x-ray showed no acute cardiopulmonary disease. Pulse ox is 100% on room air. Heart rate 72, blood pressure 109/62, afebrile. Sodium today is at 127. Patient is followed by nephrology. Patient is worked with physical therapy and recommendations for home. Anticipate patient will be ready for discharge tomorrow. : patient is sitting up in bed , with poor appetite and her sodium is down to 126 today from 128, we will liberate salt intake we will continue with Fluid restriction to 1000 ml in 24 hours and will check serum osmolality and urine osmolality and if her sodium is stable tomorrow will discharge home in AM, she may need Samska(Tolvaptan). 10/15: Patient is laying down in bed she appears weak today her sodium dropped to 125 from yesterday, she did receive a dose of Tolvaptan yesterday without any her change in her sodium she may need to continue to be on that and hopefully keep her in the hospital for another 24 hours and reevaluated the next 24 hours she denies any headache at this time she has no blurred vision or double vision, she has no muscle twitches, she has no abdominal pain, nausea, vomiting, and she is eating a bit better today more liberate her food and more salt in her diet 10/16: Repeat sodium today is 127. Patient is feeling much improved and back to her baseline. She denies any nausea, no edema. She has been encouraged to continue taking ensure. Patient is currently on a 1200 L fluid restriction. Nephrology has added in sodium chloride tablet 1 g twice daily and plan to monitor overnight. Plan is for discharge home tomorrow. 10/17: Repeat sodium is 130, potassium 5.4, chloride 92, CO2 30, BUN 14 and creatinine 1.19. Patient was started on sodium chloride tablets yesterday. She has had good urine output. is concerned about cough. Lungs are clear to auscultation. Incentive spirometry will be sent home with patient. Dr. Sanchez is recommended continuing the 1200 mL fluid restriction, encourage protein including ensure, avoid thiazide diuretics in the future, maintain salt tablets. Patient will have repeat lab work done in Dr. Carlin's office. Patient will be discharged home today in stable condition. Discharge diagnoses: 1. Hyponatremia likely combination of poor solute intake and excessive fluid intake. 2. Left shoulder pain most likely secondary to osteoarthritis. 3. Recent hospitalization for shortness of breath with negative CTA followed by a negative VQ scan for PE. 4. Hypertension. 5. Hyperlipidemia. 6. Hypothyroidism. 7. Cervical disc disease with retrolisthesis, stable. 8. History of dysphagia to solid foods. 9. Sore throat with negative strep screen. 10. Cough with shortness of breath most likely due to tracheobronchitis. Discharge plan: Home tomorrow. Impression and plan of care have been directed as dictated by the signing physician. Lise Iqbal nurse practitioner acting as scribe for signing physician. Patient Condition at Discharge: Good Plan - Discharge Summary Discharge Rx Participant: No New Discharge Prescriptions: New Ensure Complete 1 can PO TID-W/MEALS #18 can Sodium Chloride Tab 1 gm PO BID #60 tab Continue rOPINIRole HCL [Requip] 0.5 - 1 mg PO HS PRN PRN Reason: RLS Vit C/E/Zn/Coppr/Lutein/Zeaxan [Preservision Areds 2 Softgel] 1 cap PO BID Cyanocobalamin (Vitamin B-12) [Vitamin B-12] 1,000 mcg PO MOWEFR Ferrous Sulfate [Iron (65 MG Elemental)] 325 mg PO Q48H amLODIPine [Norvasc] 2.5 mg PO HS Pantoprazole Sodium 40 mg PO DAILY Cholecalciferol [Vitamin D3 (25 Mcg = 1000 Iu)] 2,000 unit PO MOTUWETH Cholecalciferol [Vitamin D3 (25 Mcg = 1000 Iu)] 4,000 unit PO SUFRSA Nitroglycerin Sl Tabs [Nitrostat] 0.4 mg SUBLINGUAL Q5M PRN PRN Reason: Chest Pain HYDROcodone/APAP 7.5-325MG [[place] 7.5-325] 1 tab PO TID PRN PRN Reason: Pain Simvastatin [Zocor] 10 mg PO HS Levothyroxine Sodium 25 mcg PO DAILY Fluticasone Nasal [place] [Flonase Nasal [place]] 2 sprays EA NOSTRIL BID Aspirin 162 mg PO BID Discontinued Loratadine-Pseudoeph 5-120 mg [Claritin-D 12 Hour] 1 tab PO DAILY #30 tab Triamterene-Hctz 37.5-25Mg [Dyazide 37.5-25 Capsule] 1 cap PO DAILY PRN PRN Reason: Edema Discharge Medication List Cholecalciferol [Vitamin D3 (25 Mcg = 1000 Iu)] 2,000 unit PO MOTUWETH 08/26/18 [History] Cyanocobalamin (Vitamin B-12) [Vitamin B-12] 1,000 mcg PO MOWEFR 08/26/18 [History] Ferrous Sulfate [Iron (65 MG Elemental)] 325 mg PO Q48H 08/26/18 [History] Pantoprazole Sodium 40 mg PO DAILY 08/26/18 [History] Vit C/E/Zn/Coppr/Lutein/Zeaxan [Preservision Areds 2 Softgel] 1 cap PO BID 08/26/18 [History] amLODIPine [Norvasc] 2.5 mg PO HS 08/26/18 [History] rOPINIRole HCL [Requip] 0.5 - 1 mg PO HS PRN 08/26/18 [History] Cholecalciferol [Vitamin D3 (25 Mcg = 1000 Iu)] 4,000 unit PO SUFRSA 10/13/18 [History] HYDROcodone/APAP 7.5-325MG [[place] 7.5-325] 1 tab PO TID PRN 09/24/19 [History] Nitroglycerin Sl Tabs [Nitrostat] 0.4 mg SUBLINGUAL Q5M PRN 09/24/19 [History] Aspirin 162 mg PO BID 10/12/19 [History] Fluticasone Nasal [place] [Flonase Nasal [place]] 2 sprays EA NOSTRIL BID 10/12/19 [History] Levothyroxine Sodium 25 mcg PO DAILY 10/12/19 [History] Simvastatin [Zocor] 10 mg PO HS 10/12/19 [History] Ensure Complete 1 can PO TID-W/MEALS #18 can 10/17/19 [Rx] Sodium Chloride Tab 1 gm PO BID #60 tab 10/18/19 [Rx] Follow up Appointment(s)/Referral(s): Nasra Acosta MD [STAFF PHYSICIAN] - 11/07/19 1:00 pm (Kidney specialist.) Chela Carlin MD [Primary Care Provider] - 10/21/19 8:30 am (If this appointment does not work for you please call and reschedule.) Ambulatory/Diagnostic Orders: Basic Metabolic Panel [LAB.AMB] Location: None Selected Patient Instructions/Handouts: High Protein Diet (DC), Hyponatremia (DC), Fluid Restriction (DC) Activity/Diet/Wound Care/Special Instructions: 1200cc daily fluid restriction Incentive Spirometry to be used 10 times an hour while awake. Discharge Disposition: HOME SELF-CARE
--- NOTE | 2019-10-20 11:23 | CDI ---
Documentation Clarification Form Date: 10/20/2019 11:14:55 AM From: Catarina Riggs Phone: If you have a question about this query, please contact Jackeline Alvarado Regional Branch Manager at [phone] between 8am and 5pm. Admit Date: 10/12/2019 10:40:00 PM Patient Name: Madyson Barragan Visit Number: [id number] Discharge Date: 10/18/2019 01:28:00 PM ATTENTION: The Clinical Documentation Specialists (CDI) and [facility] Coding Staff appreciate your assistance in clarifying documentation. Please respond to the clarification below the line at the bottom and electronically sign. The CDI & [facility] Coding staff will review the response and follow-up if needed. Please note: Queries are made part of the Legal Health Record. If you have any questions, please contact the author of this message via ITS. Dr. Kiersten Quigley Conflicting documentation has been found in the medical record: Per your 3/ PN and nephrology PN Patient's hyponatremia is due to SIADH. Per DCS Patient's hyponatremia is due to poor solute intake and excessive fluid History/Risk Factors: hyponatremia, patient on diuretics Clinical Indicators: Sodium 118 and remained low Treatment: fluid restriction, sodium chloride tablets, repeat labs outpatient In your opinion, what is the most clinically appropriate diagnosis for this patient? hyponatremia due to SIADH hyponatremia due to excessive fluids Other explanation of clinical findings Unable to determine (no explanation for clinical findings) Hyponatremia due to SIADH MTDD
--- NOTE | 2019-10-20 11:32 | CDI ---
Documentation Clarification Form Date: 10/20/2019 11:25:39 AM From: Catarina Riggs Phone: If you have a question about this query, please contact Jackeline Alvarado Agriculture Laboratory Technician at [phone] between 8am and 5pm. Admit Date: 10/12/2019 10:40:00 PM Patient Name: Madyson Barragan Visit Number: [id number] Discharge Date: 10/18/2019 01:28:00 PM ATTENTION: The Clinical Documentation Specialists (CDI) and [facility] Coding Staff appreciate your assistance in clarifying documentation. Please respond to the clarification below the line at the bottom and electronically sign. The CDI & [facility] Coding staff will review the response and follow-up if needed. Please note: Queries are made part of the Legal Health Record. If you have any questions, please contact the author of this message via ITS. Dr. Kiersten Quigley PN 10/14 documentes patient developed CHF IV Lasix given and IV fluids discontinued. Please clarify type of CHF and acutity. History/Risk Factors: Patient with hyponatremia and diuretic stopped Clinical Indicators: SOB VS/Pulse OX: O2 dropped to 93 Echocardiogram Results: not done Chest X Ray: Normal Treatment: IV Lasix In your professional opinion, can you please clarify the acuity and type of CHF if known? Systolic Heart Failure: Acute Chronic Acute on Chronic Diastolic Heart Failure: Acute Chronic Acute on Chronic Systolic & Diastolic Heart Failure: Acute Chronic Acute on Chronic Heart Failure Unable to Determine Other, please specify ___Chronic diastolic heart failure MTDD
== END 2019-10-18 13:28 | disposition home or self-care (01) | DRG 644 ==
LOC: EC 21:00 → 3SCARD 22:40 → 5NMEDONC 10-17 18:08
PROVIDERS: ADMIT Family Medicine; ATTEND Family Medicine
DX: E22.2 Syndrome of inappropriate secretion of antidiuretic hormone (principal); I50.32 Chronic diastolic (congestive) heart failure; E78.5 Hyperlipidemia, unspecified; E86.1 Hypovolemia; E87.6 Hypokalemia; T50.2X5A Adverse effect of carbonic-anhydrase inhibitors, benzothiadiazides and other diuretics, initial encounter; E89.0 Postprocedural hypothyroidism; F03.90 Unspecified dementia, unspecified severity, without behavioral disturbance, psychotic disturbance, mood disturbance, and anxiety; H91.90 Unspecified hearing loss, unspecified ear; I11.0 Hypertensive heart disease with heart failure; J40 Bronchitis, not specified as acute or chronic; K59.00 Constipation, unspecified; M19.90 Unspecified osteoarthritis, unspecified site; M50.90 Cervical disc disorder, unspecified, unspecified cervical region; M81.0 Age-related osteoporosis without current pathological fracture; Z79.82 Long term (current) use of aspirin; Z79.890 Hormone replacement therapy; Z79.899 Other long term (current) drug therapy; Z80.1 Family history of malignant neoplasm of trachea, bronchus and lung; Z82.49 Family history of ischemic heart disease and other diseases of the circulatory system; Z82.5 Family history of asthma and other chronic lower respiratory diseases; Z83.3 Family history of diabetes mellitus; Z86.711 Personal history of pulmonary embolism; Z87.01 Personal history of pneumonia (recurrent); Z87.891 Personal history of nicotine dependence; H35.30 Unspecified macular degeneration; R13.10 Dysphagia, unspecified; Z88.8 Allergy status to other drugs, medicaments and biological substances; Z91.012 Allergy to eggs; Z91.011 Allergy to milk products; Z91.010 Allergy to peanuts; Z90.49 Acquired absence of other specified parts of digestive tract; Z98.51 Tubal ligation status; K21.9 Gastro-esophageal reflux disease without esophagitis; M19.012 Primary osteoarthritis, left shoulder
CPT/HCPCS: 36415; 71045; 71046; 80048; 80053; 81001; 82150; 82533; 82570; 83690; 83735; 83930; 83935; 84133; 84300; 84443; 84484; 84550; 85025; 85610; 85730; 87081; 87430; 93005; 94640; 94760; 96360; 99285

== ENCOUNTER → 2019-11-04 | Outpatient (CLI) | payer MEDICARE, BC ==
[2019-11-04 16:26] LABS: African American GFR (CKD) 59.9 (60.0-200.0); Anion Gap 12.3 mmol/L (4.00-12.00); Carbon Dioxide 28.7 mmol/L (21.6-31.8); Non-African American GFR(CKD) 51.7 (60.0-200.0); Potassium 5.3 mmol/L (3.5-5.5)
== END | disposition home or self-care (01) ==
LOC: LABWHC1 08:33
PROVIDERS: ATTEND Nurse Practitioner Family
DX: E87.1 Hypo-osmolality and hyponatremia (principal)
CPT/HCPCS: 36415; 80048

== ENCOUNTER → 2020-04-12 | Outpatient (CLI) | payer MEDICARE, BC ==
[2020-04-12 17:07] LABS: African American GFR (CKD) 48.1 (60.0-200.0); Anion Gap 7.2 mmol/L (4.00-12.00); BUN/Creat Ratio 11.67 Ratio (12.00-20.00); Calcium 9.8 mg/dL (8.7-10.3); Carbon Dioxide 28.8 mmol/L (21.6-31.8); Non-African American GFR(CKD) 41.5 (60.0-200.0); Potassium 4.9 mmol/L (3.5-5.5)
== END | disposition home or self-care (01) ==
LOC: LABWHC1 08:59
PROVIDERS: ATTEND Nurse Practitioner Family
DX: E87.1 Hypo-osmolality and hyponatremia (principal)
CPT/HCPCS: 36415; 80048

== ENCOUNTER → 2020-05-22 | Outpatient (CLI) | payer MEDICARE, BC ==
[2020-05-22 10:49] LABS: HCT 35.2 % (34.0-46.0); HGB 11.7 gm/dL (11.4-16.0); MCH 28.5 pg (25.0-35.0); MCHC 33.2 g/dL (31.0-37.0); Mean Platelet Volume 8.4; Platelet Count 189 k/uL (150-450); RBC 4.09 m/uL (3.80-5.40); RDW 12.9 % (11.5-15.5); WBC 5.1 k/uL (3.8-10.6)
[2020-05-22 10:53] LABS: Appearance,Urine Clear (Clear); Bilirubin,Urine Negative (Negative); Blood,Urine Negative (Negative); Color,Urine Colorless; Glucose,Urine (UA) Negative (Negative); Ketones,Urine Negative (Negative); Leukocyte Esterase,Urine Moderate (Negative); Nitrite,Urine Negative (Negative); Protein,Urine Negative (Negative); RBC,Urine 1 /hpf (0-5); Specific Gravity,Urine 1.005 (1.001-1.035); Squamous Epithelial Cell,Urine 1 /hpf (0-4); Urobilinogen,Urine <2.0 mg/dL (<2.0); WBC,Urine 2 /hpf (0-5)
[2020-05-22 17:45] LABS: Hemoglobin A1C 5.4 % (4.0-6.0)
[2020-05-22 21:26] LABS: T4, Free (Free Thyroxine) 1.3 ng/dL (0.80-1.80)
[2020-05-22 23:50] LABS: African American GFR (CKD) 48.1 (60.0-200.0); Albumin 4.5 g/dL (3.80-4.90); Albumin/Globulin Ratio 2.65 (1.60-3.17); BUN/Creat Ratio 10.83 Ratio (12.00-20.00); Calcium 9.6 mg/dL (8.7-10.3); Chol/HDL Ratio 2.77; Globulin 1.7 g/dL (1.6-3.3); LDL Cholesterol,Calculated 57.8 mg/dL (0.0-131.0); Non-African American GFR(CKD) 41.5 (60.0-200.0); Potassium 4.4 mmol/L (3.5-5.5); Total Bilirubin 0.5 mg/dL (0.2-1.2); Total Protein 6.2 g/dL (6.2-8.2); VLDL Calculation 34.2 mg/dL (5.00-40.00)
== END | disposition home or self-care (01) ==
LOC: LABWHC1 09:11
PROVIDERS: ATTEND Family Medicine
DX: E87.1 Hypo-osmolality and hyponatremia (principal); G89.4 Chronic pain syndrome; I10 Essential (primary) hypertension; E78.5 Hyperlipidemia, unspecified; E55.9 Vitamin D deficiency, unspecified; E11.9 Type 2 diabetes mellitus without complications; E53.8 Deficiency of other specified B group vitamins
CPT/HCPCS: 36415; 80053; 80061; 81001; 82306; 82550; 82607; 83036; 84439; 84443; 85027

== ENCOUNTER → 2020-06-25 | Outpatient (CLI) | payer MEDICARE, BC | END | disposition home or self-care (01) | LOC: LABWHC1 08:54 | PROVIDERS: ATTEND Otolaryngology | DX: J30.89 Other allergic rhinitis (principal); R14.0 Abdominal distension (gaseous) | CPT/HCPCS: 36415; 86001 ==

== ENCOUNTER → 2020-07-10 | Outpatient (CLI) | payer MEDICARE, BC ==
[2020-07-10 09:45] LABS: Basophils # (A) 0.1 k/uL (0-0.2); Basophils % (A) 1 %; Eosinophils # (A) 1.4 k/uL (0-0.7); Eosinophils % (A) 22 %; HCT 36.3 % (34.0-46.0); Lymphocytes # (A) 1.8 k/uL (1.0-4.8); Lymphocytes % (A) 28 %; MCH 29.3 pg (25.0-35.0); MCHC 33.1 g/dL (31.0-37.0); MCV 88.4 fL (80.0-100.0); Monocytes # (A) 0.3 k/uL (0-1.0); Monocytes % (A) 5 %; Neutrophils # (A) 2.7 k/uL (1.3-7.7); Platelet Count 189 k/uL (150-450); RBC 4.11 m/uL (3.80-5.40); RDW 13.1 % (11.5-15.5); WBC 6.3 k/uL (3.8-10.6)
[2020-07-10 16:13] LABS: Uric Acid 6.9 mg/dL (2.9-7.7)
[2020-07-10 16:21] LABS: T4, Free (Free Thyroxine) 1.1 ng/dL (0.80-1.80)
[2020-07-10 16:26] LABS: Alpha Fetoprotein, Tumor Mkr <2.5 ng/mL (0.0-7.9); Carcinoembryonic Antigen 0.8 ng/mL (0.0-4.9)
[2020-07-10 16:34] LABS: Cancer Antigen 19-9 6.9 U/mL (0.0-34.9)
[2020-07-10 16:50] LABS: Cancer Antigen 125 9.2 U/mL (0.0-30.1)
== END | disposition home or self-care (01) ==
LOC: LABWHC1 08:30
PROVIDERS: ATTEND Family Medicine
DX: Z00.00 Encounter for general adult medical examination without abnormal findings (principal); N18.31 Chronic kidney disease, stage 3a; R63.0 Anorexia
CPT/HCPCS: 36415; 82105; 82378; 83690; 84134; 84165; 84439; 84443; 84550; 85025; 86301; 86304; 86334

== ENCOUNTER → 2020-08-21 | Outpatient (CLI) | payer MEDICARE, BC ==
[2020-08-21 15:26] LABS: African American GFR (CKD) 39.9 (60.0-200.0); Albumin 4.6 g/dL (3.80-4.90); Albumin/Globulin Ratio 2.71 (1.60-3.17); Anion Gap 7.1 mmol/L (4.00-12.00); BUN/Creat Ratio 12.86 Ratio (12.00-20.00); Calcium 9.7 mg/dL (8.7-10.3); Carbon Dioxide 30.9 mmol/L (21.6-31.8); Globulin 1.7 g/dL (1.6-3.3); Non-African American GFR(CKD) 34.4 (60.0-200.0); Potassium 5.3 mmol/L (3.5-5.5); Total Bilirubin 0.6 mg/dL (0.2-1.2); Total Protein 6.3 g/dL (6.2-8.2)
== END | disposition home or self-care (01) ==
LOC: LABWHC1 08:06
PROVIDERS: ATTEND Nurse Practitioner Family
DX: E87.1 Hypo-osmolality and hyponatremia (principal)
CPT/HCPCS: 36415; 80053

== ENCOUNTER → 2020-09-28 | Outpatient (CLI) | payer MEDICARE, BC ==
--- NOTE | 2020-10-02 13:18 | MM ---
Reason for exam: screening (asymptomatic). Last mammogram was performed 2 years and 8 months ago. History: Patient is postmenopausal. Family history of breast cancer in paternal aunt. Physical Findings: A clinical breast exam by your physician is recommended on an annual basis and results should be correlated with mammographic findings. MG 3D Screening Mammo W/Cad Bilateral CC and MLO view(s) were taken. Prior study comparison: January 20, 2018, bilateral MG screening mammo w CAD. January 06, 2017, bilateral MG 3d screening mammo w/cad. There are scattered fibroglandular densities. There is chronic nodularity in the left breast. No significant changes when compared with prior studies. ASSESSMENT: Negative, BI-RAD 1 RECOMMENDATION: Routine screening mammogram of both breasts in 1 year.
== END | disposition home or self-care (01) ==
LOC: RADMAMWWP 15:53
PROVIDERS: ATTEND Family Medicine
DX: Z12.31 Encounter for screening mammogram for malignant neoplasm of breast (principal)
CPT/HCPCS: 77063; 77067

== ENCOUNTER → 2020-09-28 | Outpatient (CLI) | payer MEDICARE, BC ==
--- NOTE | 2020-09-29 09:46 | XR ---
EXAMINATION TYPE: XR chest 2V DATE OF EXAM: 09/28/2020 COMPARISON: 10/14/2019, CT 10/04/2019 HISTORY: 84-year-old female weight loss, anxiety, pulmonary hypertension TECHNIQUE: Frontal and lateral views FINDINGS: Heart normal size. Mild atherosclerotic arch calcifications. Tiny nodular density projecting at the l eft base compatible with calcified granuloma seen on patient's prior CT. Underlying at least moderate -sized hiatal hernia noted. Accentuated mid thoracic kyphosis with moderate endplate spondylosis. No kobe consolidation or pleural effusion. IMPRESSION: Moderate-sized hiatal hernia. Correlate as to if this may be contributing to any of the patient's sym ptoms. The patient's CT suggests some surgical material at this site. Benign calcified granuloma at t he left base. No acute process seen.
[2020-10-01 12:06] LABS: Egg Yolk IgE Class CLASS 0
[2020-10-03 00:49] LABS: Chocolate IgG <2.0 mcg/mL (< 2.0); Peanut IgG 4.9 mcg/mL (< 2.0)
[2020-10-03 00:50] LABS: Banana IgG 19.6 mcg/mL (< 2.0); Crab IgG <2.0 mcg/mL (< 2.0); Pork IgG 2.6 mcg/mL (< 2.0); Tomato IgG 3.6 mcg/mL (< 2.0); Walnut IgG <2.0 mcg/mL (< 2.0)
[2020-10-03 00:51] LABS: Apple IgG 2.5 mcg/mL (< 2.0); Coffee IgG <2.0 mcg/mL (< 2.0); Cow's Milk IgG 51.8 mcg/mL (< 2.0); Orange IgG 2.7 mcg/mL (< 2.0); Potato IgG 3.2 mcg/mL (< 2.0); Wheat IgG 4.6 mcg/mL (< 2.0)
[2020-10-03 00:52] LABS: Celery IgG 2.8 mcg/mL (< 2.0); Chicken Meat IgG <2.0 mcg/mL (< 2.0); Corn IgG 5.3 mcg/mL (< 2.0); Oat IgG 6.1 mcg/mL (< 2.0); Rice IgG 10.2 mcg/mL (< 2.0)
[2020-10-03 11:01] LABS: Tea IgG <2.0 mcg/mL
== END | disposition home or self-care (01) ==
LOC: LABWHC1 16:16
PROVIDERS: ATTEND Family Medicine
DX: K44.9 Diaphragmatic hernia without obstruction or gangrene (principal); J84.10 Pulmonary fibrosis, unspecified; I27.20 Pulmonary hypertension, unspecified; K90.49 Malabsorption due to intolerance, not elsewhere classified; R14.0 Abdominal distension (gaseous)
CPT/HCPCS: 36415; 71046; 86001; 86003

== ENCOUNTER → 2020-11-20 | Outpatient (CLI) | payer MEDICARE, BC ==
[2020-11-20 10:20] LABS: Creatinine,Urine Random 72.5 mg/dL; Protein/Creatinine Ratio,Urine 0.179
[2020-11-20 15:32] LABS: HCT 39.8 % (37.2-46.3); HGB 12.7 g/dL (12.0-15.0); MCH 28.9 pg (27.0-32.0); MCHC 31.9 g/dL (32.0-37.0); MCV 90.7 fL (80.0-97.0); Mean Platelet Volume 11.9 fL (9.5-12.2); Platelet Count 216 X 10*3/uL (140-440); RBC 4.39 X 10*6/uL (4.10-5.20); RDW 12.6 % (11.5-14.5); WBC 6.76 X 10*3/uL (4.50-10.00)
[2020-11-21 00:23] LABS: % Iron Saturation 17.04 (12.00-45.00); African American GFR (CKD) 43.3 (60.0-200.0); Albumin 4.8 g/dL (3.80-4.90); Albumin/Globulin Ratio 2.82 (1.60-3.17); Anion Gap 14.2 mmol/L (4.00-12.00); BUN/Creat Ratio 12.31 Ratio (12.00-20.00); Calcium 10.3 mg/dL (8.7-10.3); Carbon Dioxide 22.8 mmol/L (21.6-31.8); Globulin 1.7 g/dL (1.6-3.3); Magnesium 1.9 mg/dL (1.5-2.4); Non-African American GFR(CKD) 37.4 (60.0-200.0); Potassium 4.6 mmol/L (3.5-5.5); Total Bilirubin 0.7 mg/dL (0.2-1.2); Total Protein 6.5 g/dL (6.2-8.2)
[2020-11-21 00:30] LABS: Ferritin 153.6 ng/mL (10.0-291.0)
== END | disposition home or self-care (01) ==
LOC: LABWHC1 08:42
PROVIDERS: ATTEND Nurse Practitioner Family
DX: E87.1 Hypo-osmolality and hyponatremia (principal); D64.9 Anemia, unspecified; N25.81 Secondary hyperparathyroidism of renal origin; E55.9 Vitamin D deficiency, unspecified; M10.9 Gout, unspecified; R80.9 Proteinuria, unspecified
CPT/HCPCS: 36415; 80053; 82306; 82570; 82728; 83540; 83550; 83735; 83970; 84100; 84156; 84550; 85027

== ENCOUNTER → 2021-01-18 | Outpatient (CLI) | payer MEDICARE, BC ==
--- NOTE | 2021-01-23 09:33 | P.ARTDOP ---
Arterial Doppler LOWER EXTREMITY ARTERIAL DOPPLER: DATE OF SERVICE: 01/18/2021 Reason for study: Bilateral foot pain. Doppler waveforms: Multiphasic bilaterally throughout. Pulse volume recording: []. Pressure gradients: None. Ankle-brachial indices: Greater than 1 bilaterally. Toe brachial indices: 0.72 on the right, 0.75 on the left Impression: Normal study.
== END | disposition home or self-care (01) ==
LOC: RADUSWWP 11:41
PROVIDERS: ATTEND Family Medicine
DX: I73.9 Peripheral vascular disease, unspecified (principal)
CPT/HCPCS: 93922

== ENCOUNTER → 2021-05-29 | Outpatient (CLI) | payer MEDICARE, BC ==
[2021-05-29 20:32] LABS: Basophils # (A) 0.03 X 10*3/uL (0.00-0.10); Basophils % (A) 0.5 %; Eosinophils # (A) 0.21 X 10*3/uL (0.04-0.35); Eosinophils % (A) 3.8 %; HCT 40.3 % (37.2-46.3); HGB 12.5 g/dL (12.0-15.0); Lymphocytes # (A) 2.14 X 10*3/uL (0.90-5.00); Lymphocytes % (A) 39.2 %; MCH 28.3 pg (27.0-32.0); MCV 91.2 fL (80.0-97.0); Mean Platelet Volume 11.9 fL (9.5-12.2); Monocytes # (A) 0.41 X 10*3/uL (0.20-1.00); Monocytes % (A) 7.5 %; Neutrophils # (A) 2.65 X 10*3/uL (1.80-7.70); Neutrophils % (A) 48.6 %; Platelet Count 218 X 10*3/uL (140-440); RBC 4.42 X 10*6/uL (4.10-5.20); RDW 12.6 % (11.5-14.5); WBC 5.46 X 10*3/uL (4.50-10.00)
[2021-05-29 21:20] LABS: African American GFR (CKD) 46.3 (60.0-200.0); Albumin 4.9 g/dL (3.8-4.9); Albumin/Globulin Ratio 2.58 (1.60-3.17); Anion Gap 15.9 mmol/L (4.00-12.00); BUN/Creat Ratio 11.54 Ratio (12.00-20.00); Blood Urea Nitrogen 14.2 mg/dL (9.0-27.0); Calcium 9.8 mg/dL (8.7-10.3); Carbon Dioxide 23.7 mmol/L (21.6-31.8); Chol/HDL Ratio 2.65 Ratio; Globulin 1.9 g/dL (1.6-3.3); HDL Cholesterol 63.5 mg/dL (40.00-60.00); LDL Cholesterol,Calculated 61.5 mg/dL (0.0-131.0); Magnesium 2.1 mg/dL (1.5-2.4); Potassium 4.8 mmol/L (3.5-5.5); T4, Free (Free Thyroxine) 1.41 ng/dL (0.800-1.800); Total Bilirubin 0.7 mg/dL (0.30-1.20); Total Protein 6.7 g/dL (6.2-8.2); Uric Acid 7.9 mg/dL (2.9-7.7)
== END | disposition home or self-care (01) ==
LOC: LABWHC1 09:29
PROVIDERS: ATTEND Family Medicine
DX: I12.9 Hypertensive chronic kidney disease with stage 1 through stage 4 chronic kidney disease, or unspecified chronic kidney disease (principal); E78.5 Hyperlipidemia, unspecified; E55.9 Vitamin D deficiency, unspecified; G25.81 Restless legs syndrome; N18.31 Chronic kidney disease, stage 3a
CPT/HCPCS: 36415; 80053; 80061; 82306; 82550; 82607; 83735; 84165; 84439; 84443; 84550; 85025; 86334

== ENCOUNTER → 2021-08-28 | Outpatient (CLI) | payer MEDICARE, BC ==
--- NOTE | 2021-08-29 07:17 | CT ---
EXAMINATION TYPE: CT hip LT wo con DATE OF EXAM: 08/28/2021 COMPARISON: CT abdomen and pelvis 2016 HISTORY: Recent fall, LT pain hip into buttocks. CT DLP: 317.50 mGycm Automated exposure control for dose reduction was used. CT left hip without contrast FINDINGS: Osseous structures are demineralized but there is no acute fracture or dislocation in the left hip. M [id number] axial joint space loss redemonstrated with mild collar spurring head neck junction. T here is capsular calcification identified. Visualized portion of the inferior Pubic symphysis remains intact. Stable small fat-containing left inguinal hernia is partially imaged. No concerning new focal fluid c ollection or hematoma. No groin adenopathy. Muscle bulk is maintained in the left thigh. Some sigmoid colonic diverticula are redemonstrated. There is facet arthropathy in the lower lumbar spine again seen. There is severe disc space narrowing with vacuum disc phenomenon at L5-S1 level redemonstrated. There is stable grade 1 anterolisthesis L 4 on L5 with new vacuum disc phenomenon and mild disc space narrowing L4-L5 level. IMPRESSION: No acute fracture or dislocation in the left hip.
== END | disposition home or self-care (01) ==
LOC: RADCTMAIN 18:22
PROVIDERS: ATTEND Family Medicine
DX: M25.552 Pain in left hip (principal)

== ENCOUNTER → 2022-02-04 | Outpatient (CLI) | payer MEDICARE, BC ==
--- NOTE | 2022-02-04 09:24 | XR ---
Sacrum and coccyx HISTORY: Back pain 3 views of the sacrum and coccyx Degenerative disc changes are present in the lower lumbar spine, anterolisthesis grade 1 L4-5, sclero sis in the posterior elements consistent with facet arthropathy. Sacrum and coccyx show no fracture. Sacroiliac joints are normal. Scattered probable vascular calcifications are present within the pelvi s. Bone mineralization may be slightly reduced. IMPRESSION: No evident abnormality of the sacrum or coccyx. Degenerative disc disease in the lower claudia mbar spine with facet arthropathy, spondylolisthesis L4-5.
== END | disposition home or self-care (01) ==
LOC: RADXRMAIN 08:06
PROVIDERS: ATTEND Nurse Practitioner Gerontology
DX: M51.26 Other intervertebral disc displacement, lumbar region (principal); M43.16 Spondylolisthesis, lumbar region; M47.816 Spondylosis without myelopathy or radiculopathy, lumbar region
CPT/HCPCS: 72220

== ENCOUNTER → 2022-03-22 | Outpatient (CLI) | payer MEDICARE, BC ==
--- NOTE | 2022-03-23 04:20 | MR ---
EXAMINATION TYPE: MR iac wo/w con DATE OF EXAM: 03/22/2022 COMPARISON: 03/29/2010 HISTORY: Hearing loss, rt side top of head-lump due to trauma CONTRAST: Standard multiplanar, multisequence MRI departmental protocol images were obtained without contrast a nd with 5 mL intravenous Gadavist gadolinium contrast. There is diffuse cerebral cortical atrophy. There is no mass effect or midline shift. Diffusion image s show no sign of an acute infarct. There is patchy increased signal in the periventricular white mat ter that measures up to 1 cm in thickness. This has progressed compared to old exams the brainstem is intact. No evidence of posterior fossa mass. The internal auditory canals appear normal. No evidence of cerebellopontine angle mass. Contrast imag es show no pathologic enhancement. There is normal signal pattern of the mastoid sinuses. No evidence of mastoiditis. There is normal enhancement of the venous sinuses. The corpus callosum is intact. Se lla turcica is intact. No evidence of orbital mass. IMPRESSION: Cerebral atrophy. White matter signal changes that have progressed compared to old exam and consisten t with microvascular ischemia or demyelinating disease. No focal posterior fossa abnormality. Posterior fossa and not changed compared to the old exam.
== END | disposition home or self-care (01) ==
LOC: RADMRIMAIN 10:05
PROVIDERS: ATTEND Nurse Practitioner Family
DX: G31.9 Degenerative disease of nervous system, unspecified (principal)
CPT/HCPCS: 70553; A9585

== ENCOUNTER → 2022-05-26 | Outpatient (CLI) | payer MEDICARE, BC ==
--- NOTE | 2022-05-26 14:10 | US ---
EXAMINATION TYPE: US venous doppler duplex LE BI DATE OF EXAM: 05/26/2022 2:01 PM COMPARISON: NONE CLINICAL HISTORY: R79.9 abn labs, R07.9 CHEST PAIN, UNSPECIFIED. Elevated d-dimer, no h/o dvt SIDE PERFORMED: Bilateral TECHNIQUE: The lower extremity deep venous system is examined utilizing real time linear array sonog maribell with graded compression, doppler sonography and color-flow sonography. VESSELS IMAGED: Common Femoral Vein Deep Femoral Vein Greater Saphenous Vein * Femoral Vein Popliteal Vein Small Saphenous Vein * Proximal Calf Veins (* superficial vessels) Grayscale, color doppler, spectral doppler imaging performed of the deep veins of the lower extremiti es. There is normal flow, compressibility, vascular waveforms. Right Leg: Negative for DVT Left Leg: Negative for DVT Dr Carlin called on cell phone with negative findings IMPRESSION: No ultrasound evidence for deep venous thrombosis of the bilateral lower extremities.
--- NOTE | 2022-05-26 16:43 | NM ---
EXAMINATION TYPE: NM pul vent and perfuse DATE OF EXAM: 05/26/2022 COMPARISON: NONE HISTORY: Chest pain TECHNIQUE: Utilizing inhalation of 37.9 mCi Tc 99m DTPA aerosol and intravenous injection of 4.7 mCi of Tc 99m MAA, ventilation and perfusion images are acquired post injection in multiple projections. FINDINGS: Radiotracer distribution appears normal and symmetrical. No moderate or large mismatched defects are evident. IMPRESSION: Low probability for pulmonary embolism
== END | disposition home or self-care (01) ==
LOC: RADUSWWP 13:29
PROVIDERS: ATTEND Family Medicine
DX: R07.9 Chest pain, unspecified (principal); R79.9 Abnormal finding of blood chemistry, unspecified
CPT/HCPCS: 93970; 78582; A9540; A9567

== ENCOUNTER → 2022-06-11 | Outpatient (CLI) | payer MEDICARE, BC ==
--- NOTE | 2022-06-11 11:56 | CA ---
Stress Echo Report Madyson Barragan Age: 86 Gender: F : 1935 Exam Date: 06/11/2022 09:27 Exam Location: [place] [facility] Ht (in): 60 Wt (lb): 118 Ordering Physician: Chela Carlin MD Referring Physician: LIZ,, Professor Of Geology: Nan Monroy RDCS Technologist Procedure CPT: Indication: R07.9 CHEST PAIN ICD-9 Codes: Rhythm: Patient History: Cardiac Medications: Medications in past 24 hours: Contrast: Stress Results Protocol: Star Total dose(mL): Exercise Duration (min:sec): 2.[address] Depression (mm): Angina Score: Feliciano Score: METS: 4.2 Resting HR: 87 Resting BP: 159 / 90 Peak HR: 141 Peak BP: 194 / 102 Max Predicted HR: 134 105 % Max Predicted HR Target HR: 114 Double Product: [id number] Stress Summary: PT REACHED TARGET HEART RATE. BP Response: Reason for Termination: Cardiac Symptoms: ECG Analysis Resting ECG: Stress ECG: Arrhythmia: Echo Analysis Resting Echo: Peak Echo Analysis: MEASUREMENTS (Male/Female) Normal Values CONCLUSIONS Exercise stress echo shows poor exercise capacity with shortness of breath in less than 3 minutes The blood pressure 194/102 mmHg Peak heart rate 141 beats a minute No ECG evidence for ischemia No echocardiographic evidence for ischemia Very low workload achieved Baseline 2-D echo shows preserved systolic function with LVH Dr. Steve Elise MD (Electronically Signed) Final Date: 11 June 2022 11:55
== END | disposition home or self-care (01) ==
LOC: RADNMMAIN 08:41
PROVIDERS: ATTEND Family Medicine
DX: R07.9 Chest pain, unspecified (principal); R06.02 Shortness of breath
CPT/HCPCS: 93351

== ENCOUNTER → 2023-02-27 | Outpatient (CLI) | payer MEDICARE ==
[2023-02-27 15:35] LABS: HCT 36.5 % (37.2-46.3); HGB 11.5 d/dL (12.0-15.0); MCH 29.1 pg (27.0-32.0); MCHC 31.5 d/dL (32.0-37.0); MCV 92.4 FL (80.0-97.0); Mean Platelet Volume 11.8 FL (9.5-12.2); NRBC Per 100 WBC 0 X 10*3/uL (0.00-0.01); Platelet Count 173 X 10*3/uL (140-440); RBC 3.95 X 10*6/uL (4.10-5.20); RDW 12.7 % (11.5-14.5)
[2023-02-27 15:36] LABS: Basophils # (A) 0.02 X 10*3/uL (0.00-0.10); Basophils % (A) 0.3 %; Eosinophils # (A) 0.21 X 10*3/uL (0.04-0.35); Eosinophils % (A) 3.6 %; Lymphocytes # (A) 1.95 X 10*3/uL (0.90-5.00); Lymphocytes % (A) 33.1 %; Monocytes # (A) 0.41 X 10*3/uL (0.20-1.00); Monocytes % (A) 6.9 %; Neutrophils # (A) 3.29 X 10*3/uL (1.80-7.70); Neutrophils % (A) 55.8 %
[2023-02-27 15:42] LABS: % Iron Saturation 21.15 (12.00-45.00); BUN/Creat Ratio 21.62 Ratio (12.00-20.00); Blood Urea Nitrogen 34.6 mg/dL (9.0-27.0); Calcium 10.1 mg/dL (8.7-10.3); Carbon Dioxide 21.9 mmol/L (21.6-31.8); Chloride 106 mmol/L (96-109); Glucose 86 mg/dL (70-110); Iron 77 UG/DL (50-170); Potassium 4.9 mmol/L (3.5-5.5); Sodium 139 mmol/L (135-145); Total Iron Binding Capacity 364 UG/DL (228-460)
== END | disposition home or self-care (01) ==
LOC: LABWHC1 07:56
PROVIDERS: ATTEND Family Medicine
DX: N18.32 Chronic kidney disease, stage 3b (principal); D63.1 Anemia in chronic kidney disease
CPT/HCPCS: 36415; 80048; 83010; 83540; 83550; 85025; 85045

== ENCOUNTER → 2023-07-01 | Outpatient (CLI) | payer MEDICARE ==
[2023-07-01 16:17] LABS: HCT 34.5 % (37.2-46.3); HGB 10.7 g/dL (12.0-15.0); MCH 29.5 pg (27.0-32.0); Mean Platelet Volume 11.5 FL (9.5-12.2); NRBC Per 100 WBC 0 X 10*3/uL (0.00-0.01); Platelet Count 183 X 10*3/uL (140-440); RBC 3.63 X 10*6/uL (4.10-5.20); WBC 5.54 X 10*3/uL (4.50-10.00)
[2023-07-01 16:18] LABS: Basophils # (A) 0.02 X 10*3/uL (0.00-0.10); Basophils % (A) 0.4 %; Eosinophils # (A) 0.23 X 10*3/uL (0.04-0.35); Eosinophils % (A) 4.2 %; Lymphocytes # (A) 1.98 X 10*3/uL (0.90-5.00); Lymphocytes % (A) 35.7 %; Monocytes # (A) 0.46 X 10*3/uL (0.20-1.00); Monocytes % (A) 8.3 %; Neutrophils # (A) 2.82 X 10*3/uL (1.80-7.70); Neutrophils % (A) 50.9 %
[2023-07-01 16:29] LABS: % Iron Saturation 18.16 (12.00-45.00); ALT 21 U/L (8-44); AST 23 U/L (13-35); Albumin 4.5 g/dL (3.8-4.9); Albumin/Globulin Ratio 2.81 Ratio (1.60-3.17); Alkaline Phosphatase 70 U/L (41-126); Blood Urea Nitrogen 15.6 mg/dL (9.0-27.0); Calcium 9.2 mg/dL (8.7-10.3); Carbon Dioxide 22.7 mmol/L (21.6-31.8); Chloride 103 mmol/L (96-109); Chol/HDL Ratio 2.63 Ratio; Globulin 1.6 g/dL (1.6-3.3); Glucose 85 mg/dL (70-110); Iron 71 UG/DL (50-170); Potassium 4.9 mmol/L (3.5-5.5); Sodium 140 mmol/L (135-145); T4, Free (Free Thyroxine) 1.23 ng/dL (0.80-1.80); Total Bilirubin 0.5 mg/dL (0.3-1.2); Total Iron Binding Capacity 391 UG/DL (228-460); Total Protein 6.1 g/dL (6.2-8.2)
== END | disposition home or self-care (01) ==
LOC: LABWHC1 07:56
PROVIDERS: ATTEND Family Medicine
DX: E03.9 Hypothyroidism, unspecified (principal); E78.5 Hyperlipidemia, unspecified; N18.32 Chronic kidney disease, stage 3b; D63.1 Anemia in chronic kidney disease
CPT/HCPCS: 36415; 80053; 80061; 83540; 83550; 84439; 84443; 85025

== ENCOUNTER → 2023-07-07 | Outpatient (CLI) | payer MEDICARE ==
--- NOTE | 2023-07-10 08:44 | MR ---
EXAMINATION TYPE: MR lumbar spine wo con DATE OF EXAM: 07/07/2023 12:20 PM CLINICAL INDICATION:Female, 87 years old with history of M51.06 intervertebral disc disorder; PHH, Lo w back pain into legs COMPARISON: None TECHNIQUE: Multi planar, multi sequence imaging was performed utilizing: T1-weighted, T2-weighted, a nd turbo inversion recovery imaging of the lumbar spine. IV Contrast: cc . (None if empty) FINDINGS: Alignment: The lumbar vertebral bodies have preserved heights with grade 1 anterolisthesis of L4 on L 5. Cord: The conus medullaris and the distal spinal cord appear unremarkable with regards to their signa l intensity and morphology. Bones/Discs: Minimal disc degeneration changes worse at L5-S1 with disc space narrowing, osteophytes and Modic endplate changes. Scattered high T1/high T2 signal lesions likely representing vertebral carmen dy hemangiomas versus focal fat. Intervertebral disc signal is maintained. T12-L1: Disc bulge and facet joint arthropathy result in mild spinal canal and mild bilateral neural foraminal stenosis. L1-L2: Disc bulge and facet joint arthropathy result in mild spinal canal and severe bilateral. Bilat eral neural foraminal stenosis. L2-L3: Disc bulge and facet joint arthropathy result in mild spinal canal and moderate bilateral neur al foraminal stenosis. L3-L4: Disc bulge and facet joint arthropathy result in mild spinal canal and moderate to severe righ t and moderate left bilateral neural foraminal stenosis. L4-L5: Disc uncovering from grade 1 anterolisthesis and facet joint arthropathy with moderate to evelyn re spinal canal stenosis and moderate to severe bilateral neural foraminal stenosis. L5-S1: The disc is rounded posterior morphology without significant spinal canal stenosis. Facet join t arthropathy with severe bilateral neural foraminal stenosis. Additional multilevel neural foraminal stenosis partially visualized on sagittal imaging only. Other findings: Peripelvic renal cysts present with [id number] hiatal hernia. IMPRESSION: 1. No definitive evidence of disc herniation. 2. Grade 1 anterolisthesis of L4 and L5 with moderate to severe spinal canal stenosis 3. Moderate to severe disc degeneration with associated osteoarthritic changes with neural foraminal stenosis at multiple levels. Findings worse at L5-S1 and L1-L2.
== END | disposition home or self-care (01) ==
LOC: RADMRIMAIN 11:23
PROVIDERS: ATTEND Family Medicine
DX: M51.06 Intervertebral disc disorders with myelopathy, lumbar region (principal); M43.16 Spondylolisthesis, lumbar region; M48.061 Spinal stenosis, lumbar region without neurogenic claudication; M47.16 Other spondylosis with myelopathy, lumbar region; M99.73 Connective tissue and disc stenosis of intervertebral foramina of lumbar region
CPT/HCPCS: 72148